=== PATIENT | female | born 2000 | race African-American/Black ===

== ENCOUNTER 2021-02-25 11:58 | Emergency (ER) | payer OTHER, SELFPAY ==
[2021-02-25 12:04] VITALS: BP 150/73; PULSE 81; RESP 18; TEMP 36.6; O2SAT 100
[2021-02-25 12:39] LABS: Basophils Percent Auto 0.3 % (0.2-1.2); Hematocrit 41.2 % (37.0-47.0); Hemoglobin 12.6 g/dL (12.0-15.0); Immature Granulocyte Absolute 0.01 K/mm3 (0.00-0.031); Immature Granulocyte Percent A 0.1 % (0-0.5); Lymphocytes Absolute Auto 3.13 K/mm3 (0.9-3.2); Lymphocytes Percent Auto 39.8 % (18.3-44.2); Mean Corpuscular HGB Conc 30.6 g/dl (32-36); Mean Corpuscular Hemoglobin 27.5 pg (26-34); Mean Platelet Volume 11.6 fl (7.4-10.4); Monocytes Absolute Auto 0.5 K/mm3 (0.1-0.6); Monocytes Percent Auto 5.7 % (2.6-8.5); Neutrophils Absolute Auto 4.3 K/mm3 (1.3-6.7); Neutrophils Percent Auto 54.1 % (45.5-73.1); Platelet Count Result 291 k/mm3 (150-375); Red Blood Count 4.58 M/mm3 (4.2-5.4); White Blood Count 7.9 K/mm3 (4.5-10.0)
[2021-02-25 12:57] LABS: Alanine Aminotransferase 29 U/L (4-35); Alkaline Phosphatase 74 U/L (38-126); Anion Gap 7 mmol/L (8-16); Aspartate Amino Transferase 26 U/L (14-36); Bilirubin,Total 0.5 mg/dL (0.2-1.3); Blood Urea Nitrogen 10 mg/dL (7-17); Calcium 10.1 mg/dL (8.4-10.2); Carbon Dioxide 23 mmol/L (22-30); Chloride 107 mmol/L (98-107); Estimated CRCL calculation 136 ml/min; Estimated Glomerular Filt Rate > 60; Glucose 93 mg/dL (65-110); Lipase 56 U/L (23-300); Potassium 3.9 mmol/L (3.4-5.0); Sodium 137 mmol/L (137-145)
[2021-02-25 13:13] LABS: Add Urine Microscopic? YES; Appearance Urine Clear (Clear); Bacteria Urine Trace /hpf; Bilirubin Urine Negative (Negative); Blood Urine 1+ (Negative); Color Urine Yellow (Yellow); Glucose Urine UA Negative (Negative); Ketones Urine 1+ mg/dL (Negative); Leukocyte Esterase Ur Negative LEU/UL (Negative); Mucus Urine Rare /lpf; Nitrate Urine Negative (Negative); Protein Urine 1+ mg/dL (Negative); RBC Urine 0-2 /hpf (0-2); Urobilinogen Urine Negative mg/dL (<2.0); WBC Urine 0-3 /hpf
[2021-02-25 13:14] LABS: Specific Grav Ur 1.032 (1.001-1.035)
--- NOTE | 2021-02-25 14:56 | ED.GENADULT ---
HPI - General Adult General Chief complaint: Abdominal Pain Stated complaint: abd pain Time Seen by Provider: 02/25/21 14:23 Source: patient and RN notes reviewed Mode of arrival: ambulatory Limitations: no limitations History of Present Illness HPI narrative: Patient is 20 years old -[place] female presents to the ED with vaginal spotting for the last 1-1/2 weeks, diarrhea for the last 3 weeks, nausea since last night. Patient denies any fever, chills, or urinary symptoms. Patient denies exposure to anybody with COVID-19. Patient is not vaccinated. Patient reports diarrhea up to 2 times a day, and the. Started 1 and half weeks ago but been spotting the last few days. Patient denies any possibility of . Patient reports a lot of stress lately. Related Data Allergies Allergy/AdvReac Type Severity Reaction Status Date / Time acetaminophen Allergy Unknown Itching Verified 02/25/21 15:16 shellfish derived Allergy Unknown Itching Verified 02/25/21 15:16 Grass Allergy Unknown Rash Uncoded 02/25/21 12:07 Review of Systems Review of Systems: CONSTITUTIONAL: Denies fever, chills, or sweats. EYES: Denies visual changes, redness, or discharge. ENT: Denies rhinorrhea, congestion, sore throat, or otalgia. CARDIOVASCULAR: Denies chest pain, palpitations, or edema. RESPIRATORY: Denies cough or dyspnea. GASTROINTESTINAL: Denies abdominal pain, nausea, vomiting, or diarrhea. GENITOURINARY: Denies dysuria or hematuria. SKIN: Denies rash or itching. MUSCULOSKELETAL: Denies back pain, joint pain, or myalgia. NEUROLOGIC: Denies headache, numbness, or weakness. PSYCHIATRIC: Denies anxiety or depression. Exam Narrative: General appearance: Well-developed, well-nourished Skin: Normal color Head: Normocephalic, nontraumatic Eyes: Clear conjunctiva ENT: Oropharynx normal, ears normal, nose normal Neck: Supple, nontender Chest and respiratory: Airway patent, no respiratory distress, no accessory muscle use Heart: Regular rate/rhythm Abdomen: Soft, nontender, no organomegaly, quiet bowel sounds Vascular: Normal peripheral pulses, normal capillary refill. 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, no gross motor deficit Course Course Emergency Course: Stable Vital Signs Vital signs: Vital Signs Temperature 36.6 C 02/25/21 12:04 Pulse Rate 81 02/25/21 12:04 Respiratory Rate 18 02/25/21 12:04 Blood Pressure 150/73 H 02/25/21 12:04 Pulse Oximetry 100 02/25/21 12:04 Temperature 36.6 C 02/25/21 12:04 Pulse Rate 81 02/25/21 12:04 Respiratory Rate 18 02/25/21 12:04 Blood Pressure 150/73 H 02/25/21 12:04 Pulse Oximetry 100 02/25/21 12:04 Medical Decision Making MDM Narrative Medical decision making narrative: Patient came because of diarrhea for the last 3 weeks, also her menstrual cycle longer than usual. Differential diagnosis as below. Labs, IV fluid, IV Zofran, Reglan and Benadryl started. Further plan to follow Work-up showed no significant findings to explain patient condition. Stress-like symptoms could be the underlying cause. Patient will be discharged on Zofran. Differential Diagnosis Differential Diagnosis: , viral gastroenteritis, stress related symptoms Vital Signs Vital Signs: Vital Signs Temperature 36.6 C 02/25/21 12:04 Pulse Rate 81 02/25/21 12:04 Respiratory Rate 18 02/25/21 12:04 Blood Pressure 150/73 H 02/25/21 12:04 Pulse Oximetry 100 02/25/21 12:04 Temperature 36.6 C 02/25/21 12:04 Pulse Rate 81 02/25/21 12:04 Respiratory Rate 18 02/25/21 12:04 Blood Pressure 150/73 H 02/25/21 12:0
[2021-02-25] MEDS: diphenhydrAMINE HCl INJ 50 MG/ML VIAL 25 MG IV PUSH (15:16)
[2021-02-25] MEDS: ONDANSETRON INJ 4 MG/2 ML VIAL IV PUSH (15:16)
[2021-02-25] MEDS: METOCLOPRAMIDE HCL INJ 10 MG/2 ML VIAL IV PUSH (15:16)
[2021-02-25] MEDS: SODIUM CHLORIDE 0.9% IV 1,000 ML 999 ML IV CONT (15:17)
== END 2021-02-25 17:16 | disposition home or self-care (01) ==
PROVIDERS: Emergency Provider Emergency Medicine
DX: N93.8 Other specified abnormal uterine and vaginal bleeding (principal); K52.9 Noninfective gastroenteritis and colitis, unspecified
CPT/HCPCS: 36415; 80053; 81001; 81025; 83690; 85025; 96361; 96374; 96375; 99284; J1200; J2405; J2765; J7030

== ENCOUNTER 2021-05-28 14:43 | Emergency (ER) | payer OTHER, SELFPAY ==
[2021-05-28 14:47] VITALS: BP 150/97; PULSE 89; RESP 18; TEMP 36.2; O2SAT 99
[2021-05-28 15:46] LABS: Add Urine Microscopic? YES; Appearance Urine Cloudy (Clear); Bacteria Urine Trace /hpf; Bilirubin Urine Negative (Negative); Blood Urine Negative (Negative); Color Urine Yellow (Yellow); Glucose Urine UA Negative (Negative); Ketones Urine Negative (Negative); Leukocyte Esterase Ur 3+ LEU/UL (Negative); Mucus Urine Rare /lpf; Nitrate Urine Negative (Negative); Protein Urine 1+ mg/dL (Negative); RBC Urine 21-50 /hpf (0-2); Specific Grav Ur 1.017 (1.001-1.035); Squamous Epithelial Cell Urine Many /hpf (Few); Urobilinogen Urine Negative mg/dL (<2.0); WBC Urine >75 /hpf
[2021-05-28 15:52] LABS: Basophils Percent Auto 0.3 % (0.2-1.2); Eosinophils Absolute Auto 0.1 K/mm3 (0-0.3); Eosinophils Percent Auto 1.1 % (0-4.4); Hemoglobin 12.4 g/dL (12.0-15.0); Immature Granulocyte Absolute 0.02 K/mm3 (0.00-0.031); Immature Granulocyte Percent A 0.2 % (0-0.5); Lymphocytes Absolute Auto 3.38 K/mm3 (0.9-3.2); Lymphocytes Percent Auto 34.1 % (18.3-44.2); Mean Corpuscular HGB Conc 32.6 g/dl (32-36); Mean Platelet Volume 11.5 fl (7.4-10.4); Monocytes Absolute Auto 0.6 K/mm3 (0.1-0.6); Monocytes Percent Auto 6.1 % (2.6-8.5); Neutrophils Absolute Auto 5.8 K/mm3 (1.3-6.7); Neutrophils Percent Auto 58.2 % (45.5-73.1); Platelet Count Result 280 k/mm3 (150-375); Red Blood Count 4.27 M/mm3 (4.2-5.4); Red Cell Distribution Width 13.1 % (11.5-14.5); White Blood Count 9.9 K/mm3 (4.5-10.0)
[2021-05-28 16:04] LABS: Alanine Aminotransferase 33 U/L (4-35); Albumin Level 4.7 g/dL (3.5-5.1); Alkaline Phosphatase 82 U/L (38-126); Anion Gap 8 mmol/L (8-16); Aspartate Amino Transferase 26 U/L (14-36); Bilirubin,Total 0.4 mg/dL (0.2-1.3); Blood Urea Nitrogen 9 mg/dL (7-17); Carbon Dioxide 26 mmol/L (22-30); Chloride 107 mmol/L (98-107); Estimated CRCL calculation 180 ml/min; Estimated Glomerular Filt Rate > 60; Glucose 89 mg/dL (65-110); Lipase 61 U/L (23-300); Potassium 3.9 mmol/L (3.4-5.0); Sodium 141 mmol/L (137-145)
--- NOTE | 2021-05-28 17:39 | PC.NURSE ---
Pt to the intake desk and states im in too much pain to wait, im going to go home
== END 2021-05-29 04:33 | disposition left against medical advice (07) ==
LOC: ANHED 17:48
PROVIDERS: Emergency Provider Emergency Medicine
DX: R10.9 Unspecified abdominal pain (principal)
CPT/HCPCS: 36415; 80053; 81001; 81025; 83690; 85025; 87086; 87088; 99199

== ENCOUNTER 2021-06-01 21:18 | Emergency (ER) | payer OTHER, SELFPAY ==
--- NOTE | ~2021-06-01 | XR_ITS ---
EXAMINATION: XR chest 2V DATE: 06/01/2021 22:07 INDICATION: Chest pain TECHNIQUE: frontal and lateral views of the chest were obtained. COMPARISON: None FINDINGS: Small lung volumes. Underpenetration related to body habitus which decreases sensitivity beyond the l ateral projection. No airspace opacities, pulmonary edema, pleural effusion or pneumothorax. The card iomediastinal silhouette is normal. IMPRESSION: 1. Small lung volumes. No acute cardiopulmonary disease. Reviewed, dictated and finalized at location A. 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
[2021-06-01 21:33] VITALS: BP 132/82; PULSE 98; RESP 24; TEMP 36.6; O2SAT 98
--- NOTE | 2021-06-01 21:53 | ECG_ITS ---
Measurements Intervals [place] Rate: 91 P: 49 NH: 148 QRS: 31 QRSD: 92 T: -2 QT: 343 QTc: 422 Interpretive Statements SINUS RHYTHM BORDERLINE ST-T WAVE ABNORMALITY- ANT/INF LEADS BASELINE ARTIFACT- I, III, AVL BORDERLINE ECG Electronically Signed On 06-02-2021 7:59:31 ENVELOPE ADJUSTER by Luis Alfredo Mcgraw D.O.
[2021-06-01 21:58] VITALS: BP 132/82; PULSE 98; RESP 20; TEMP 36.6; O2SAT 98
[2021-06-01 22:00] LABS: Basophils Percent Auto 0.3 % (0.2-1.2); Eosinophils Absolute Auto 0.1 K/mm3 (0-0.3); Eosinophils Percent Auto 1.3 % (0-4.4); Hematocrit 36.1 % (37.0-47.0); Hemoglobin 11.9 g/dL (12.0-15.0); Immature Granulocyte Absolute 0.03 K/mm3 (0.00-0.031); Immature Granulocyte Percent A 0.3 % (0-0.5); Lymphocytes Absolute Auto 3.93 K/mm3 (0.9-3.2); Lymphocytes Percent Auto 36.1 % (18.3-44.2); Mean Platelet Volume 11.3 fl (7.4-10.4); Monocytes Absolute Auto 0.8 K/mm3 (0.1-0.6); Monocytes Percent Auto 7.4 % (2.6-8.5); Neutrophils Percent Auto 54.6 % (45.5-73.1); Platelet Count Result 275 k/mm3 (150-375); Red Cell Distribution Width 12.9 % (11.5-14.5); White Blood Count 10.9 K/mm3 (4.5-10.0)
--- NOTE | 2021-06-01 22:05 | ED.ABDPAIN ---
HPI - Abdominal Pain General Chief Complaint: Abdominal Pain Stated Complaint: shoulder pain, abd pain, chest pain Time Seen by Provider: 06/01/21 21:50 Source: patient Mode of arrival: ambulatory Limitations: no limitations History of Present Illness HPI narrative: Patient is a 20-year-old female complaining of right upper quadrant pain, 8 out of 10, sharp, radiating to back started approximately 3 weeks ago. Patient states that she was seen here 4 days ago for the same complaint but left AMA because the wait was too long. Labs were done while she was at the waiting room 4 days ago and were all within normal limits. Patient denies any chest pain, shortness of breath, nausea, vomiting, diarrhea, urinary symptoms, fever or chills. Related Data Allergies Allergy/AdvReac Type Severity Reaction Status Date / Time acetaminophen Allergy Unknown Itching Verified 02/25/21 15:16 shellfish derived Allergy Unknown Itching Verified 02/25/21 15:16 Grass Allergy Unknown Rash Uncoded 02/25/21 12:07 Review of Systems Review of Systems: All systems reviewed & are unremarkable except as noted in HPI and below Constitutional: Constitutional: Denies body ache(s), Denies chills, Denies excessive sweating, Denies fatigue, Denies fever(s), Denies headache(s), Denies lethargy, Denies malaise, Denies weakness and Denies weight loss Eyes: Eyes: Denies blurry vision, Denies change in vision and Denies loss of vision ENT: Denies dizziness, Denies ear discharge, Denies headache(s), Denies lip swelling, Denies epistaxis, Denies nasal congestion, Denies neck pain, Denies throat swelling and Denies tongue swelling Cardiovascular: Cardiovascular: Denies chest pain, Denies chest pain at rest, Denies chest pain with activity, Denies diaphoresis, Denies rapid heart rate, Denies edema, Denies irregular heart rhythm, Denies lightheadedness, Denies palpitations, Denies dyspnea and Denies dyspnea on exertion Respiratory: Respiratory: Denies chest congestion, Denies cough, Denies hemoptysis, Denies dyspnea and Denies dyspnea on exertion Gastrointestinal: Gastrointestinal: Denies melena, Denies hematochezia, Denies diarrhea, Denies nausea, Denies vomiting and Denies hematemesis Musculoskeletal: Musculoskeletal: Denies abnormal gait, Denies deformity, Denies joint swelling, Denies limited range of motion, Denies neck pain and Denies numbness Neurologic: Denies Abnormal speech present, Denies abnormal gait, Denies confusion, Denies dizziness, Denies headache(s), Denies focal weakness, Denies loss of vision, Denies numbness, Denies Other visual disturbances, Denies Sensory deficit (Neuro) and Denies weakness Psychiatric: Psychiatric: Denies confusion, Denies depression, Denies auditory hallucinations, Denies homicidal ideation and Denies suicidal ideation Endocrine: Endocrine: Denies cold intolerance, Denies excessive sweating, Denies fatigue, Denies heat intolerance and Denies palpitations Hematologic/Lymphatic: Hematologic/Lymphatic: Denies easy bleeding and Denies easy bruising Allergic/Immunologic: Allergic/Immunologic: Denies lip swelling, Denies throat swelling and Denies tongue swelling PMFSH Comments Past medical history: None Family history: Noncontributory Social history: Non-smoker no EtOH or drug use Exam Const: General: cooperative, healthy appearing, comfortable, no acute distress, well developed, alert and awake; No confusion Orientation/consciousness: oriented to person, oriented to place, oriented to time, patient oriented x3 and No confusion Limitations: no limitations HENMT: Head: normal to inspection, normocephalic and atraumatic Ears: hearing grossly normal bilaterally, TM normal on the right and TM normal on the left General nose exam: Normal external nose present, Normal nares present and No nasal discharge present Face and sinus: normal facial exam Mouth: Yes Normal oral and palatal mucosa present, Yes lip normal, Yes tongue normal and Yes oropharyn
[2021-06-01 22:11] LABS: Alanine Aminotransferase 23 U/L (4-35); Albumin Level 4.4 g/dL (3.5-5.1); Alkaline Phosphatase 85 U/L (38-126); Anion Gap 10 mmol/L (8-16); Aspartate Amino Transferase 25 U/L (14-36); Bilirubin,Total 0.4 mg/dL (0.2-1.3); Blood Urea Nitrogen 8 mg/dL (7-17); Calcium 9.1 mg/dL (8.4-10.2); Carbon Dioxide 25 mmol/L (22-30); Chloride 104 mmol/L (98-107); Estimated CRCL calculation 180 ml/min; Estimated Glomerular Filt Rate > 60; Glucose 99 mg/dL (65-110); Lipase 46 U/L (23-300); Sodium 139 mmol/L (137-145)
--- NOTE | 2021-06-01 23:21 | PC.NURSE ---
Assuming care of pt. Pt has been unable to give urine sample pt wanting to be straight cath'd at this time.
[2021-06-01] MEDS: PROMETHAZINE HCL 25 MG/ML AMPUL 12.5 MG IV PUSH (23:33)
[2021-06-01] MEDS: SODIUM CHLORIDE 0.9% IV 1,000 ML 999 ML IV CONT (23:33)
[2021-06-01] MEDS: KETOROLAC 30 MG/ML VIAL (*BKC) IV PUSH (23:34)
[2021-06-02 00:03] VITALS: BP 125/65; PULSE 85; RESP 16; O2SAT 100
[2021-06-02 00:41] VITALS: BP 133/78; PULSE 93; RESP 16; O2SAT 98
== END 2021-06-02 00:46 | disposition home or self-care (01) ==
PROVIDERS: Emergency Provider Emergency Medicine
DX: K80.50 Calculus of bile duct without cholangitis or cholecystitis without obstruction (principal); R94.31 Abnormal electrocardiogram [ECG] [EKG]
CPT/HCPCS: 36415; 71046; 80053; 83690; 85025; 93005; 96361; 96374; 96375; 99284; J1885; J2550; J7030

== ENCOUNTER 2021-10-21 01:11 | Emergency (ER) | payer OTHER, SELFPAY ==
--- NOTE | ~2021-10-21 | XR_ITS ---
EXAMINATION: XR abdomen obstructive series EXAM DATE: 10/21/2021 02:31 INDICATION: Abdominal pain. TECHNIQUE: Frontal upright projection of the upper abdomen, frontal projection of the lower abdomen f or interpretation. There is no prior study for comparison. FINDINGS: There is expected amount of colonic stool and gas. No small bowel dilation, nonobstructiv e bowel gas pattern. There are no suspicious calcifications identified. There is no organomegaly suspected. The bones are unremarkable. There is no free intraperitoneal air. The lung bases are clear. IMPRESSION: Unremarkable abdomen x-ray exam. Reviewed, dictated and finalized at location A.
[2021-10-21 01:14] VITALS: BP 124/75; PULSE 88; RESP 17; TEMP 36.6; O2SAT 100
[2021-10-21 01:35] LABS: Add Urine Microscopic? YES; Appearance Urine Cloudy (Clear); Bacteria Urine Trace /hpf; Bilirubin Urine Negative (Negative); Blood Urine 3+ (Negative); Color Urine Yellow (Yellow); Glucose Urine UA Negative (Negative); Ketones Urine 1+ mg/dL (Negative); Leukocyte Esterase Ur Negative LEU/UL (Negative); Mucus Urine Rare /lpf; Nitrate Urine Negative (Negative); Protein Urine Negative (Negative); Specific Grav Ur 1.013 (1.001-1.035); Squamous Epithelial Cell Urine Moderate /hpf (Few); WBC Urine 0-3 /hpf
--- NOTE | 2021-10-21 02:44 | ED.ABDPAIN ---
HPI - Abdominal Pain General Chief Complaint: Abdominal Pain Stated Complaint: Abd pain, on period for 2 months Source: patient and family History of Present Illness HPI narrative: 20-year-old female presenting to the emergency department for evaluation of 2 months of intermittent abdominal pain with associated nausea. Patient states that she does not marijuana daily to help with the nausea. Patient states over the last 2 months she has increased her marijuana intake. This does correlate with when her symptoms began to worsen. Related Data Allergies Allergy/AdvReac Type Severity Reaction Status Date / Time acetaminophen Allergy Unknown Itching Verified 10/21/21 01:16 shellfish derived Allergy Unknown Itching Verified 10/21/21 01:16 Grass Allergy Unknown Rash Uncoded 07/02/21 13:38 Review of Systems Review of Systems: CONSTITUTIONAL: Denies fever, chills, or sweats. EYES: Denies visual changes, redness, or discharge. ENT: Denies rhinorrhea, congestion, sore throat, or otalgia. CARDIOVASCULAR: Denies chest pain, palpitations, or edema. RESPIRATORY: Denies cough or dyspnea. GASTROINTESTINAL: see HPI GENITOURINARY: Denies dysuria or hematuria. SKIN: Denies rash or itching. MUSCULOSKELETAL: Denies back pain, joint pain, or myalgia. NEUROLOGIC: Denies headache, numbness, or weakness. [facility] Past Medical History Medical History (Updated 10/27/21 @ 20:11 by Sascha Bermudez MD) RUQ abdominal pain Social History Social History Smoking status: Never smoker Exam Narrative: APPEARANCE: Well appearing, no pain, no distress, well-nourished. HEAD: normocephalic, atraumatic. EYES: PERRLA/EOMI, conjunctivae clear. NOSE: Normal no drainage THROAT: Pharynx clear, no exudate. NECK: Supple. No adenopathy, no masses. RESPIRATORY: Airway patent, respirations nonlabored. Clear to auscultation bilaterally, no rales, rhonchi, wheezing. CARDIOVASCULAR: Regular rate and rhythm without murmurs rubs or gallops. ABDOMINAL: Soft, nontender, nondistended, normal bowel sounds, diffuse abdominal pain without rebound or guarding. MUSCULOSKELETAL: Moves all extremities. Strength/ROM intact, No edema, No calf tenderness. NEURO: Alert. Cranial nerves II through XII intact. Grossly intact. SKIN: Warm, dry. Normal Color Course Course Emergency Course: Patient did feel improved with treatment emergency room. Patient's work-up was reviewed with the patient. Patient was educated on reasons to return to the emergency department and on the importance of close follow-up with her primary care physician. Patient was also encouraged to cease her marijuana intake. Vital Signs Vital signs: Vital Signs Temperature 97.9 F 10/21/21 01:14 Pulse Rate 88 10/21/21 01:14 Respiratory Rate 17 10/21/21 01:14 Blood Pressure 124/75 10/21/21 01:14 Pulse Oximetry 100 10/21/21 01:14 Temperature 97.9 F 10/21/21 01:14 Pulse Rate 88 10/21/21 01:14 Respiratory Rate 17 10/21/21 01:14 Blood Pressure 124/75 10/21/21 01:14 Pulse Oximetry 100 10/21/21 01:14 MDM - Abdominal Pain Lab Data Attestation: I reviewed the patient's lab results. Result diagrams: 10/21/21 03:17 10/21/21 03:17 Labs: Lab Results 10/21/21 10/21/21 10/21/21 Range/Units 01:26 03:17 03:17 WBC 9.7 (4.5-10.0) K/mm3 RBC 3.95 L (4.2-5.4) M/mm3 Hgb 10.8 L (12.0-15.0) g/dL Hct 34.2 L (37.0-47.0) % MCV 86.6 (80-100) fl MCH 27.3 (26-34) pg MCHC 31.6 L (32-36) g/dl RDW 13.8 (11.5-14.5) % Plt Count 321 (150-375) k/mm3 MPV 11.7 H (7.4-10.4) fl Immature Gran % (Auto) 0.3 (0-0.5) % Neut % (Auto) 52.8 (45.5-73.1) % Lymph % (Auto) 39.2 (18.3-44.2) % [place] % (Auto) 7.2 (2.6-8.5) % Eos % (Auto) 0.2 (0-4.4) % Baso % (Auto) 0.3 (0.2-1.2) % Lymph # (Auto) 3.79 H (0.9-3.2) K/mm3 [place] # (Auto) 0.7 H (0.1-0.6) K
[2021-10-21] MEDS: SODIUM CHLORIDE 0.9% IV 1,000 ML 999 ML IV CONT (03:09)
[2021-10-21] MEDS: METOCLOPRAMIDE HCL INJ 10 MG/2 ML VIAL IV PUSH (03:10)
[2021-10-21] MEDS: diphenhydrAMINE HCl INJ 50 MG/ML VIAL 25 MG IV PUSH (03:10)
[2021-10-21] MEDS: KETOROLAC 15 MG/ML VIAL (*BKC) IV PUSH (03:10)
[2021-10-21 03:24] LABS: Basophils Percent Auto 0.3 % (0.2-1.2); Eosinophils Percent Auto 0.2 % (0-4.4); Hematocrit 34.2 % (37.0-47.0); Hemoglobin 10.8 g/dL (12.0-15.0); Immature Granulocyte Absolute 0.03 K/mm3 (0.00-0.031); Immature Granulocyte Percent A 0.3 % (0-0.5); Lymphocytes Absolute Auto 3.79 K/mm3 (0.9-3.2); Lymphocytes Percent Auto 39.2 % (18.3-44.2); Mean Corpuscular HGB Conc 31.6 g/dl (32-36); Mean Corpuscular Hemoglobin 27.3 pg (26-34); Mean Corpuscular Volume 86.6 fl (80-100); Mean Platelet Volume 11.7 fl (7.4-10.4); Monocytes Absolute Auto 0.7 K/mm3 (0.1-0.6); Monocytes Percent Auto 7.2 % (2.6-8.5); Neutrophils Absolute Auto 5.1 K/mm3 (1.3-6.7); Neutrophils Percent Auto 52.8 % (45.5-73.1); Platelet Count Result 321 k/mm3 (150-375); Red Blood Count 3.95 M/mm3 (4.2-5.4); Red Cell Distribution Width 13.8 % (11.5-14.5); White Blood Count 9.7 K/mm3 (4.5-10.0)
--- NOTE | 2021-10-21 03:41 | PC.NURSE ---
Patient concerned that the was not addressing her having a very long period. ARGENIS Damico aware and states, I am not concerned if her blood work looks fine
[2021-10-21 03:51] LABS: Alanine Aminotransferase 17 U/L (4-35); Albumin Level 4.9 g/dL (3.5-5.1); Alkaline Phosphatase 85 U/L (38-126); Anion Gap 11 mmol/L (8-16); Aspartate Amino Transferase 23 U/L (14-36); Bilirubin,Total 0.4 mg/dL (0.2-1.3); Blood Urea Nitrogen 8 mg/dL (7-17); Calcium 9.3 mg/dL (8.4-10.2); Carbon Dioxide 19 mmol/L (22-30); Chloride 108 mmol/L (98-107); Estimated Glomerular Filt Rate > 60; Glucose 109 mg/dL (65-110); Lipase 63 U/L (23-300); Potassium 3.7 mmol/L (3.4-5.0); Sodium 138 mmol/L (137-145)
[2021-10-21] MEDS: ONDANSETRON INJ 4 MG/2 ML VIAL IV PUSH (04:44)
== END 2021-10-21 05:21 | disposition home or self-care (01) ==
PROVIDERS: Emergency Provider Emergency Medicine
DX: R11.2 Nausea with vomiting, unspecified (principal)
CPT/HCPCS: 36415; 74019; 80053; 81001; 81025; 83690; 85025; 96361; 96374; 96375; 99284; J1200; J1885; J2405; J2765; J7030

== ENCOUNTER 2021-11-26 15:42 | Outpatient (CLI) | payer OTHER, SELFPAY ==
[2021-11-26 16:05] LABS: Hematocrit 32.5 % (37.0-47.0); Hemoglobin 9.7 g/dL (12.0-15.0); Mean Corpuscular HGB Conc 29.8 g/dl (32-36); Mean Corpuscular Hemoglobin 25.9 pg (26-34); Mean Corpuscular Volume 86.7 fl (80-100); Mean Platelet Volume 11.2 fl (7.4-10.4); Platelet Count Result 379 k/mm3 (150-375); Red Blood Count 3.75 M/mm3 (4.2-5.4); Red Cell Distribution Width 14.8 % (11.5-14.5); White Blood Count 7.1 K/mm3 (4.5-10.0)
[2021-11-26 16:15] LABS: Alanine Aminotransferase 15 U/L (6-35); Albumin Level 4.1 g/dL (3.5-5.1); Alkaline Phosphatase 69 U/L (38-126); Amylase 79 U/L (30-110); Anion Gap 3 mmol/L (8-16); Aspartate Amino Transferase 24 U/L (14-36); Bilirubin,Total < 0.1 mg/dL (0.2-1.3); Blood Urea Nitrogen 5 mg/dL (7-17); Calcium 8.9 mg/dL (8.4-10.2); Carbon Dioxide 28 mmol/L (22-30); Chloride 110 mmol/L (98-107); Estimated Glomerular Filt Rate > 60; Glucose 98 mg/dL (65-110); Lipase 70 U/L (23-300); Sodium 141 mmol/L (137-145)
== END 2021-11-26 15:43 | disposition home or self-care (01) ==
LOC: ANHLAB 15:43
PROVIDERS: Visit Provider Obstetrics & Gynecology
DX: Z11.3 Encounter for screening for infections with a predominantly sexual mode of transmission (principal); R11.2 Nausea with vomiting, unspecified; R30.0 Dysuria
CPT/HCPCS: 36415; 80053; 82150; 83690; 85027; 87086; 87491; 87591; 87661; 87808

== ENCOUNTER 2023-03-17 12:19 | Emergency (ER) | payer BC, SELFPAY ==
[2023-03-17 12:30] VITALS: BP 153/81; PULSE 50; RESP 18; TEMP 36.6; O2SAT 100
--- NOTE | 2023-03-17 12:39 | ED.WOUNDLAC ---
HPI - Wound/Laceration General Chief Complaint: Wound/Laceration Stated Complaint: Laceration to Left Foot/Heel Time Seen by Provider: 03/17/23 12:40 Source: patient Mode of arrival: ambulatory Limitations: no limitations History of Present Illness HPI narrative: 22-year-old female presents with laceration to left heel. Patient reports that her shower curtain broke and she cut herself while trying to step over it. Thinks that the shower curtain chantel was made of metal. Bleeding controlled. Tetanus up-to-date. All systems reviewed and negative except as noted above. Related Data Home Medications Medication Instructions Recorded Confirmed No Home Medications 03/17/23 03/17/23 Allergies Allergy/AdvReac Type Severity Reaction Status Date / Time acetaminophen Allergy Unknown Itching Verified 03/17/23 12:47 shellfish derived Allergy Unknown Itching Verified 03/17/23 12:47 Grass Allergy Unknown Rash Uncoded 01/09/22 09:22 Review of Systems Review of Systems: CONSTITUTIONAL: Denies fever, chills, or sweats. EYES: Denies visual changes, redness, or discharge. ENT: Denies rhinorrhea, congestion, sore throat, or otalgia. CARDIOVASCULAR: Denies chest pain, palpitations, or edema. RESPIRATORY: Denies cough or dyspnea. GASTROINTESTINAL: Denies abdominal pain, nausea, vomiting, or diarrhea. GENITOURINARY: Denies dysuria or hematuria. SKIN: Denies rash or itching. Reports laceration to left heel. MUSCULOSKELETAL: Denies back pain, joint pain, or myalgia. NEUROLOGIC: Denies headache, numbness, or weakness. PSYCHIATRIC: Denies anxiety or depression. All other systems reviewed are negative, except as documented in HPI. [facility] Past Medical History Medical History (Updated 03/17/23 @ 13:00 by Margarita Mccray NP) Anxiety and depression Asthma Chlamydia Dysuria Encounter for screening examination for sexually transmitted disease RUQ abdominal pain Family History Family History (Updated 11/26/21 @ 14:35 by NAVNEET Romero) Grandparent Diabetes mellitus maternal grandmother Hypertension Heart disease Other Breast cancer maternal grandmothers sister Social History Social History (Updated 11/26/21 @ 14:36 by NAVNEET Romero) Smoking status: Never smoker Tobacco type: e-cigarettes/vaping Alcohol intake: never Substance use: current Substance use type: marijuana Other substance usage details: daily for pain Living arrangements: with roommate(s) Additional living arrangements comments: single Occupation/Education: unemployed Gender identity (if verbalized by the patient): Female Sexual Orientation (if Verbalized by the Patient): Straight or Heterosexual Comments At time of signature, agree with nursing past medical, surgical, social and family history. There is no relevant family history pertinent to the presenting complaint. Exam Narrative: GENERAL: This is a well-nourished, well-developed patient, in no apparent distress. HEAD: normocephalic, atraumatic. EYES: PERRL. Sclera clear/white. Vision is grossly intact. EARS: External ears normal NOSE: External nose normal NECK: Neck supple, non-tender without lymphadenopathy, masses or thyromegaly. CARDIOVASCULAR: Regular rate and rhythm without murmurs, gallops, or rubs. RESPIRATORY: Clear to auscultation. Breath sounds equal bilaterally. No wheezes, rales, or rhonchi. SKIN: warm, Dry, with no suspicious lesions or rash, good texture and turgor. Superficial laceration to posterior left heel. Bleeding controlled. Non gaping. NEURO: awake, alert, and oriented to person, place and time. There were no obvious focal neurologic abnormalities. EXTREMITIES: No joint tenderness, effusion, or edema noted. Course Course Level of Care: Express Care Visit Vital Signs Vital signs: Vital Signs Temperature 36.6 C 03/17/23 12:30 Pulse Rate 50 L 03/17/23 12:30 Respiratory Rate 18 03/17/23 12:30 Blood
== END 2023-03-17 13:10 | disposition home or self-care (01) ==
PROVIDERS: Emergency Provider Nurse Practitioner Family
DX: S91.312A Laceration without foreign body, left foot, initial encounter (principal); W45.8XXA Other foreign body or object entering through skin, initial encounter; F17.290 Nicotine dependence, other tobacco product, uncomplicated; J45.909 Unspecified asthma, uncomplicated
CPT/HCPCS: 99212; G0463

== ENCOUNTER 2024-06-07 09:58 | Emergency (ER) | payer SELFPAY ==
[2024-06-07 10:09] VITALS: BP 149/94; PULSE 69; RESP 16; TEMP 36.2; O2SAT 100
--- NOTE | 2024-06-07 13:04 | ED.DENTAL ---
HPI - Dental/Oral General Chief complaint: Headache Stated complaint: migraine Time Seen by Provider: 06/07/24 11:59 History of Present Illness HPI Narrative: 23-year-old female presenting with dental pain. States that she has a cracked tooth 1 of her upper left molars and it has been causing a lot of pain for the last week that radiates into the left side of her head. States that she has tried to get a dentist appointment but they can not get her in for a year. Has been using [id number] headache medications with some relief. No swelling or drainage. No difficulty breathing. Related Data Allergies Allergy/AdvReac Type Severity Reaction Status Date / Time acetaminophen Allergy Unknown Itching Verified 06/07/24 10:11 shellfish derived Allergy Unknown Itching Verified 06/07/24 10:11 Grass Allergy Unknown Rash Uncoded 01/09/22 09:22 Review of Systems Review of Systems: All systems reviewed & are unremarkable except as noted in HPI and below PMFSH Past Medical History Medical History Anxiety and depression Asthma Chlamydia Dysuria Encounter for screening examination for sexually transmitted disease RUQ abdominal pain Family History Family History Grandparent Diabetes mellitus maternal grandmother Hypertension Heart disease Other Breast cancer maternal grandmothers sister Social History Social History Smoking status: Never smoker Tobacco type: e-cigarettes/vaping Alcohol intake: never Substance use: current Substance use type: marijuana Other substance usage details: daily for pain Living arrangements: with roommate(s) Additional living arrangements comments: single Occupation/Education: unemployed Gender identity (if verbalized by the patient): Female Sexual Orientation (if Verbalized by the Patient): Straight or Heterosexual Exam Narrative: GENERAL: Well-appearing, well-nourished, and in no acute distress. HEAD: Normocephalic, atraumatic. EYES: PERRLA and EOMI. ENT: Multiple dental caries with a cracked upper left molar, tender with palpation, no abscesses or drainage NECK: Supple. CHEST: No respiratory distress. HEART: Regular rate and rhythm EXTREMITIES: Normal range of motion. SKIN: Warm, dry, no rash. NEURO: Alert and oriented x3. PSYCH: Normal mood and affect. Course Vital Signs Vital signs: Vital Signs Temperature 97.2 F L 06/07/24 10:09 Pulse Rate 69 06/07/24 10:09 Respiratory Rate 16 06/07/24 10:09 Blood Pressure 149/94 H 06/07/24 10:09 Pulse Oximetry 100 06/07/24 10:09 Temperature 97.2 F L 06/07/24 10:09 Pulse Rate 69 06/07/24 10:09 Respiratory Rate 16 06/07/24 10:09 Blood Pressure 149/94 H 06/07/24 10:09 Pulse Oximetry 100 06/07/24 10:09 MDM - Dental/Oral MDM Narrative Medical decision making narrative: 23-year-old female presenting with dental pain. Vitals stable. Exam remarkable for the above. She has been trying to get in with the dentist but is unable to in a timely manner. Start her on Augmentin and b.i.d. naproxen for pain control. Advise she continue trying to get a dental appointment. Appropriate return precautions given. She is agreeable this plan. Discharged in stable condition. Critical Care Time Critical Care Time Critical Care Time: No Discharge Plan Discharge Clinical Impression: Pain, dental Patient Disposition: Home, Self-Care Condition: Stable Instructions: Antibiotic Form, Toothache (ED) Additional Instructions: We have started you on antibiotics for your dental pain. Please take the pain medicine as prescribed as well. Please follow-up closely with Dentistry and primary care. If your symptoms worsen or other concerning symptoms arise, please return to the ER. Prescriptions: New amoxicillin-pot clavulanate 875-125 mg tablet 1 tablet PO Q12H Qty: 14 0RF naproxen 500 mg tablet 500 mg PO BID PRN (Reason: pain) Qty: 30 0RF Follow-up/Referrals: Maco Baez MD [Physician] -
[2024-06-07] MEDS: KETOROLAC 30 MG/ML VIAL (*BKC) IM (13:13)
[2024-06-07 13:27] VITALS: BP 131/72; PULSE 72; RESP 16; TEMP 36.7; O2SAT 99
== END 2024-06-07 13:29 | disposition home or self-care (01) ==
PROVIDERS: Emergency Provider Emergency Medicine
DX: K08.89 Other specified disorders of teeth and supporting structures (principal); F41.9 Anxiety disorder, unspecified; F32.A Depression, unspecified; J45.909 Unspecified asthma, uncomplicated
CPT/HCPCS: 96372; 99283; J1885

== ENCOUNTER → 2024-07-04 08:06 | Emergency (ER) | payer SELFPAY ==
[2024-07-04 08:29] VITALS: BP 152/89; PULSE 82; RESP 17; TEMP 36.6; O2SAT 100
--- NOTE | 2024-07-04 09:16 | PC.NURSE ---
pt approached intake desk and states she cannot wait any longer to get back to a room. pt ambulated out of ED w/ steady gait.
--- OUTSIDE RECORDS SUMMARY | 2024-07-11 06:26 | XMS_ITS | Encounter Summary ---
Author Organization [facility] Healthcare Address [address] [place] [address] Care Team Providers Care Communications Executive Name Role Phone Referring, Unknown MD Unavailable Unavailabl e Referring, Unknown MD Primary Care Provider Unav ailable Reason for Visit * Reason Comments Pelvic Pain Encounter Details Date Type Department Care Team (Late st Contact Info) Description 02/02/2020 2:14 AM CDT - 02/02/2020 6:18 AM CDT Emergency [facility] Emergency Department [address] [place] [address] Varun Guzman MD [address] [place] [address] Pelvic pain (Primary Dx) Discharge Disposition: Discharge to home or self care Social History Tobacco Use Types Packs/Day Years Used Date Smoking Tobacco: Some Days Comments:vape Alcohol Use Standard Drinks/Week Comments Never 0 (1 standard drink = 0.6 oz pur e alcohol) AUDIT-C Answer Date Recorded Q1: How often do you have a drink containing alc ohol? Never 02/01/2020 Average Number of Drinks Not on file 020 Frequency of Binge Drinking Not on file 01/12 Comments Unknown Sex and Gender Information Value Date Recorded Sex Assigned at Not on file Legal Sex Female 5:18 AM RN ORTHO Gender Identity Not on file Sexual Orientation Not on file documented as of this encounter Last Filed Vital Signs Vital Sign Reading Time Taken Comments Blood Pressure 129/74 02/02/2020 6:00 AM CDT Pulse 71 02/02/2020 6:00 AM CDT Temperature 36.6 ??C (97.9 ??F) 02/01/2020 11:01 PM C DT Respiratory Rate 20 02/01/2020 11:01 PM CDT Oxygen Saturation 99% 02/02/2020 6:00 AM CDT Inhaled Oxygen Concentration - - Weight 117.9 kg (260 lb) 02/01/2020 11:01 PM CDT Height 170.2 cm (5' 7 ) 02/01/2020 11:01 PM CDT Body Mass Index 40.72 02/01/2020 11:01 PM CDT documented in this encounter Discharge Diagnoses Diagnosis Pelvic and perineal pain - PELVIC AND PERINEAL PAIN Hyperlipidemia, unspecified - HYPERLIPIDEMIA, UNSPECIFIED Unspecified asthma, uncomplicated - UNSPECIFIED ASTHMA, UNCOMPLICATED Nicotine dependence, other tobacco product, uncomplicated - NICOTINE DEPENDENCE, OTHER TOBACCO PRODUCT, UNCOMPLICATED documented in this encounter Discharge Instructions * Discharge Instructions* Marcio Finney MD PhD - 02/02/2020 5:06 AM CDT Someone from [facility] will call you to schedule a follow-up appointment. For concerns or questions, please call: - Friday - Friday, 8:30 am - 4:00 pm: [phone] - After Hours/Weekends: [phone] [facility] Outpatient [facility] - [facility] [address] [place] [address], [address], [place] [address] Friday - Friday, 8:30a.m.-4:30 p.m. * Attachments The following attachments cannot be sent through Care Everywhere. * Ovarian Cyst (AfterCare(R) Instructions(ER/ED)) (Vincentian) documented in this encounter Discharge Disposition Disposition Code Departure Means Destination Discharge to home or self care documented in this encounter Consult Notes * Luna Rousseau MD - 02/02/2020 4:39 AM CDTAssociated Order(s): IP CONSULT TO [facility] Images from the original note were not included. [facility] ED2/ED2 Call back number: [phone] Pelvic bed: Yes CC: pelvic pain HPI: 19 y.o. G0 with history of ovarian cysts who presents with 1 day of pelvic pain. She reports asudden, sharp cramp that occurred yesterday morning and then spontaneously resolved. It then happened again around 2100 and made her double over in pain. She reports that she had some nausea, but denies any emesis. States the pain was worse with movement, but denies other alleviating/exacerbating factors. She reports an episode of pain 1 year ago where she went to [place] and was told she had bilateralovarian cysts that had ruptured. She was discharged with some pain medication and told to follow-upoutpatient. She does not have a primary [facility]. Past Medical History: Diagnosis Date ??? Asthma ??? Bilateral ovarian cysts ??? Hyperlipidemia History reviewed. No pertinent surgical history. OB History 0 Para 0 Term 0 0 AB 0 Living 0 SAB 0 TAB 0 Ectopic 0 Multiple 0 Live Births 0 [facility] History: Patient's last menstrual period was 01/06/2020. Menses: regular, every 30 days, lasting 3-4 days, not painful; pad q4 hours on heaviest day of bleeding Pap History: patient has never had a pap test. STD History: none Contraception: Condoms HRT: pre-menopausal HOME MEDICATIONS : Not on File Allergies as of 02/01/2020 - Reviewed 02/01/2020 Allergen Reaction Noted ??? Shellfish containing products Itching 02/01/2020 ? ? Tylenol [acetaminophen] Cough and Nausea & Vomiting 02/01/2020 Family History: reports aunt with blood clots at age 77; maternal great aunt with breast cancer Social History Tobacco Use ??? Smoking status: Current Some Day Smoker ??? Tobacco comment: vape Substance Use Topics ??? Alcohol use: Never Frequency: Never Safe at home: Yes Physical Exam: Temp: [97.9 ??F] 97.9 ??F Pulse: [64-82] 64 Resp: [20] 20 BP: (118-140)/(72-88) 118/72 General: comfortable, NAD, appropriate mood Pulmonary: non-labored Cardiovascular: Regular rate and rhythm Abdomen: obese, soft, non-distended; tender to deep palpation of the suprapubic area; no rebound tenderness or guarding Extremities: Warm and well perfused GENITAL EXAM: External:normal appearing and no lesions Vagina: no lesions and no discharge Cervix: nulliparous, no lesions Uterus: not enlarged, non-tender and exam limited due to body habitus Adnexa: non-tender and no palpable masses Recent Labs Lab Units 02/02/20 0144 WBC K/cumm 8.7 HEMOGLOBIN g/dL 12.4 HEMATOCRIT % 38.3 PLATELETS K/cumm 267 Lab Results Component Value Date HCGU Negative 02/02/2020 Imaging: UT: 8.30cm x 4.30cm x 4.89cm. Left adnexa: Ovary visualized: 3.43cm x 2.35cm x 2.91cm. likely hemorrhagic cyst/corpus luteum Right adnexa: Ovary visualized: 3.29cm x 2.64cm x 2.39cm. no masses seen Fluid in Cul-de-sac: trace PLAN: Elodia Hicks is a very pleasant 19 year old G0 female who presents with pelvic pain #Pelvic Pain - no evidence of torsion at this time; given symmetry of ovaries in normal anatomic positions, havelow concern for intermittent torsion - possible hemorrhagic cyst on left ovary; no evidence of cyst rupture based on trace fluid in CDS - multiple follicles visualized on right ovary in possible [id number] configuration, but patient reports regular monthly cycles and has no evidence of hirsutism on exam - discussed medical management with combined oral contraception; patient would like to consider further; she has no history of migraines; reported being a non- smoker to this provider (though chart documents current someday smoker ); has no history of hypertension - tasked for follow-up in [facility] Phone number for follow up: [phone] Go overnight. Luna Rousseau MD Cosigned by Malini Go DO at 02/02/2020 7:08 AM CDT Associated attestation - Malini Go DO - 02/02/2020 7:08 AM CDT The resident/fellow saw and examined the patient, we discussed their findings, and I am in agreement with the plan based on the discussion with the resident/fellow. I did not personally examine the patient. 19 year old G0 who presented to with an episode of pelvic pain. Abdominal and bimanual exam benign with no signs of acute abdomen or torsion. BSUS with bilateral doppler flow to ovaries. Vital signs stable. Recommended outpatient follow up to establish care with [facility]. Malini Go DO, MA Family Planning Fellow 02/02/2020 7:08 AM documented in this encounter ED Notes * Marcio Finney MD PhD - 02/02/2020 2:21 AM CDT HPI Chief Complaint Patient presents with ??? Pelvic Pain HPI 19 yo F w/ PMH asthma, HLD, bilateral ovarian cysts w/ hx rupture presents with intermittent pelvicpain x1 day. Has experienced crampy dull low abdominal pain that started yesterday morning, abated in the afternoon, but returned ~9pm significant enough to present to ED. Has known bilateral ovarian cysts w/ rupture ~1yr ago and concerned for similar process. Endorses mild nausae, no vomitng. No diarrhea/constiaption (normal BM the day before, did not look for color/blood.) Denies dysuria, vabinal pain or discharge. Hx uncomplicated UTI 05/2019. No hx STIs. Deneis fever/chills. Reports several syncopal episodes due to low pain tolerance , slumps or becomes minimally responsive, no shaking, no falls/trauma. Not observed here in ED. CBC wnl, BMP wnl. Trop negative UA, bHCG pending Patient History Patient Active Problem List Diagnosis Date Noted ??? Pelvic pain 02/02/2020 Past Medical History: Diagnosis Date ??? Asthma ??? Bilateral ovarian cysts ??? Hyperlipidemia History reviewed. No pertinent surgical history. History reviewed. No pertinent family history. Social History Tobacco Use ??? Smoking status: Current Some Day Smoker ??? Tobacco comment: vape Substance Use Topics ??? Alcohol use: Never Frequency: Never ??? Drug use: Never Sexually active one male partner, contraception is intermittent condom use Social History Social History Narrative ??? Not on file Works at a [employer]. Review of Systems Review of Systems Constitutional: Negative for appetite change, chills, diaphoresis and fever. HENT: Negative for sore throat. Respiratory: Negative for cough and shortness of breath. Cardiovascular: Negative for chest pain and palpitations. Gastrointestinal: Positive for abdominal pain. Negative for abdominal distention, constipation, diarrhea, nausea and vomiting. Genitourinary: Negative for urgency, vaginal discharge and vaginal pain. Musculoskeletal: Negative for joint swelling and myalgias. Neurological: Positive for syncope. Negative for seizures, facial asymmetry, weakness, light-headedness and headaches. Psychiatric/Behavioral: Negative for agitation and confusion. Physical Exam ED Triage Vitals [02/01/20 2301] Temp Pulse Resp BP SpO2 36.6 ??C (97.9 ??F) 82 20 140/88 98 % Temp src Heart Rate Source Patient Position BP Location FiO2 (%) Oral -- -- -- -- Physical Exam Constitutional: General: She is not in acute distress. Appearance: She is not ill-appearing. HENT: Head: Normocephalic and atraumatic. Mouth/Throat: Mouth: Mucous membranes are moist. Eyes: General: No scleral icterus. Extraocular Movements: Extraocular movements intact. Conjunctiva/sclera: Conjunctivae normal. Cardiovascular: Rate and Rhythm: Normal rate and regular rhythm. Pulses: Normal pulses. Heart sounds: Normal heart sounds. No murmur. Pulmonary: Effort: Pulmonary effort is normal. Breath sounds: Normal breath sounds. Abdominal: General: Abdomen is flat. Bowel sounds are normal. There is no distension. Palpations: Abdomen is soft. There is no mass. Tenderness: There is abdominal tenderness. There is no guarding or rebound. Comments: Suprapubic, midabdominal, mild, no rebound or gurading. Musculoskeletal: General: No swelling or tenderness. Skin: General: Skin is warm and dry. Coloration: Skin is not jaundiced. Findings: No rash. Neurological: General: No focal deficit present. Mental Status: She is alert and oriented to person, place, and time. Psychiatric: Mood and Affect: Mood normal. MDM 19F w/ hx asthma, bilateral ovarian cysts w/ hx rupture p/w 1 day intermittent crampy abdominal pain. Made her double over and syncopize w/o trauama (though low pain tolerance ) No infectious s/sx. Afebrile, VSS, HDS, CBC, CMP wnl, trop negative. bHCG negative, UA trace bacteria no whites no LE no nitrite low c/f UTI. Multiple IVs attempted for IVF (given vasovagal syncope), patient evental Ddx included intermittent torsion, OBGYN consulted, pelvic US with hemorrhagic cyst c/w current menstrual cycle. Pelvic exam benign. Recommended OCPs but patient defers at this time. Stable for discharge and patient amenable. Will follow up with [facility] outpatient. MDM Attending Summary of Care ED Course as of Feb 01 530 Time: 02/01 333 Comment: 19 yo F h/o asthma, bilat ovarian cyst/ruputre past c/o 1d pelvic pain/suprapubic cramping, intermittent/recurred 9p worse w sitting/better lying down, some nausea w/o f/c/s/vomiting/diarrhea. By: Varun Guzman MD Pelvic pain Marcio Finney MD PhD Resident 02/02/20529 Cosigned by Varun Guzman MD at 02/02/2020 7:00 AM CDT Associated attestation - Varun Guzman MD - 02/02/2020 7:00 AM CDT I have seen and examined the patient on 02/02/2020. I reviewed the resident's note and agree with the findings and plan of care as documented in the resident's note with modifications as documented inmy note. * Cassy Gutierrez RN - 02/02/2020 2:14 AM CDT Bed: [id number] Expected date: Expected time: Means of arrival: Car Comments: Cassy Gutierrez RN 02/02/20213 * Jada Garcia RN - 02/01/2020 11:02 PM CDT Pt arrives with report of pelvic pain since yesterday. Pt states pain present last night and improved on its own. States pain back tonight x2-3 hours. Pt states history of ovarian cysts with previousrupture. Pt states has been having syncopal episodes per pt's significant other, approximately 7 times this evening. documented in this encounter Miscellaneous Notes * ED Procedure Note - Varun Guzman MD - 02/02/2020 3:53 AM CDT Associated Order(s): ECG 12 lead Procedure ECG 12 lead Date/Time: 02/02/2020 3:53 AM Performed by: Varun Guzman MD Authorized by: Varun Guzman MD Rate: ECG rate: 69 ECG rate assessment: normal Rhythm: Rhythm: sinus rhythm Ectopy: Ectopy: none QRS: QRS axis: Normal QRS intervals: Normal Conduction: Conduction: normal ST segments: ST segments: Normal T waves: T waves: inverted Inverted: III Previous ECG: Previous ECG: Unavailable Interpretation: Interpretation: non-specific Recommended Follow-up: Recommended follow up: further workup in the ED Varun Guzman MD 02/02/20 0354 documented in this encounter Plan of Treatment Not on file documented as of this encounter Procedures Procedure Name Priority Date/Time Associated Diagnosis Comments ECG 12-LEAD STAT 02/02/2020 3:53 AM CDT POCT HCG, URINE Routine 02/02/2020 3:40 AM CDT URINALYSIS AND REFLEX TO MICROSCOPIC AND CULTURE STAT 02/02/2020 3:33 AM CDT URINALYSIS, MICROSCOPIC ONLY STAT 02/02/2020 3:33 AM CDT DIFFERENTIAL AUTO STAT 02/02/2020 1:4 4 AM CDT CBC WITH AUTO DIFFERENTIAL STAT 02/02/2020 1:44 AM CDT TROPONIN I STAT 02/02/2020 1:44 AM CDT BASIC METABOLIC PANEL STAT 02/02/2020 1:44 AM CDT documented in this encounter Results * ECG 12-LEAD (02/02/2020 3:53 AM CDT) Narrative [facility] - 02/02/2020 3:53 AM CDT Varun Guzman MD ? 02/02/2020 ??3:54 AM ECG 12 lead Date/Time: 02/02/2020 3:53 AM Performed by: Varun Guzman MD Authorized by: Varun Guzman MD Rate: ??ECG rate: ??69 ??ECG rate assessment: normal ?? Rhythm: ??Rhythm: sinus rhythm ?? Ectopy: ??Ectopy: none ?? QRS: ??QRS axis: ??Normal ??QRS intervals: ??Normal Conduction: ??Conduction: normal ?? ST segments: ??ST segments: ??Normal T waves: ??T waves: inverted ?Inverted: ??III Previous ECG: ??Previous ECG: ??Unavailable Interpretation: ??Interpretation: non-specific ?? Recommended Follow-up: ??Recommended follow up: further workup in the ED ?? Procedure Note Varun Guzman MD - 02/02/2020 3:53 AM CDT Procedure ECG 12 lead Date/Time: 02/02/2020 3:53 AM Performed by: Varun Guzman MD Authorized by: Varun Guzman MD Rate: ECG rate: 69 ECG rate assessment: normal Rhythm: Rhythm: sinus rhythm Ectopy: Ectopy: none QRS: QRS axis: Normal QRS intervals: Normal Conduction: Conduction: normal ST segments: ST segments: Normal T waves: T waves: inverted Inverted: III Previous ECG: Previous ECG: Unavailable Interpretation: Interpretation: non-specific Recommended Follow-up: Recommended follow up: further workup in the ED Varun Guzman MD 02/02/20 0354 Varun Guzman MD ECG ORDERABLES Final Result [facility] * POCT hCG, urine (02/02/2020 3:40 AM CDT) HCG, ur, POC Negative Lot Number [id number] QC Backgroud Clear Acceptable QC Control Line Acceptable Urine 02/02/2020 3:40 AM CDT Varun Guzman MD POINT OF CARE TE ST ORDERABLES Final Result * (ABNORMAL) Urinalysis, microscopic only (02/02/2020 3:33 AM CDT) WBC, ur 0-5 0 - 5 /HPF [facility] RBC, ur 0-2 0 - 2 /HPF [facility] Epithelial cells, squamous, ur 1-5 0 - 5 /HPF [facility] Bacteria, ur Trace(A) [facility] Mucous, ur Present(A) [facility] Culture Reflex Comment Reflex conditions for urine culture (WBC >10) not met. [facility] Urine 02/02/2020 3:33 AM CDT 02/02/2020 3:42 AM CDT Varun Guzman MD LAB URINE ORDERA BLES Final Result [facility] [place] [address] * (ABNORMAL) Urinalysis reflex to microscopic and culture Urine (02/02/2020 3:33 AM CDT) Color, ur Yellow Yellow [facility] Clarity, ur Cloudy(A) Clear [facility] Specific gravity, ur 1.023 1.010 - 1.025 [facility] pH, urine 6 [facility] Protein, ur ql 1+(A) Negative [facility] Glucose, ur ql Negative Negative [facility] Ketones, ur Negative Negative [facility] Bilirubin, ur Negative Negative [facility] Blood, ur Negative Negative [facility] Urobilinogen, ur 2.0(A) <2.0 mg/dL [facility] Nitrite, ur Negative Negative [facility] Leukocyte esterase, ur Negative Negative [facility] UA reflex comment Reflex to microscopic UA will be performed. [facility] Urine 02/02/2020 3:33 AM CDT 02/02/2020 3:42 AM CDT Narrative [facility] - 02/02/2020 3:51 AM CDT THE [facility] COLLECTION LOCATION IS [facility] ED2-22 Urine pH is affected by diet, medications, systemic acid-base disturbances, and renal tubular function. ??pH may affect urinary stone formation. ??For example, urine pH below 6.0 may help reduce the tendency for calcium phosphate stones and pH greater than 6.0 may reduce the tendency for uric acid stone formation. Source: [employer]. Last revised 07-24-2017 us Varun Guzman MD LAB MICROBIOLOGY - GENERAL ORDERABLES Final Result [facility] [place] [address] * Troponin I (02/02/2020 1:44 AM CDT) Troponin I <0.03 0.00 - 0.03 ng/mL [facility] Comment: Interpretive Data: Normal plasma Troponin I concentrations can reach 1 ng/mL in the first two weeks of life and slowly decrease to adult levels (<0.03 ng/mL) by the age of 3 months. > 3 months ??<0.03 ng/mL > or = 18 years Serial determinations are recommended for the diagnosis of myocardial infarction. ??Temporal rise and fall are consistent with myocardial infarction when at least one value is above the 99th percentile upper reference limit for Troponin assay. References: 1. Clin Chem 2013;59:1307-2280 2. Journal of the [place] [employer] 2012;60:1581-98 Current Interpretive Data Last Revised Date: 2018. Blood specimen (specimen) 02/02/2020 1:44 AM CDT 02/02/2020 2:01 AM CDT us Notinfile Unknown LAB BLOOD ORDERABLES Final Res ult [facility] [place] [address] * (ABNORMAL) Differential, auto (02/02/2020 1:44 AM CDT) Neutrophil abs 3.1 1.7 - 6.5 K/cumm [facility] Imm gran abs 0.0 0.0 - 0.1 K/cumm [facility] Lymphocyte abs 4.8(H) 0.8 - 3.3 K/cumm [facility] Monocyte abs 0.7 0.2 - 0.8 K/cumm [facility] Eosinophil abs 0.1 0.0 - 0.5 K/cumm [facility] Basophil abs 0.0 0.0 - 0.1 K/cumm [facility] Neutrophil pct 35.1 % [facility] Comment: Interpretive Data Percent cell count reference ranges are not reported, since discordance with absolute values may lead to misinterpretation of CBC data. Current Interpretive Data was last revised on 2017. Imm gran pct 0.1 % [facility] Comment: Interpretive Data Percent cell count reference ranges are not reported, since discordance with absolute values may lead to misinterpretation of CBC data. Current Interpretive Data was last revised on 2017. Lymphocyte pct 55.0 % [facility] Comment: Interpretive Data Percent cell count reference ranges are not reported, since discordance with absolute values may lead to misinterpretation of CBC data. Current Interpretive Data was last revised on 2017. Monocyte pct 8.4 % [facility] Comment: Interpretive Data Percent cell count reference ranges are not reported, since discordance with absolute values may lead to misinterpretation of CBC data. Current Interpretive Data was last revised on 2017. Eosinophil pct 1.1 % [facility] Comment: Interpretive Data Percent cell count reference ranges are not reported, since discordance with absolute values may lead to misinterpretation of CBC data. Current Interpretive Data was last revised on 2017. Basophil pct 0.3 % [facility] Comment: Interpretive Data Percent cell count reference ranges are not reported, since discordance with absolute values may lead to misinterpretation of CBC data. Current Interpretive Data was last revised on 2017. Blood specimen (specimen) 02/02/2020 1:44 AM CDT 02/02/2020 2:01 AM CDT Sanjuana ZAVALA LAB BLOOD ORDERABLES Final Result [facility] [place] [address] * Basic metabolic panel (02/02/2020 1:44 AM CDT) Sodium 141 135 - 145 mmol/L [facility] Potassium, pl 4.0 3.3 - 4.9 mmol/L [facility] Chloride 106 97 - 110 mmol/L [facility] CO2 25 22 - 32 mmol/L [facility] Anion gap 10 2 - 15 mmol/L [facility] BUN 9 8 - 25 mg/dL [facility] Creatinine 1.01 0.60 - 1.10 mg/dL [facility] Glucose 95 70 - 199 mg/dL [facility] Comment: Interpretive Data Fasting glucose >/= 126 mg/dl is diagnostic for diabetes. ?? Fasting is defined as no caloric intake for at least 8 hours. Fasting glucose between 100 mg/dl to 125 mg/dl is diagnostic of prediabetes. In a patient with classic symptoms of hyperglycemia or hyperglycemic crisis, a random glucose >/= 200 mg/dl is diagnostic for diabetes. In the absence of unequivocal hyperglycemia, results should be confirmed by repeat testing. The classification and Diagnosis of Diabetes Diabetes Care 2017;40 (Suppl. 1):S11. Current interpretive data was last revised 2017. Calcium 9.9 8.5 - 10.3 mg/dL [facility] Blood specimen (specimen) 02/02/2020 1:44 AM CDT 02/02/2020 2:01 AM CDT Narrative [facility] - 02/02/2020 2:26 AM CDT THE COLLECTION LOCATION IS Sanju[facility]AL[facility] LAB BLOOD ORDERABLES Final Result Performing Organization Address City/[facility] Co de Phone Number [facility] [place] [place] [address] * CBC with auto differential (02/02/2020 1:44 AM CDT) WBC 8.7 3.8 - 9.9 K/cumm [facility] Hgb 12.4 11.9 - 15.5 g/dL [facility] Hct 38.3 35.6 - 45.5 % [facility] Plt 267 150 - 400 K/cumm [facility] MPV 11.9 9.1 - 12.3 fL [facility] RBC 4.49 3.90 - 5.20 M/cumm [facility] MCV 85.3 81.3 - 96.4 fL [facility] MCH 27.6 27.1 - 33.3 pg [facility] MCHC 32.4 32.3 - 35.7 g/dL [facility] RDW CV 13.4 11.1 - 14.9 % [facility] RDW SD 41.7 35.7 - 48.1 fL [facility] NRBC abs 0.00 0.00 - 0.01 K/cumm [facility] Blood specimen (specimen) 02/02/2020 1:44 AM CDT 02/02/2020 2:01 AM CDT Narrative [facility] - 02/02/2020 2:06 AM CDT THE COLLECTION LOCATION IS Sanjuana ZAVALA LAB BLOOD ORDERABLES Final Result [facility] [place] [address] documented in this encounter Visit Diagnoses Diagnosis Pelvic pain- Primary Pelvic pain documented in this encounter Administered Medications Inactive Administered Medications - up to 3 most recent administrations Medication Order MAR Action Action Date Dose Rate Site ibuprofen (ADVIL,MOTRIN) tablet 800 mg 800 mg, oral, Once, On Fri02/01/20 at 2305, For 1 dose, Indications: PainIndications:Pain Given 02/01/2020 11:09 PM CDT 800 mg documented in this encounter Active and Recently Administered Medications Times are shown in CDT. Scheduled Medication Order 01/31/2020 02/01/2020 02/02/2020 ibuprofen (ADVIL,MOTRIN) tablet 800 mg (COMPLETED) 800 mg, oral, Once, On Fri02/01/20 at 2305, For 1 dose, Indications: Pain 2309 (Given - Provider: Jada Garcia, NEDA) Lactated Ringer's (LR) bolus 1,000 mL 1,000 mL, intravenous, at 1,000 mL/hr, Administer over 1 Hours, Once, On Fri02/02/20 at 0354, For 1 dose 0445 (Not Given - Provider: Liz Mortensen RN - Reason: Patient/family refused) documented in this encounter Orders Medications Ordered That Brenton ht Not Have Been Administered Count Last Ordered Date First Ordered Date Lactated Ringer's (LR) bolus 1,000 mL 1 ibuprofen (ADVIL,MOTRIN) tablet 800 mg 1 Lab Orders Without Results Count Last Ordered D ate First Ordered Date TROPONIN I 1 02/02/2020 Nursing Count Last Ordered Date First Orde red Date PROVIDE EQUIPMENT / SUPPLIES AT BEDSIDE 1 0 02/02/2020 NURSING COMMUNICATION 1 02/01/2020 Consult Count Last Ordered Date First Orde red Date IP CONSULT TO FRONT END SOFTWARE ENGINEER 1 02/02/2020 documented in this encounter Care Teams Communications Executive Relationship Specialty Start Date End Date Referring, Unknown, PCP - General 02/01/20 02/04/22 Referring, Unknown, Pediatrics 10/01/18 documented as of this encounter
--- OUTSIDE RECORDS SUMMARY | 2024-07-11 06:26 | XMS_ITS | Encounter Summary ---
Author Organization [facility] Address [address] [place] [address] Care Team Providers Care Manager Legal Name Role Phone Unavailable Primary Care Provider Unavailabl e Encounter Details Date Type Department Care Team (Late st Contact Info) Description 04/05/2013 5:05 PM CDT - 04/05/2013 6:30 PM CDT Hospital Encounter [facility] Pediculosis Social History Tobacco Use Types Packs/Day Years Used Date Smoking Tobacco: Never Assessed Comments Unknown Sex and Gender Information Value Date Recorded Sex Assigned at Not on file Legal Sex Female 5:18 AM BIT AND SHANK DEPARTMENT SUPERVISOR Gender Identity Not on file Sexual Orientation Not on file documented as of this encounter Last Filed Vital Signs Vital Sign Reading Time Taken Comments Blood Pressure 145/82 04/05/2013 5:17 PM CDT Pulse 86 04/05/2013 5:17 PM CDT Temperature 36.8 ??C (98.3 ??F) 04/05/2013 5:17 PM CD T Respiratory Rate - - Oxygen Saturation 99% 04/05/2013 5:17 PM CDT Inhaled Oxygen Concentration - - Weight 73.7 kg (162 lb 7.7 oz) 04/05/2013 5:17 P M CDT Height 160 cm (5' 3 ) 04/05/2013 5:17 PM CDT Body Mass Index 28.78 04/05/2013 5:17 PM CDT Body Mass Index Percentile 97.30% 04/05/2013 5:1 7 PM CDT Growth Chart: CDC (Girls, 2- 20 Years) documented in this encounter Plan of Treatment Not on file documented as of this encounter Visit Diagnoses Diagnosis Pediculosis Unspecified pediculosis documented in this encounter
--- OUTSIDE RECORDS SUMMARY | 2024-07-11 06:26 | XMS_ITS | Encounter Summary ---
Author Organization [facility] Care Team Providers Care Electrical Engineering Drafting Officer Name Role Phone Unavailable Primary Care Provider Unavailabl e Encounter Details Date Type Department Care Team (Late st Contact Info) Description 05/16/2014 7:09 PM DUPLICATOR PUNCH SET UP OPERATOR - 05/16/2014 9:19 PM DUPLICATOR PUNCH SET UP OPERATOR Hospital Encounter [facility] [place] [address] [place] [address] Tietze's disease; Cough; Asthma Social History Tobacco Use Types Packs/Day Years Used Date Smoking Tobacco: Never Assessed Comments Unknown Sex and Gender Information Value Date Recorded Sex Assigned at Not on file Legal Sex Female 5:18 AM DUPLICATOR PUNCH SET UP OPERATOR Gender Identity Not on file Sexual Orientation Not on file documented as of this encounter Plan of Treatment Not on file documented as of this encounter 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
--- OUTSIDE RECORDS SUMMARY | 2024-07-11 06:26 | XMS_ITS | Encounter Summary ---
Author Organization [facility] Healthcare Address [address] [place] [address] Care Team Providers Care Nuclear Design Engineer Name Role Phone Unavailable Primary Care Provider Unavailabl e Encounter Details Date Type Department Care Team (Late st Contact Info) Description 07/18/2018 8:30 PM SOUND EFFECTS MANAGER - 07/19/2018 2:34 AM SOUND EFFECTS MANAGER Hospital Encounter [facility] Amber Cortés MD [facility] [address] [place], [place] [id number] Cyst of right ovary Social History Tobacco Use Types Packs/Day Years Used Date Smoking Tobacco: Never Assessed Comments Unknown Sex and Gender Information Value Date Recorded Sex Assigned at Not on file Legal Sex Female 5:18 AM SOUND EFFECTS MANAGER Gender Identity Not on file Sexual Orientation Not on file documented as of this encounter Last Filed Vital Signs Vital Sign Reading Time Taken Comments Blood Pressure 125/64 07/18/2018 8:37 PM SOUND EFFECTS MANAGER Pulse 87 07/18/2018 8:37 PM SOUND EFFECTS MANAGER Temperature 36.6 ??C (97.9 ??F) 07/18/2018 8:37 PM CS T Respiratory Rate - - Oxygen Saturation 99% 07/18/2018 8:37 PM SOUND EFFECTS MANAGER Inhaled Oxygen Concentration - - Weight 106.6 kg (235 lb) 07/18/2018 8:37 PM SOUND EFFECTS MANAGER Height 167.6 cm (5' 6 ) 07/18/2018 8:37 PM SOUND EFFECTS MANAGER Body Mass Index 37.93 07/18/2018 8:37 PM SOUND EFFECTS MANAGER Body Mass Index Percentile 98.69% 07/18/2018 8:3 7 PM SOUND EFFECTS MANAGER Growth Chart: CDC (Girls, 2- 20 Years) documented in this encounter Plan of Treatment Not on file documented as of this encounter Procedures Procedure Name Priority Date/Time Associated Diagnosis Comments VAGINAL PATHOGEN SCREEN Routine 07/19/2018 2:20 AM SOUND EFFECTS MANAGER CT ABDOMEN PELVIS W CONTRAST Routine 07/19/2018 12:01 AM SOUND EFFECTS MANAGER URINALYSIS AND REFLEX TO MICROSCOPIC AND CULTURE Routine 07/18/2018 10:35 PM SOUND EFFECTS MANAGER N. GONORRHOEAE DNA PROBE GENITAL OR URINE Routine 07/18/2018 10:35 PM SOUND EFFECTS MANAGER CBC WITH AUTO DIFFERENTIAL Routine 07/18/2018 9:51 PM SOUND EFFECTS MANAGER LIPASE Routine 07/18/2018 9:51 PM SOUND EFFECTS MANAGER COMPREHENSIVE METABOLIC PANEL Routine 07/18/2018 9:51 PM SOUND EFFECTS MANAGER documented in this encounter Results * VAGINAL PATHOGEN SCREEN (07/19/2018 2:20 AM SOUND EFFECTS MANAGER) Pathologist [facility] Trichomonas vaginalis NEGATIVE NEGATIVE 07/19/2018 3:45 AM SOUND EFFECTS MANAGER [facility] [employer] [email or web address] HISTORICAL RESULTS GARDNERELLA SCREEN POSITIVE NEGATIVE 2018 3:45 AM SOUND EFFECTS MANAGER [facility] HISTORICAL RESULTS Jessica species DNA NEGATIVE NEGATIVE 07/19/2018 3:45 AM SOUND EFFECTS MANAGER [facility] HISTORICAL RESULTS Comment: A positive result for Jessica, Gardnerella and/or Trichomonas means nucleic acid for Jessica species (C.albicans,C.glabrata,Ckefyr,C.krusei,C.parapsilosis, C.tropicalis),G.vaginalis and/or T.vaginalis,respectively, is present in the sample and indicates the patient has candidiasis, bacterial vaginosis, and/or trichomoniasis when consistent with clinical signs and symptoms. Simultaneous infections by more than one organism are common. Negative results, for Jessica, Gardnerella,or Trichomonas test suggest the patient does not have candidiasis,bacterial vaginosis and/or trichomoniasis, respectively, when consistent with clinical signs and symptoms. 07/19/2018 2:20 AM SOUND EFFECTS MANAGER 07/19/2018 2:39 AM SOUND EFFECTS MANAGER Narrative [facility] HISTORICAL RESULTS - 07/19/2018 3:45 AM SOUND EFFECTS MANAGER Collected By cd us Cori L. Moo MD LAB BLOOD ORDERABLES Final Resu lt [facility] HISTORICAL RESULTS * CT Abdomen Pelvis W Contrast (07/19/2018 12:01 AM SOUND EFFECTS MANAGER) Anatomical Region Laterality Modality Body N/A Computed Tomogra phy 07/19/2018 12:0 1 AM SOUND EFFECTS MANAGER Impressions 07/19/2018 2:10 AM SOUND EFFECTS MANAGER ??The appendix is difficult to identify but is thought to be normal, described above. ??No obvious inflammatory changes at the right lower quadrant of the abdomen. Cystic structures at the right adnexal region with free pelvic fluid. ??Given the patient's clinical history, pelvic sonogram could be helpful for further evaluation. THIS IS AN ELECTRONICALLY VERIFIED FINAL REPORT 07/19/2018 2:07 AM - Electronically signed by Eugenia Bhat M.D. JS D: ??07/19/2018 2:07 AM T: Report ID: [id number] Reading Location: ??[id number] [EOD] Narrative 07/19/2018 2:10 AM SOUND EFFECTS MANAGER EXAM DESCRIPTION: ??CT Abd/Pelvis W IV Contrast REASON FOR STUDY: ??Evaluate for appendicitis, ovarian cyst Right lower quadrant and umbilical abdominal pain with nausea for 4 days TECHNIQUE: ??CT scan of the abdomen and pelvis performed with intravenous and without oral contrast using helical scanning technique with dynamic intravenous contrast injection. Reconstructed coronal and sagittal MPR images reviewed. All images stored on PACS. Automated exposure control was used as a dose optimization technique for this examination. CONTRAST TYPE/DOSE: ??100 mL of Optiray 350 contrast were intravenously injected at the right forearm. COMPARISON: ??None available FINDINGS: LOWER CHEST: No significant pulmonary abnormalities. No effusion. LIVER: Normal size. ??No identified cystic or solid masses. GALLBLADDER: Contracted gallbladder. ??No stones identified. No wall thickening or inflammatory changes. BILE DUCTS: No intrahepatic or extrahepatic ductal dilatation. SPLEEN: Normal size. ??No focal lesions. PANCREAS: No identified cystic or solid masses. No significant calcifications. No adjacent inflammation or peripancreatic fluid collections. Pancreatic duct not dilated. ADRENALS: Normal. KIDNEYS/URINARY TRACT: No identified significant cystic or solid masses; tiny hypodensity at the right renal midpole posteriorly is too small to characterize. ??No visible stones. ??No hydronephrosis or hydroureter. Symmetric enhancement. Urinary bladder is unremarkable. GI: No dilated bowel loops. No obvious wall thickening. ??Normal appendix; what is thought to be the appendix coils posteriorly at the right lower quadrant region at axial image 101. ??No significant diverticular disease. PERITONEUM: No free intraperitoneal gas. ??Small dependent free pelvic fluid. RETROPERITONEUM: No mass or adenopathy. REPRODUCTIVE: Fluid within the endometrial cavity versus endometrial thickening. ??Unremarkable left adnexal region. ??Several hypodense foci at the right adnexal region could be physiologic, nonspecific. ??Given clinical history of pain, sonogram may be helpful. VASCULATURE: No abdominal aortic aneurysm. MUSCULOSKELETAL: No acute fracture. OTHER: No other abnormality. Procedure Note Provider, MD Edwardo - 11/29/2020 EXAM DESCRIPTION: CT Abd/Pelvis W IV Contrast REASON FOR STUDY: Evaluate for appendicitis, ovarian cyst Right lower quadrant and umbilical abdominal pain with nausea for 4 days TECHNIQUE: CT scan of the abdomen and pelvis performed with intravenousand without oral contrast using helical scanning technique with dynamic intravenous contrast injection. Reconstructed coronal and sagittal MPRimages reviewed. All images stored on PACS. Automated exposure control was used as a dose optimization technique forthis examination. CONTRAST TYPE/DOSE: 100 mL of Optiray 350 contrast were intravenously injected at the right forearm. COMPARISON: None available FINDINGS: LOWER CHEST: No significant pulmonary abnormalities. No effusion. LIVER: Normal size. No identified cystic or solid masses. GALLBLADDER: Contracted gallbladder. No stones identified. No wallthickening or inflammatory changes. BILE DUCTS: No intrahepatic or extrahepatic ductal dilatation. SPLEEN: Normal size. No focal lesions. PANCREAS: No identified cystic or solid masses. No significantcalcifications. No adjacent inflammation or peripancreatic fluid collections. Pancreaticduct not dilated. ADRENALS: Normal. KIDNEYS/URINARY TRACT: No identified significant cystic or solid masses;tiny hypodensity at the right renal midpole posteriorly is too small to characterize. No visible stones. No hydronephrosis or hydroureter.Symmetric enhancement. Urinary bladder is unremarkable. GI: No dilated bowel loops. No obvious wall thickening. Normal appendix;what is thought to be the appendix coils posteriorly at the right lowerquadrant region at axial image 101. No significant diverticular disease. PERITONEUM: No free intraperitoneal gas. Small dependent free pelvicfluid. RETROPERITONEUM: No mass or adenopathy. REPRODUCTIVE: Fluid within the endometrial cavity versus endometrial thickening. Unremarkable left adnexal region. Several hypodense foci atthe right adnexal region could be physiologic, nonspecific. Given clinical history of pain, sonogram may be helpful. VASCULATURE: No abdominal aortic aneurysm. MUSCULOSKELETAL: No acute fracture. OTHER: No other abnormality. IMPRESSION: The appendix is difficult to identify but is thought to be normal, described above. No obvious inflammatory changes at the rightlower quadrant of the abdomen. Cystic structures at the right adnexal region with free pelvic fluid.Given the patient's clinical history, pelvic sonogram could be helpful forfurther evaluation. THIS IS AN ELECTRONICALLY VERIFIED FINAL REPORT 07/19/2018 2:07 AM - Electronically signed by Eugenia Bhat M.D. JS T: Report ID: [id number] Reading Location: [place] [address] [EOD] us Amber Cortés MD IMG CT PROCEDURES Final Result * (ABNORMAL) Urinalysis reflex to microscopic and culture (07/18/2018 10:35 PM SOUND EFFECTS MANAGER) Ur Collection Type CLEAN CATCH Ur Culture Indicated? C&S NOT INDICATED 07/18/2018 11:11 PM [facility] HISTOR[facility] RESULTS Urine Color YELLOW YELLOW Urine Clarity CLEAR CLEAR Urine Glucose (UA) NORMAL NORMAL mg/dL 07/18/2018 11:11 PM [facility] HISTORICAL RESULTS Urine Bilirubin NEGATIVE NEGATIVE mg/dl Urine Ketones NEGATIVE NEGATIVE mg/dL Ur Specific [place] 1.020 1.005 - 1.025 Urine Blood NEGATIVE NEGATIVE mg/dl Urine pH 6.0 5.0 - 8.0 Urine Protein NEGATIVE NEGATIVE mg/dL Urine Urobilinogen 2(H) NORMAL mg/dL Urine Nitrite NEGATIVE NEGATIVE Ur Leukocyte Esterase NEGATIVE NEGATIVE Donna/ul Ur Microscopic Review Indicated or Ordered Urine RBC 1 0 - 2 /HPF Urine WBC <1 0 - 2 /HPF Urine Mucus RARE /LPF Ur Squamous Epith Cells Rare /HPF 07/18/2018 10:3 5 PM SOUND EFFECTS MANAGER 07/18/2018 10:44 PM SOUND EFFECTS MANAGER Narrative [facility] HISTORICAL RESULTS - 07/18/2018 11:11 PM SOUND EFFECTS MANAGER Indication(s) for ordering ? Pain-pelv/flank/suprapubc Amber Cortés MD LAB MICROBIOLOGY - GENERAL SHERRI GIL Final Result [facility] HISTORICAL RESULTS * N. gonorrhoeae DNA probe, genital or urine (07/18/2018 10:35 PM SOUND EFFECTS MANAGER) C. trachomatis RNA CT NOT DETECTED Comment:Chlamydia trachomati s is not detected. C. trachomatis RNA NG NOT DETECTED Comment:Neisseria gonorrhoea e is not detected. Chlamydia/GC Source URINE Comment: Xpert CT/NG Assay performance has not been evaluated in female patients <14 years of age and male patients <17 years of age. Xpert CT/NG Assay performance has not been evaluated in patients with a history of hysterectomy. For patients <=14 years old The GeneXpert Chlamydia trachomatis/Neisseria gonorrhoeae Amplified DNA Assay should not be used for the evaluation of suspected sexual abuse or for other medico-legal indications. Additional testing is recommended in any circumstance when false positive or false negative results could lead to adverse medical, social or psychological consequences. 07/18/2018 10:3 5 PM SOUND EFFECTS MANAGER 07/19/2018 2:31 AM SOUND EFFECTS MANAGER Narrative [facility] HISTORICAL RESULTS - 07/19/2018 2:33 AM SOUND EFFECTS MANAGER Urine collection method First catch lessthan 50ml ?? Collected By mb ?? Amber Cortés MD LAB MICROBIOLOGY - GENERAL ORDE [facility]A [facility] Final Result [facility] HISTORICAL RESULTS * Lipase (07/18/2018 9:51 PM SOUND EFFECTS MANAGER) Lipase 36 13 - 60 U/L 07/18/2018 9:51 PM SOUND EFFECTS MANAGER 07/18/2018 9:54 PM SOUND EFFECTS MANAGER Amber Cortés MD LAB BLOOD ORDERABLES Final Resu lt [facility] HISTORICAL RESULTS * (ABNORMAL) Comprehensive metabolic panel (07/18/2018 9:51 PM SOUND EFFECTS MANAGER) Sodium 138 135 - 145 mmol/L Potassium 4.0 3.3 - 5.1 mmol/L 07/18/2018 10:24 PM SOUND EFFECTS MANAGER [facility] HISTORICAL RESULTS Chloride 105 96 - 108 mmol/L Carbon Dioxide 22 22 - 32 mmol/L Anion Gap 11 7 - 16 Glucose 115(H) 70 - 100 mg/dL BUN 11 5 - 18 mg/dL Creatinine 0.8 0.5 - 1.1 mg/dL Comment: NOTE: Estimated GFR (Cockroft-Gault) will NOT be calculated unless patient Height and Weight were entered. Also, Kidney Disease Stage (GFR) and Estimated GFR (Cockroft-Gault) will NOT be calculated if Creatinine result is <0.2. Kidney Disease Stage TNP mL/MIN Est GFR (Cockcroft-G) TNP ml/MIN Calcium 9.7 8.4 - 10.2 mg/dL Total Protein 7.7 6.4 - 8.3 g/dL Albumin 4.4 3.2 - 4.5 g/dL Globulin 3.3 2.3 - 3.5 gm/dL Albumin/Globulin Ratio 1.3 1.1 - 1.8 Total Bilirubin < 0.2 0.0 - 1.2 mg/dL AST 19 0 - 32 U/L ALT 19 0 - 33 U/L Alkaline Phosphatase 63 45 - 87 U/L 07/18/2018 9:51 PM SOUND EFFECTS MANAGER 07/18/2018 9:54 PM SOUND EFFECTS MANAGER us Amber Cortés MD LAB BLOOD ORDERABLES Final Resu lt [facility] HISTORICAL RESULTS * (ABNORMAL) CBC with auto differential (07/18/2018 9:51 PM SOUND EFFECTS MANAGER) WBC 8.7 3.8 - 9.9 X10 3/ul RBC 4.18 3.90 - 5.20 x10 6/ul Hemoglobin 11.9 11.9 - 15.5 g/dL Hct 36.1 35.6 - 45.5 % MCV 86.4 81.3 - 96.4 fl MCH 28.5 27.1 - 33.3 pg MCHC 33.0 32.3 - 35.7 g/dl RDW 12.8 11.1 - 14.9 % Plt Count 259 150 - 400 x10 3/ul MPV 11.4 9.1 - 12.3 fl Neut % 47.4 % Immature Gran % 0.3 % 9 10:01 PM [facility] HISTORICAL RESULTS Lymph % 43.3 % [place] % 7.6 % Eos % 1.1 % Baso % 0.3 % Absolute Neuts (auto) 4.1 1.7 - 6.5 x10 3/ul Immature Gran # 0.0 0.0 - 0.1 x10 3/ul Absolute Lymphs (auto) 3.8(H) 0.8 - 3.3 x10 3/ul Absolute Monos (auto) 0.7 0.2 - 0.8 x10 3/ul Absolute Eos (auto) 0.1 0.0 - 0.5 x10 3/ul Absolute Basos (auto) 0.0 0.0 - 0.1 x10 3/ul Nucleat RBC Rel Count 0.0 #/100WBC Absolute Nucleated RBC 0.00 0.00 - 0.01 x10 3/ul Absolute Neutrophils 4100 200 - 8000 /ul 07/18/2018 9:51 PM SOUND EFFECTS MANAGER 07/18/2018 9:54 PM SOUND EFFECTS MANAGER us Amber Cortés MD LAB BLOOD ORDERABLES Final Resu lt [facility] HISTORICAL RESULTS documented in this encounter Visit Diagnoses Diagnosis Cyst of right ovary Other and unspecified ovarian cyst documented in this encounter
--- OUTSIDE RECORDS SUMMARY | 2024-07-11 06:26 | XMS_ITS | Encounter Summary ---
Author Organization [facility] Address [address] [place] [address] Phone Care Team Providers Care Circular Sawyer Helper Name Role Phone Unavailable Primary Care Provider Unavailabl e Reason for Visit * Reason Comments Runny Nose Sore Throat Encounter Details Date Type Department Care Team ([facility] Contact Info) Description 04/13/2024 10:25 AM CDT - 04/13/2024 11:51 AM CDT Emergency [facility] Emergency [address] [place] [address] Discharge Disposition: LWBS Social History Tobacco Use Types Packs/Day Years Used Date Smoking Tobacco: Never Assessed Comments Unknown Sex and Gender Information Value Date Recorded Sex Assigned at Not on file Legal Sex Female 11:42 AM SUPERVISOR POLISHING Gender Identity Not on file Sexual Orientation Not on file documented as of this encounter Last Filed Vital Signs Vital Sign Reading Time Taken Comments Blood Pressure 127/92 04/13/2024 10:47 AM CDT Pulse 73 04/13/2024 10:45 AM CDT Temperature 36.6 ??C (97.8 ??F) 04/13/2024 10:45 AM C DT Respiratory Rate 16 04/13/2024 10:45 AM CDT Oxygen Saturation 100% 04/13/2024 10:45 AM CDT Inhaled Oxygen Concentration - - Weight 108.9 kg (240 lb) 04/13/2024 10:45 AM CDT Height 170.2 cm (5' 7 ) 04/13/2024 10:45 AM CDT Body Mass Index 37.59 04/13/2024 10:45 AM CDT documented in this encounter ED Notes * Heather Talbot RN - 04/13/2024 11:51 AM CDT Public Relations Account Executive called stating that pt has left. LWBS. * Yeni Cartwright RN - 04/13/2024 10:48 AM CDT Patient ambulatory to ED with c/o runny nose, sore throat, and feeling like she is breathing through a pin hole. Patient states hx of asthmas as a child, but not adult. Patient VSS. Swabs obtained intriage. documented in this encounter Plan of Treatment Not on file documented as of this encounter Procedures Procedure Name Priority Date/Time Associated Diagnosis Comments GROUP A STREP BY PCR STAT 04/13/2024 10:50 AM CDT RSV,SARS-COV-2,INFL UENZA A&B BY PCR STAT 04/13/2024 10:50 AM CDT documented in this encounter Results * GROUP A STREP BY PCR (04/13/2024 10:50 AM CDT) [facility] GROUP A STREP BY PCR NOT DETECTED NOT DETECTED 04/13/2024 11:50 AM CDT [facility] Swab SPECIMEN FROM THROAT / Unknown Non-Phlebotomy Collection / Unknown 04/13/2024 10:50 AM CDT 04/13/2024 11:17 AM CDT Ulysses García [facility] MICROBIOLOGY - GENERA L ORDERABLES Final Result [facility] [address] [place] [address] * RSV,SARS-COV-2,INFLUENZA A&B BY PCR (04/13/2024 10:50 AM CDT) Pathologist [facility] FLU A Negative Negative, Error 04/13/2024 12:02 PM CDT [facility] FLU B Negative Negative 04/13/2024 12:02 PM CDT [facility] RESP SYNC VIRUS Negative Negative 12:02 PM CDT [facility] SARSCOV2 NOT DETECTED (Reference Range for this test is Not Detected) 04/13/2024 12:02 PM CDT [facility] Comment:This test was perfor med by a Reverse Lifeguard PCR Method. Swab NASOPHARYNGEAL SWAB / Unknown Non-Phlebotomy Collection / Unknown 04/13/2024 10:50 AM CDT 04/13/2024 11:17 AM CDT Narrative [facility] - 04/13/2024 12:02 PM CDT This test has not been FDA cleared or approved; the test has been authorized by FDA under an Emergency Use Authorization (EUA) for use by laboratories certified under the CLIA that meet the requirements to perform moderate, high or waived complexity tests. Authorized Fact Sheets about this test for providers and patients are available at: https://www.fda.gov/medical-devices/cvwzmvbye-zntrmdkjto-quzshaz-devices/emergen -us e-authorizations Ulysses García [facility] MICROBIOLOGY - GENERA L ORDERABLES Final Result [facility] [address] [place] [address] documented in this encounter Visit Diagnoses Not on filedocumented in this encounter Additional Health Concerns Infection Onset Date Last Indicated Resolved Time COVID - 19 04/13/2024 04/13/2024 04/13/2024 12:0 2 PM CDT documented as of this encounter
--- OUTSIDE RECORDS SUMMARY | 2024-07-11 06:26 | XMS_ITS | Encounter Summary ---
Author Organization [facility] Address [address] [place] [id number] Care Team Providers Care Forestry Technical Officer Name Role Phone Unavailable Primary Care Provider Unavailabl e Encounter Details Date Type Department Care Team (Late st Contact Info) Description 07/23/2021 Lab Requisition [facility] Community Testing [facility] [address] [place] [address] Rudi Diaz MD [address] [place] [address] [place] [address] Social History Tobacco Use Types Packs/Day Years Used Date Smoking Tobacco: Never Assessed Comments Unknown Sex and Gender Information Value Date Recorded Sex Assigned at Not on file Legal Sex Female 11:42 AM TECHNICAL PUBLICATIONS WRITER Gender Identity Not on file Sexual Orientation Not on file documented as of this encounter Plan of Treatment Not on file documented as of this encounter Procedures Procedure Name Priority Date/Time Associated Diagnosis Comments SARS-COV-2 PCR [facility] ONLY Routine 07/23/2021 2:03 PM TECHNICAL PUBLICATIONS WRITER documented in this encounter Visit Diagnoses Not on filedocumented in this encounter
--- OUTSIDE RECORDS SUMMARY | 2024-07-11 06:26 | XMS_ITS | Encounter Summary ---
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
--- OUTSIDE RECORDS SUMMARY | 2024-07-11 06:26 | XMS_ITS | Clinical Summary ---
Author Organization [facility] Care Team Providers Care Compliance Project Manager Name Role Phone Unavailable Primary Care Provider Unavailabl e Allergies Active Allergy Reactions Criticality Noted Date Comments Acetaminophen Itching 04/13/2024 Medications No known medications Encounters Date Type Department Care Team Description 04/13/2024 10:25 AM CDT - 04/13/2024 11:51 AM CDT Emergency [facility] [address] [place] [address] Discharge Disposition: LWBS 04/13/2024 Travel from Last 3 Months Social History Tobacco Use Types Packs/Day Years Used Date Smoking Tobacco: Never Assessed Comments Unknown Sex and Gender Information Value Date Recorded Sex Assigned at Not on file 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 Gender Identity Not on file Sexual Orientation Not on file Last Filed Vital Signs Vital Sign Reading [...] Mass Index 37.59 04/13/2024 10:45 AM CDT Plan of Treatment Health Maintenance Due Date Last Done Comments Hepatitis C Virus (HCV) Screening 2000 Meningococcal B Immunization (1 of 2 - Standard) 2016 Pap Smear 2021 Influenza Immunization (#1) 2024 12/0 10/2012, 03/30/2012, 06/12/2004 SARS-COV-2 Immunization ( season) 2024 Respiratory Syncytial Virus (RSV) Immunization (Adult) (1 - 1-dose 75+ series) 12/04/2075 Hepatitis B Immunization Completed 001, 02/04/2001, 2000 Pneumococcal Immunization Combined Aged Out 01/13/2002, 06/11/2001, 04/09/2001, Additional history exists No longer eligible based on patient's age to complete this topic DTaP/Tdap/Td Immunization Discontinued 2010, 12/11/2004, 04/13/2002, Additional history exists TdaP Immunization Completed 02/28/2011 Human Papillomavirus (HPV) Immunization Completed 06/16/2013, 03/30/2012, 12/24/2011 Meningococcal Immunization (ACWY) Completed 10/09/2018, 12/24/2011 Rotavirus Immunization Aged Out No lo nger eligible based on patient's age to complete this topic Procedures Procedure Name Priority Date/Time Associated Diagnosis Comments GROUP A STREP BY PCR STAT 04/13/2024 10:50 AM CDT RSV,SARS-COV-2,INFL UENZA A&B BY PCR STAT 04/13/2024 10:50 AM CDT from Last 3 Months Results * GROUP A STREP BY PCR (04/13/2024 10:50 AM CDT) GROUP A STREP BY PCR NOT DETECTED NOT DETECTED 04/13/2024 11:50 AM CDT [facility] Swab SPECIMEN FROM THROAT / Unknown Non-Phlebotomy Collection / Unknown 04/13/2024 10:50 AM CDT 04/13/2024 11:17 AM CDT Ulysses García PAC MICROBIOLOGY - GENERA L ORDERABLES Final Result [facility] [place] [address] * RSV,SARS-COV-2,INFLUENZA A&B BY PCR (04/13/2024 10:50 AM CDT) FLU A Negative Negative, Error 04/13/2024 12:02 PM CDT [facility] FLU B Negative Negative 04/13/2024 12:02 PM CDT [facility] RESP SYNC VIRUS Negative Negative 12:02 PM CDT [facility] SARSCOV2 NOT DETECTED (Reference Range for this test is Not Detected) 04/13/2024 12:02 PM CDT [facility] Comment:This test was perfor med by a Reverse Professor Of Visual Arts PCR Method. Swab NASOPHARYNGEAL SWAB / Unknown Non-Phlebotomy Collection / Unknown 04/13/2024 10:50 AM CDT 04/13/2024 11:17 AM CDT Narrative [facility] - 04/13/2024 12:02 PM CDT This test has not been FDA cleared or approved; the test has been authorized by FDA under an Emergency Use Authorization (EUA) for use by laboratories certified under the CLIA that meet the requirements to perform moderate, high or waived complexity tests. Authorized Fact Sheets about this test for providers and patients are available at: https://www.fda.gov/medical-devices/jwidagxlm-qguayjmggg-vdsyipo-devices/emergen -us e-authorizations Ulysses García PAC MICROBIOLOGY - GENERA L ORDERABLES Final Result [facility] [place] [address] from Last 3 Months
--- OUTSIDE RECORDS SUMMARY | 2024-07-11 06:26 | XMS_ITS | Encounter Summary ---
Author Organization [facility] Healthcare Address [address] [place] [address] Care Team Providers Care Lien Searcher Name Role Phone Referring, Unknown Stephanie Pimentel MD Primary Care Provider Encounter Details Date Type Department Care Team (Late st Contact Info) Description 02/11/2022 6:30 PM CDT Lab [address] [id number] Indigestion; Nausea and vomiting, unspecified vomiting type; Iron deficiency anemia due to chronic blood loss Social History Tobacco Use Types Packs/Day Years Used Date Smoking Tobacco: Never Smokeless Tobacco: Never Comments:vape Alcohol Use Standard Drinks/Week Comments Never 0 (1 standard drink = 0.6 oz pur e alcohol) AUDIT-C Answer Date Recorded Q1: How often do you have a drink containing alcohol? 4 or more times a week 02/11/2022 Q2: How many drinks containi ng alcohol do you have on a typical day when you are drinking? 1 or 2 Q3: How often do you have si x or more drinks on one occasion? 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 Gender Identity Not on file Sexual Orientation Not on file documented as of this encounter Plan of Treatment Not on file documented as of this encounter Procedures Procedure Name Priority Date/Time Associated Diagnosis Comments EGFR Routine 02/11/2022 11:34 AM CDT Indigestion Nausea and vomiting, unspecified vomiting type DIFFERENTIAL AUTO Routine 02/11/2022 11: 34 AM CDT Indigestion Nausea and vomiting, unspecified vomiting type Iron deficiency anemia due to chronic blood loss THYROID FUNCTION CASCADE Routine 02/11/2022 11:34 AM CDT Indigestion Nausea and vomiting, unspecified vomiting type IRON PROFILE W/ IBC Routine 02/11/2022 1 1:34 AM CDT Indigestion Nausea and vomiting, unspecified vomiting type Iron deficiency anemia due to chronic blood loss CBC WITH AUTO DIFFERENTIAL Routine 02/11/2022 11:34 AM CDT Indigestion Nausea and vomiting, unspecified vomiting type Iron deficiency anemia due to chronic blood loss CRP (ACUTE PHASE) Routine 02/11/2022 11: 34 AM CDT Indigestion Nausea and vomiting, unspecified vomiting type LIPASE Routine 02/11/2022 11:34 AM CDT Indigestion Nausea and vomiting, unspecified vomiting type COMPREHENSIVE METABOLIC PANEL Routine 02/11/2022 11:34 AM CDT Indigestion Nausea and vomiting, unspecified vomiting type documented in this encounter Results * eGFR (02/11/2022 11:34 AM CDT) [facility] eGFR 127 mL/min/1. 73 m2 [facility] Comment: Interpretive Data Reference Interval Normal ?>/= 90 mL/min/1.73m2 Mildly decreased* ? 60 - 89 mL/min/1.73m2 Mildly to moderately decreased ?45 - 59 mL/min/1.73m2 Moderately to severely decreased ??30 - 44 mL/min/1.73m2 Severely decreased ?15 - 29 mL/min/1.73m2 Kidney Failure ?< 15 ??mL/min/1.73m2 *Relative to young adult level Estimated glomerular filtration rate is determined by the 2020 CKD-EPI equation recommended by the National Kidney Foundation (A Unifying Approach to GFR Estimation: Recommendations of the NKF-ASK Task Force on Reassessing the Inclusion of Race in Diagnosing Kidney Disease, JASN 202). The CKD-EPI equation should not be used for patients with unstable renal function and has not been validated in children and those over 70. Current interpretive data was last reviewed 2021. Blood 02/11/2022 11:3 4 AM CDT 02/11/2022 6:50 PM CDT Stephanie Miranda MD LAB BLOOD ORDERABLES F inal Result [facility] [address] Department [place] [address] * Differential, auto (02/11/2022 11:34 AM CDT) Neutrophil abs 3.7 1.7 - 6.5 K[facility] gran abs 0.0 0.0 - 0.1 K/cumm [facility] Lymphocyte abs 3.3 0.8 - 3.3 K/cumm [facility] Monocyte abs 0.7 0.2 - 0.8 K/cumm [facility] Eosinophil abs 0.1 0.0 - 0.5 K/cumm [facility] Basophil abs 0.0 0.0 - 0.1 K/cumm [facility] Neutrophil pct 47.0 % [facility] Comment: Interpretive Data Percent cell count reference ranges are not reported, since discordance with absolute values may lead to misinterpretation of CBC data. Current Interpretive Data was last revised on 2017. Imm gran pct 0.3 % [facility] Comment: Interpretive Data Percent cell count reference ranges are not reported, since discordance with absolute values may lead to misinterpretation of CBC data. Current Interpretive Data was last revised on 2017. Lymphocyte pct 42.2 % [facility] Comment: Interpretive Data Percent cell count reference ranges are not reported, since discordance with absolute values may lead to misinterpretation of CBC data. Current Interpretive Data was last revised on 2017. Monocyte pct 8.8 % [facility] Comment: Interpretive Data Percent cell count reference ranges are not reported, since discordance with absolute values may lead to misinterpretation of CBC data. Current Interpretive Data was last revised on 2017. Eosinophil pct 1.3 % [facility] Comment: Interpretive Data Percent cell count reference ranges are not reported, since discordance with absolute values may lead to misinterpretation of CBC data. Current Interpretive Data was last revised on 2017. Basophil pct 0.4 % [facility] Comment: Interpretive Data Percent cell count reference ranges are not reported, since discordance with absolute values may lead to misinterpretation of CBC data. Current Interpretive Data was last revised on 2017. Blood 02/11/2022 11:3 4 AM CDT 02/11/2022 6:37 PM CDT Stephanie Miranda MD LAB BLOOD ORDERABLES F inal Result [facility] [address] Department [place] [address] * (ABNORMAL) CBC with auto differential (02/11/2022 11:34 AM CDT) WBC 7.8 3.8 - 9.9 K/cumm [facility] Hgb 10.9(L) 11.9 - 15.5 g/dL [facility] Hct 36.9 35.6 - 45.5 % [facility] Plt 316 150 - 400 K/cumm [facility] MPV 12.7(H) 9.1 - 12.3 fL [facility] RBC 4.36 3.90 - 5.20 M/cumm [facility] MCV 84.6 81.3 - 96.4 fL [facility] MCH 25.0(L) 27.1 - 33.3 pg [facility] MCHC 29.5(L) 32.3 - 35.7 g/dL [facility] RDW CV 17.2(H) 11.1 - 14.9 % [facility] RDW SD 53.2(H) 35.7 - 48.1 fL [facility] NRBC abs 0.00 0.00 - 0.01 K/cumm [facility] Blood 02/11/2022 11:3 4 AM CDT 02/11/2022 6:37 PM CDT Stephanie Miranda MD LAB BLOOD ORDER[place] [address] Department [place] [address] * (ABNORMAL) Comprehensive metabolic panel (02/11/2022 11:34 AM CDT) Sodium 139 135 - 145 mmol/L [facility] Potassium, pl 4.5 3.3 - 4.9 mmol/L [facility] Chloride 105 97 - 110 mmol/L [facility] CO2 24 22 - 32 mmol/L [facility] Anion gap 10 2 - 15 mmol/L [facility] BUN 7(L) 8 - 25 mg/dL [facility] Creatinine 0.69 0.60 - 1.10 mg/dL [facility] Glucose 82 70 - 199 mg/dL [facility] Comment: Interpretive Data Fasting glucose >/= 126 [...] interpretive data was last revised 2017. Calcium 9.8 8.5 - 10.3 mg/dL [facility] Bilirubin, total 0.3 0.1 - 1.2 mg/dL [facility] Protein, pl 8.1 6.5 - 8.5 g/dL [facility] Albumin 4.3 3.5 - 5.0 g/dL [facility] Alk phos 77 40 - 130 Units/L [facility] ALT 16 7 - 45 Units/L [facility] AST 23 10 - 45 Units/L [facility] Blood 02/11/2022 11:3 4 AM CDT 02/11/2022 6:37 PM CDT Stephanie Miranda MD LAB BLOOD ORDERABLES F inal Result Performing Organization Address City/[facility]/ZIP Co de Phone Number STEVIE MILLIG[facility] [phone] [place] [address] * TSH reflex to free T4 (02/11/2022 11:34 AM CDT) TSH 1.21 0.30 - 4.20 mcIUnit/mL [facility] Blood 02/11/2022 11:3 4 AM CDT 02/11/2022 6:37 PM CDT Stephanie Miranda MD LAB BLOOD ORDERABLES F inal Result Performing Organization Address [facility] Co de Phone Number STEVIE MILLIGAN [address] [place] [address] * (ABNORMAL) Iron profile w/ IBC (02/11/2022 11:34 AM CDT) Iron 126 35 - 145 mcg/dl [facility] TIBC 451(H) 250 - 400 mcg/dL [facility] Transferrin saturation 28 20 - 50 % [facility] Blood 02/11/2022 11:3 4 AM CDT 02/11/2022 6:37 PM CDT Stephanie Miranda MD LAB BLOOD ORDERABLES F inal Result Performing Organization Address City/[facility] Co de Phone Number STEVIE MILLIGAN [address] [place] [address] * Lipase (02/11/2022 11:34 AM CDT) Lipase 22 10 - 99 Units/L [facility] Blood 02/11/2022 11:3 4 AM CDT 02/11/2022 6:37 PM CDT us Stephanie Miranda MD LAB BLOOD ORDERABLES F inal Result Performing Organization Address [facility] Co de Phone Number STEVIE MILLIGAN [phone] Department [place] [address] * CRP (acute phase) (02/11/2022 11:34 AM CDT) CRP 4.3 <=10.0 mg/L [facility] Blood 02/11/2022 11:3 4 AM CDT 02/11/2022 6:37 PM CDT us Stephanie Miranda MD LAB BLOOD ORDERABLES F inal Result Performing Organization Address [facility] de Phone Number STEVIE MILLIGAN [phone] Department [place] [address] documented in this encounter Visit Diagnoses Diagnosis Indigestion Dyspepsia and other specified disorders of function of stomach Nausea and vomiting, unspecified vomiting type Iron deficiency anemia due to chronic blood loss Iron deficiency anemia secondary to blood loss (chronic) documented in this encounter Care Teams Lien Searcher Relationship Specialty Start Date End Date Stephanie Miranda MD PCP - General Family Practice 02/05/22 Referring, MD [facility] 10/01/18 documented as of this encounter
--- OUTSIDE RECORDS SUMMARY | 2024-07-11 06:26 | XMS_ITS | Clinical Summary ---
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 [facility] RDW CV 13.0 11.1 - 14.9 % [facility] RDW SD 40.4 35.7 - 48.1 fL [facility] NRBC abs 0.00 0.00 - 0.01 K/cumm [facility] Blood (Blood, Venous) 06/12/2024 4:18 PM PAVING SUPERVISOR 06/12/2024 4:35 PM PAVING SUPERVISOR Zachariah Schuler MD LAB BLOOD ORDERABLES Final Re sult Performing Organization Address [facility] de Phone Number [facility] [place] [address] * aPTT (06/12/2024 4:18 PM PAVING SUPERVISOR) aPTT 31 28 - 38 sec Comment: Interpretive Data Heparin therapeutic range: 66.0 - 100.0 seconds. Range based on correlation with therapeutic heparin activity range of 0.3 - 0.7 Units/mL. Current interpretive data was last revised on 2023. Blood 06/12/2024 4:18 PM PAVING SUPERVISOR 06/12/2024 4:30 PM PAVING SUPERVISOR Zachariah Schuler MD LAB BLOOD ORDERABLES Final Re sult Performing Organization Address [facility] Co de Phone Number [facility] [place] [address] * Protime-INR (06/12/2024 4:18 PM PAVING SUPERVISOR) PT 11.8 9.7 - 13.0 sec INR 1.09 0.90 - 1.20 [facility] Comment: Interpretive data Oral anticoagulant therapeutic ranges: Venous thromboembolism prophylaxis or treatment: 2.0-3.0 CARDIOLOGY Standard range: 2.0-3.0 High-intensity range: 2.5-3.5 Refer to indication-specific guidelines for appropriate target ranges for prosthetic heart valve replacement. Current interpretive data was last revised on 2019. Blood 06/12/2024 4:18 PM PAVING SUPERVISOR 06/12/2024 4:30 PM PAVING SUPERVISOR Zachariah Schuler MD LAB BLOOD ORDERABLES Final Re sult Performing Organization Address [facility] de Phone Number [facility] [place] [place] [address] * Blood gas, venous (06/12/2024 4:18 PM PAVING SUPERVISOR) pH, Venous 7.40 7.32 - 7.43 PCO2, Venous 42 40 - 50 mmHg [facility] PO2, Venous 59 mmHg [facility] Comment: Interpretive Data No Reference Range Established Current Interpretive Data was last revised on 2017. HCO3 Venous, Calculated 27 20 - 30 mmol/L [facility] BE, venous 1 mmol/L [facility] Comment: Interpretive Data No Reference Range Established Current Interpretive Data was last revised on 2017. Blood 06/12/2024 4:18 PM PAVING SUPERVISOR 06/12/2024 4:30 PM PAVING SUPERVISOR Zachariah Schuler MD LAB BLOOD ORDERABLES Final Re sult Performing Organization Address [facility] Co de Phone Number [facility] [place] [employer] [place] [address] * Ethanol (06/12/2024 4:18 PM PAVING SUPERVISOR) Ethanol <10 <=10 mg/dL Comment: Interpretive Data Legal limit of intoxication > or = 80 mg/dL Levels > or = 400 mg/dL are potentially TOXIC. Current interpretive data was last revised on 2018. Blood 06/12/2024 4:18 PM PAVING SUPERVISOR 06/12/2024 4:35 PM PAVING SUPERVISOR Zachariah Schuler MD LAB BLOOD ORDERABLES Final Re sult [facility] [place] [address] * (ABNORMAL) Basic metabolic panel (06/12/2024 4:18 PM PAVING SUPERVISOR) Pathologist [facility] Sodium 140 135 - 145 mmol/L Potassium, pl 4.2 3.3 - 4.9 mmol/L [facility] Comment:Hemolyzed; Potassium value may be falsely elevated by as much as 0.3-0.5 mmol/L. Suggest redraw and reanalysis. Chloride 106 97 - 110 mmol/L [facility] CO2 21(L) 22 - 32 mmol/L [facility] Anion gap 13 2 - 15 mmol/L [facility] BUN 9 6 - 25 mg/dL [facility] Creatinine 0.68 0.60 - 1.10 mg/dL [facility] Glucose 88 70 - 199 mg/dL [facility] Comment: Interpretive Data Fasting glucose >/= [...] classification and Diagnosis of Diabetes Diabetes Care 202; 46: S19-S40. Current interpretive data was last revised 2022. Calcium 9.3 8.5 - 10.3 mg/dL [facility] Blood 06/12/2024 4:18 PM PAVING SUPERVISOR 06/12/2024 4:35 PM PAVING SUPERVISOR Zachariah Schuler MD LAB BLOOD ORDERABLES Final Re sult [facility] [place] [address] from Last 3 Months Insurance [facility] Care Teams Organic Lab Worker Relationship Specialty Start Date End Date Stephanie Miranda MD PCP - General Family Practice 02/05/22 ReferringZuly MD Pediatrics 10/01/18
--- OUTSIDE RECORDS SUMMARY | 2024-07-11 06:26 | XMS_ITS | Encounter Summary ---
Author Organization 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
--- OUTSIDE RECORDS SUMMARY | 2024-07-11 06:26 | XMS_ITS | Encounter Summary ---
Author Organization [facility] Healthcare Address [address] [place] [address] Care Team Providers Care Utility Helicopter Repairer Name Role Phone Unavailable Primary Care Provider Unavailabl e Encounter Details Date Type Department Care Team (Latest Contact Info) Description 07/19/2017 9:25 PM WINDOW GLAZIER - 07/20/2017 2:23 AM WINDOW GLAZIER Hospital Encounter [facility] ER Ronal Abbasi MD [address] [facility] [place] [address] Shortness of breath; Uncomplicated asthma Social History Tobacco Use Types Packs/Day Years Used Date Smoking Tobacco: Never Assessed Comments Unknown Sex and Gender Information Value Date Recorded Sex Assigned at Not on file Legal Sex Female 5:18 AM WINDOW GLAZIER Gender Identity Not on file Sexual Orientation Not on file documented as of this encounter Last Filed Vital Signs Vital Sign Reading Time Taken Comments Blood Pressure 159/73 07/19/2017 9:29 PM WINDOW GLAZIER Pulse 96 07/19/2017 9:29 PM WINDOW GLAZIER Temperature 36.8 ??C (98.3 ??F) 07/19/2017 9:29 PM CS T Respiratory Rate - - Oxygen Saturation 98% 07/19/2017 9:29 PM WINDOW GLAZIER Inhaled Oxygen Concentration - - Weight 94.3 kg (208 lb) 07/19/2017 9:29 PM WINDOW GLAZIER Height 167.6 cm (5' 6 ) 07/19/2017 9:29 PM WINDOW GLAZIER Body Mass Index 33.57 07/19/2017 9:29 PM WINDOW GLAZIER Body Mass Index Percentile 97.36% 07/19/2017 9:2 9 PM WINDOW GLAZIER Growth Chart: CDC (Girls, 2- 20 Years) documented in this encounter Plan of Treatment Not on file documented as of this encounter Procedures Procedure Name Priority Date/Time Associated Diagnosis Comments INFLUENZA A/B ANTIGENS, RAPID Routine 07/19/2017 9:57 PM WINDOW GLAZIER XR CHEST PA LATERAL 2 VIEWS Routine 07/19/2017 9:49 PM WINDOW GLAZIER documented in this encounter Results * Influenza A/B antigens, rapid (07/19/2017 9:57 PM WINDOW GLAZIER) Influenza A Ag NEGATIVE NEGATIVE 07/19/2017 11:01 PM WINDOW GLAZIER [facility] HISTORICAL RESULTS Influenza B Ag NEGATIVE NEGATIVE 07/19/2017 11:01 PM WINDOW GLAZIER [facility] HISTORICAL RESULTS Comment: A NEGATIVE RESULT DOES NOT ELIMINATE THE POSSIBILITY OF AN ?? INFLUENZA A OR B INFECTION. ??INADEQUATE SPECIMEN COLLECTION ?? OR IMPROPER SAMPLE HANDLING/TRANSPORT, OR LOW LEVELS OF ?? VIRAL SHEDDING MAY YIELD A FALSE NEGATIVE RESULT. 07/19/2017 9:57 PM WINDOW GLAZIER 07/19/2017 10:36 PM WINDOW GLAZIER Narrative [facility] HISTORICAL RESULTS - 07/19/2017 11:01 PM WINDOW GLAZIER Collected By us Deanna Trevizo [facility] [place] Final Result [facility] HISTORICAL RESULTS * XR Chest Pa Lateral 2 Views (07/19/2017 9:49 PM WINDOW GLAZIER) Anatomical Region Laterality Modality Body, Chest N/A Radiographic Cecilia ging 07/19/2017 9:49 PM WINDOW GLAZIER Impressions 07/19/2017 11:07 PM WINDOW GLAZIER ??Unremarkable chest radiographs. THIS IS AN ELECTRONICALLY VERIFIED REPORT 07/19/2017 11:03 PM: ??Maxwell Henry M.D. ?? Maxwell Henry M.D. AR:digna 11:03 PM 11:03 PM RYN [EOD] Narrative 07/19/2017 11:07 PM WINDOW GLAZIER EXAMINATION: ??Chest PA and lateral HISTORY: ??Sternal chest pain, nausea, throat discomfort, shortness of breath x1 day COMPARISON: ??None TECHNIQUE: ??PA and lateral views of the chest FINDINGS: No focal airspace opacity, pleural effusion, or pneumothorax is identified. Heart size is normal without pulmonary edema. Upper abdomen and visualized osseous structures reveal no acute abnormality. Procedure Note Provider, MD Edwardo - 11/29/2020 EXAMINATION: Chest PA and lateral HISTORY: Sternal chest pain, nausea, throat discomfort, shortness ofbreath x1 day COMPARISON: None TECHNIQUE: PA and lateral views of the chest FINDINGS: No focal airspace opacity, pleural effusion, or pneumothorax is identified. Heart size is normal without pulmonary edema. Upper abdomenand visualized osseous structures reveal no acute abnormality. IMPRESSION: Unremarkable chest radiographs. THIS IS AN ELECTRONICALLY VERIFIED REPORT 07/19/2017 11:03 PM: Maxwell Henry M.D. Maxwell Henry M.D. AR:digna 11:03 PM 11:03 PM RYN [EOD] us Deanna Trevizo NP IMG XR PROCEDURES Final Resu lt documented in this encounter Visit Diagnoses Diagnosis Shortness of breath Uncomplicated asthma documented in this encounter
--- OUTSIDE RECORDS SUMMARY | 2024-07-11 06:26 | XMS_ITS | Encounter Summary ---
Author Organization [facility] Healthcare Address [address] [place] [address] Care Team Providers Care Emergency Crew Supervisor Name Role Phone Unavailable Primary Care Provider Unavailabl e Encounter Details Date Type Department Care Team (Latest Contact Info) Description 06/22/2015 2:05 PM MEDICAID COLLECTION SPECIALIST - 06/22/2015 2:17 PM MEDICAID COLLECTION SPECIALIST Hospital Encounter [facility] Mando Wan II, MD [address] [facility] [place], [place] [id number] Rash and other nonspecific skin eruption; Other specified disorders of teeth and supporting structures Social History Tobacco Use Types Packs/Day Years Used Date Smoking Tobacco: Never Assessed Comments Unknown Sex and Gender Information Value Date Recorded Sex Assigned at Not on file Legal Sex Female 5:18 AM MEDICAID COLLECTION SPECIALIST Gender Identity Not on file Sexual Orientation Not on file documented as of this encounter Last Filed Vital Signs Vital Sign Reading Time Taken Comments Blood Pressure 133/63 06/22/2015 2:07 PM MEDICAID COLLECTION SPECIALIST Pulse 70 06/22/2015 2:07 PM MEDICAID COLLECTION SPECIALIST Temperature 36.8 ??C (98.2 ??F) 06/22/2015 2:07 PM CS T Respiratory Rate - - Oxygen Saturation 96% 06/22/2015 2:07 PM MEDICAID COLLECTION SPECIALIST Inhaled Oxygen Concentration - - Weight - - Height - - Body Mass Index - - documented in this encounter Plan of Treatment Not on file documented as of this encounter Visit Diagnoses Diagnosis Rash and other nonspecific skin eruption Other specified disorders of teeth and supporting structures documented in this encounter
--- OUTSIDE RECORDS SUMMARY | 2024-07-11 06:26 | XMS_ITS | Encounter Summary ---
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 mg, intravenous, Administer over 2 Minutes, Once, On 06/12/24 at 1649, For 1 dose 1648 (Given - Provid er: Sweetie Grover RN) documented in this encounter Orders Lab Orders Without Results Count Last Ordered D ate First Ordered Date POCT LACTATE - DEVICE 1 06/12/2024 POCT [id number]-V-[id number]-[id number]-HCT,WB - ISTAT 1 06/12/20 Nursing Count Last Ordered Date First Orde red Date NURSING COMMUNICATION 1 06/12/2024 documented in this encounter Care Teams Investment Accounting Clerk Relationship Specialty Start Date End Date Stephanie Miranda MD PCP - General Family Practice 02/05/22 Referring, Unknown, Pediatrics 10/01/18 documented as of this encounter
--- OUTSIDE RECORDS SUMMARY | 2024-07-11 06:26 | XMS_ITS | Encounter Summary ---
Author Organization [facility] Address [address] [address] Care Team Providers Care Public Health Inspector Name Role Phone Referring, Unknown Stephanie Pimentel MD Primary Care Provider Encounter Details Date Type Department Care Team (Late st Contact Info) Description 02/13/[address] 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 Miranda. She will follow up in 4wks as planned. * Telephone Encounter - Geneva Puga MA - 02/13/2022 11:57 AM CDT ----- Message from Stephanie Miranda MD sent at 02/12/2022 6:50 PM CDT ----- Iron levels are okay. No signs of iron deficiency. Continue iron supplementation CRP is normal. This makes acute infection or severe inflammatory illness unlikely TSH (thyroid function) is normal CMP - Electrolytes, kidney tests, and liver enzymes look good. Lipase is normal. No signs of pancreatitis CBC - very mild anemia despite the fact iron levels are not low I would have her continue an iron supplement as it could be responding to the supplementation given the iron levels are normalizing on labs some. Cell count was normal ruling out significant infection Let's see how she does with a trial of medication ordered at her appointment plan will be to re-evaluate her in 4 weeks as discussed at time of visit documented in this encounter Plan of Treatment Not on file documented as of this encounter Visit Diagnoses Not on filedocumented in this encounter Care Teams Public Health Inspector Relationship Specialty Start Date End Date Stephanie Miranda MD PCP - General Family Practice 02/05/22 ReferringZuly MD Pediatrics 10/01/18 documented as of this encounter
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
--- OUTSIDE RECORDS SUMMARY | 2024-07-11 06:26 | XMS_ITS | Encounter Summary ---
Author Organization [facility] Address [address] [place] [address] Care Team Providers Care Meat Stuffer Name Role Phone Referring, Unknown Stephanie Pimentel MD Primary Care Provider Encounter Details Date Type Department Care Team (Late st Contact Info) Description 11/12/2023 Telephone [facility] Primary Care at [address] [address] Stephanie Miranda MD [address] [place] [address] [address] [place] [address] Social History Tobacco Use Types [...] 1 02/11/2022 Personal Safety Answer Date Recorded Getting School Help Needed Not on file 08/04 Comments No Sex and Gender Information Value Date Recorded Sex Assigned at Not on file 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
--- OUTSIDE RECORDS SUMMARY | 2024-07-11 06:26 | XMS_ITS | Encounter Summary ---
Author Organization [facility] Address [address] [place] [address] Care Team Providers Care It Consulting Manager Name Role Phone Unavailable Primary Care Provider Unavailabl e Encounter Details Date Type Department Care Team (Late st Contact Info) Description 07/23/2021 12:00 PM ROCK CLIMBING TEAM MEMBER Rapid Evaluation [place] [facility] [address] [address] Social History Tobacco Use Types Packs/Day Years Used Date Smoking Tobacco: Never Assessed Comments Unknown Sex and Gender Information Value Date Recorded Sex Assigned at Not on file Legal Sex Female 11:42 AM ROCK CLIMBING TEAM MEMBER Gender Identity Not on file Sexual Orientation Not on file documented as of this encounter Plan of Treatment Not on file documented as of this encounter Visit Diagnoses Not on filedocumented in this encounter
--- OUTSIDE RECORDS SUMMARY | 2024-07-11 06:26 | XMS_ITS | Encounter Summary ---
Author Organization [facility] Care Team Providers Care Metal Fabricator Name Role Phone Unavailable Primary Care Provider Unavailabl e Encounter Details Date Type Department Care Team (Late st Contact Info) Description 08/31/2014 7:45 PM MACHINE TOOL ELECTRICIAN - 08/31/2014 11:08 PM MACHINE TOOL ELECTRICIAN Hospital Encounter [facility] Paula Martin MD [address] [place] [address] [address] [place] [address] Other and unspecified noninfectious gastroenteritis and colitis Social History Tobacco Use Types Packs/Day Years Used Date Smoking Tobacco: Never Assessed Comments Unknown Sex and Gender Information Value Date Recorded Sex Assigned at Not on file 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
--- OUTSIDE RECORDS SUMMARY | 2024-07-11 06:26 | XMS_ITS | Encounter Summary ---
Author Organization [facility] Address [address] [facility] [address] [place] [address] Care Team Providers Care Hand Alterations Tailor Name Role Phone Referring, Unknown Stephanie Pimentel MD Primary Care Provider Encounter Details Date Type Department Care Team (Late st Contact Info) Description 02/11/2022 11:30 AM CDT Lab [facility] Outpatient Lab at [address] [address] Moderate episode of recurrent major depressive disorder (HCC) Social History Tobacco Use Types Packs/Day Years [...] on file 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
--- OUTSIDE RECORDS SUMMARY | 2024-07-11 06:26 | XMS_ITS | Encounter Summary ---
Author Organization [facility] Address [address] [id number] Care Team Providers Care Senior Sales Assistant Name Role Phone Referring, Unknown Stephanie Pimentel MD Primary Care Provider Reason for Visit * Reason Comments Establish Care Patient is a new to this practice patient and is here to establish care. Patient reports her counselor wants her to get a psych recommendation. Encounter Details Date Type Department Care Team (Late st Contact Info) Description 02/11/2022 10:30 AM CDT Office Visit [facility] Primary Care at [address] [address] Stephanie Norris MD [address] [place] [address] [address] [place] [address] Moderate episode of recurrent major depressive disorder (HCC) (Primary Dx); Mood swing; BABATUNDE (generalized anxiety disorder); Family history of bipolar disorder; Indigestion; Nausea and vomiting, unspecified vomiting type; Mild intermittent asthma without complication; Iron deficiency anemia due to chronic blood loss; Class 2 obesity due to excess calories without serious comorbidity with body mass index (BMI) of 39.0 to 39.9 in adult; Marijuana use Social History Tobacco Use Types Packs/Day Years [...] when you are drinking? 1 or 2 2 Q3: How often do you have si x or more drinks on one occasion? 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 Gender Identity Not on file Sexual Orientation Not on file documented as of this encounter Last Filed Vital Signs Vital Sign Reading Time Taken Comments Blood Pressure 124/67 02/11/2022 10:47 AM CDT Pulse 105 02/11/2022 10:47 AM CDT Temperature - - Respiratory Rate - - Oxygen Saturation - - Inhaled Oxygen Concentration - - Weight 114.3 kg (252 lb) 02/11/2022 10:47 AM CDT Height 170.2 cm (5' 7 ) 02/11/2022 10:47 AM CDT Body Mass Index 39.47 02/11/2022 10:47 AM CDT documented in this encounter Patient Instructions * Patient Instructions* Stephanie Norris MD - 02/11/2022 10:30 AM CDT 1 month trial of omeprazole before breakfast Try to avoid triggers if possible Keep symptoms diary to help identify causes Depression/anxiety Treatment Untreated, depression can last 9 to 12 months or longer. Early treatment can: shorten the length ofan episode, lessen the severity of an episode, and reduce the chance depression will come back.Treatment is often a combination of medicine and psychotherapy or Counseling. Medicines: There are many different types of medicines to treat depression. Some of these work well for some people and not so well for others. Your doctor may need to try more than one medicine to find the best one for you. For some people, a combination of medicines may be helpful. There are a variety of medicines called antidepressants that help depression. Antidepressants work by restoring the chemical balance in the brain. These medicines are not habit-forming, but they are strong. They may take 2 to 6 weeks to work fully. Most people will need to take antidepressant medicine for6 to 12 months or longer. It is important to: Keep all of your appointments with your doctor. Report any side effects or changes in signs to your doctor. Follow all instructions about how much medicine to take and when to take it. Talk to your doctor before you stop taking your medicines. Psychotherapy or Counseling: Psychotherapy or counseling will help you understand yourself better and learn ways to cope. You will learn about your illness and better ways to solve problems and manage stress. Psychotherapy is most often provided by a psychologist, social media executive, clinical nurse specialist in mental health, or a pastoral counselor. Mindfulness Consider Mindfulness (self-guided meditation, self-awareness exercises). Doing 15-30 minutes of mindfulness a few days a week has been shown to significantly improve anxiety and depression scores. [employer] Mindfulness and free you can find several good resources. [facility] [employer] and [employer] haveCleverSetite with links to some good starting resource. Programs like [employer] and [employer] offer resourcesfor a fee. I suggest trying some free resources before considering spending money on these. Ways you can help yourself In addition to getting the treatment needed to relieve depression, there are a number of things youcan do to help yourself: Eat a well-balanced diet. Choose foods from all food groups: milk, meats, breads and cereals, fruits and vegetables. Choose healthier snacks instead of junk food. Remain active, even if you do not feel like it. Avoid being alone. Spend time in the company of others. Do not set difficult goals or take on additional responsibility when depressed. Avoid making major life decisions when possible. Go easy on yourself, and don't expect too much too fast. Treat yourself with respect and kindness. Join a support group. Notify your doctor/counselor or go to the ER right away if you have suicidal thoughts. Set a small goal each day that you can do such as read the newspaper. Share your feelings with others or write your thoughts and feelings in a journal. Be patient and understand your limits. Deep sadness is normal with losses, but it should gradually lessen over time. Recall a particularly joyful event in your life by reviewing wedding videos, photos or audio tapes. Plan pleasurable activities for each day. Monitor your sleep patterns. Be aware of ???sleeping to escape?? . Involve yourself in creative activities such as drawing, painting and poetry. If anti-depressant medicine is needed, be open to its benefits. Consider trying meditation, relaxation, exercising or prayer. Ways your family and friends can help you Help the depressed person choose to do things they enjoy. Encourage your loved one to engage in activities as much as possible. Do not minimize or reject the feelings of the depressed person. Encourage your loved one to reflect on some of his or her strengths, accomplishments or positive traits. Avoid using clich??s such as ???things could be worse.?? If you have signs of depression, it is not your fault. It is not a sign of personal weakness. Learnabout depression and follow your treatment plan. Your family, friends and health care team are hereto support you. [place] Suicide Prevention Lifeline 0-987-801-TALK ( ) or 985 A skilled, trained counselor in your are is available you are 24 hours a day 7 days a week to talk.If you feel in a crisis, whether or not you are thinking of hurting yourself, and need to talk please consider calling the Lifeline. All calls are confidential and FREE Other resources available: National [place] of Mental Health www.nimh.nih.gov [employer] www.psych.org * Attachments The following attachments cannot be sent through Care Everywhere. * Gastroesophageal Reflux Disease (Community Health Representative) ([place]) documented in this encounter Ordered Prescriptions Prescription Sig Dispense Quantity Refills Last Filled Start Date End Date omeprazole (PriLOSEC) 40 mg capsuleIndications :Indigestion Take 1 capsule (40 mg total) by mouth daily before breakfast 30 capsule 02/11/2022 albuterol HFA (PROVENTIL HFA,VENTOLIN HFA,PROAIR HFA) 90 mcg/actuation inhalerIndications :Mild intermittent asthma without complication Inhale 2 puffs every 6 (six) hours as needed for wheezing 3 each 4 02/11/2022 documented in this encounter Progress Notes * Stephanie Norris MD - 02/11/2022 10:30 AM CDT SUBJECTIVE: Elodia Hicks is a 21 y.o. female here to establish care and to discuss the following. Last not seen PCP in about 3 yrs. 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 Notes frequent dyspnea on exertion with activity but minimal wheeze. Able to play soccer. Struggling with mood. Reports needs psych referral. Notes severe depression. Working with counselorsjake llamas. Denies thoughts of self harm or suicide. Denies hallucinations or delusions. Has frequent mood fluctuance. Wants to see psychiatry PHQ Screening Over the last 2 weeks, how often have you been bothered by any of the following problems? Little Interest or Pleasure in Doing Things: Not at all Feeling Down, Depressed, or Hopeless: Several days PHQ-2 Total Score (If total score is 3 or more points, staff should administer the PHQ-9): 1 Over the past 2 weeks, how often have you been bothered by any of the following problems? Little Interest or Pleasure in Doing Things: Not at all Feeling Down, Depressed, or Hopeless: Several days PHQ-2 Total Score (If total score is 3 or more points, staff should administer the PHQ-9): 1 Notes struggles with insomnia last few months. Can wake up at times in middle of night with nausea and vomiting and some diarrhea. No blood in stool or melena. Seen in ER and found to be anemic. Does smoke MJ daily. Denies frequent daytime indigestion or vomiting. Notes skips dinner a lot of nights. Will eat late lunch. Has moderate acid indigestion. Some sensitivities to certain smells. Denies fevers or chills. Has lost 20 lbs in last few months but has leveled off some. She notes that the weight loss was not intentional and was related to the abdominal complaints Does get nauseated a little easier Only stools 1-2 times a day PMH, PSH, and FamHx all updated and reviewed as indicated Current Outpatient Medications Medication Sig Dispense Refill ??? ibuprofen (IBU ORAL) Take by mouth as needed ??? albuterol HFA (PROVENTIL HFA,VENTOLIN HFA,PROAIR HFA) 90 mcg/actuation inhaler Inhale 2 puffs every 6 (six) hours as needed for wheezing 3 each 4 ??? omeprazole (PriLOSEC) 40 mg capsule Take 1 capsule (40 mg total) by mouth daily before breakfast 30 capsule 0 No current facility-administered medications for this visit. Social History Tobacco Use ??? Smoking status: Never Smoker ??? Smokeless tobacco: Never Used ??? Tobacco comment: vape Substance and Sexual Activity ??? Drug use: Yes Frequency: 7.0 times per week Types: Marijuana ??? Sexual activity: Yes control/protection: Condom Male Alcohol Use: Heavy Drinker ??? Frequency of Alcohol Consumption: 4 or more times a week ??? Average Number of Drinks: 1 or 2 ??? Frequency of Binge Drinking: Monthly Allergies Allergen Reactions ??? Shellfish Containing Products Itching ? ? Tylenol [Acetaminophen] Cough and Nausea & Vomiting Patient's last menstrual period was 01/11/2022 (exact date). REVIEW OF SYSTEMS Constitutional: Denies fever, chills Eyes: no discomfort. Ears, nose, mouth, and throat: Denies nasal discharge, sorethroat Respiratory: Denies cough. +dyspnea on exertion Cardiovascular: Denies chest pain, palpitations Gastrointestinal: see hpi Genitourinary: Denies dysuria Skin: Denies recent rashes Hematologic/lymphatic: Denies abnormal bleeding or bruising. Musculoskeletal: Denies myalgias Neurological: Denies numbness, tingling, syncope, dizziness. Denies TIA or stroke-like symptoms Behavioral/Psych: See hpi Endocrine: Some fatigue OBJECTIVE: Vitals: 02/11/22 1047 BP: 124/67 BP Location: Right arm Patient Position: Sitting Pulse: 105 Weight: 114.3 kg (252 lb) Height: 170.2 cm (5' 7 ) Body mass index is 39.47 kg/m??. General: alert, well appearing, and in no acute distress HEENT: Normocephalic atraumatic. PERRLA, EOMI, no conjunctivitis. Bilateral TM's and external ear canals normal. No cervical adenopathy. Thyroid normal without nodules or thyromegaly. CV exam: regular rate and rhythm, normal S1 and S2, no murmurs, rubs, or gallops appreciated. Respiratory: clear to auscultation bilaterally, no wheezes, rales, or rhonchi, Good aeration. no tachypnea, retractions, or cyanosis Abdominal exam: Soft, non-tender abdomen. No rebound or guarding. No masses or hepatosplenomegaly noted. Neuro: Alert and oriented x 3, Cranial nerves II-XII grossly intact. PERRLA. EOMI. Strength and sensation grossly intact in bilateral upper extremities and bilateral lower extremities. 1+ bilateral patellar reflexes. Grossly non-focal Psych: Normal mood and affect today. Skin: Warm, dry, without significant rash Ext: No cyanosis or clubbing. No peripheral edema. ASSESSMENT & PLAN: Diagnosis Plan 1. Moderate episode of recurrent major depressive disorder (HCC) Ambulatory referral to Psychiatry Ambulatory referral to Psychiatry Contracted for safety. Refer to Psychiatry. Some symptoms concerning for potential bipolar disorder 2. Mood swing Ambulatory referral to Psychiatry Ambulatory referral to Psychiatry 3. BABATUNDE (generalized anxiety disorder) Ambulatory referral to Psychiatry Ambulatory referral to Psychiatry 4. Family history of bipolar disorder Ambulatory referral to Psychiatry Ambulatory referral to Psychiatry 5. Indigestion omeprazole (PriLOSEC) 40 mg capsule CBC with auto differential Comprehensive metabolic panel TSH reflex to free T4 Iron profile w/ IBC Lipase CRP (acute phase) Avoid triggers. Trial of PPI. Limit NSAIDs. Monitor 6. Nausea and vomiting, unspecified vomiting type CBC with auto differential Comprehensive metabolic panel TSH reflex to free T4 Iron profile w/ IBC Lipase CRP (acute phase) Suspect related to end for 1 month. We will see her back in 1 month to see how she is doing. Check labs due to assocaited weight loss 7. Mild intermittent asthma without complication albuterol HFA (PROVENTIL HFA,VENTOLIN HFA,PROAIR HFA) 90 mcg/actuation inhaler Of albuterol. If finds needing it regularly other than prior to sports and will need to start her on a controller inhaler 8. Iron deficiency anemia due to chronic blood loss CBC with auto differential Iron profile w/ IBC Patient reported. Encouraged to take daily iron supplements if tolerated. Monitor 9. Class 2 obesity due to excess calories without serious comorbidity with body mass index (BMI) of39.0 to 39.9 in adult Encouraged healthy diet and lifestyle. Intentional weight loss is recommended however we will need to monitor for unintentional weight loss given stomach 10. Marijuana use counseled to cut back/quit. Discussed risks for cyclic vomiting syndrome with chronic marijuana use Healthy Living Tips Low fat, low cholesterol diet rich in lean proteins, whole grains, fruits and vegetables. Limit fast foods and processed foods ACSM activity recs: 150 minutes/week. 30 minutes most days of the week. Advised to call or return if symptoms worsen or fail to improve as expected, or pt develops any other concerning symptoms. An After Visit Summary was printed and given to the patient. F/u in 1 month for stomach issues Stephanie Norris MD documented in this encounter Plan of Treatment Not on file documented as of this encounter Results * CRP (acute phase) (02/11/2022 11:34 AM CDT) CRP 4.3 <=10.0 mg/L [facility] Blood 02/11/2022 11:3 4 AM CDT 02/11/2022 6:37 PM CDT Stephanie Norris MD LAB BLOOD ORDERABLES F inal Result Performing Organization Address [facility]/ZIP Co de Phone Number STEVIE [address] [place] [address] * Lipase (02/11/2022 11:34 AM CDT) Lipase 22 10 - 99 Units/L [facility] Blood 02/11/2022 11:3 4 AM CDT 02/11/2022 6:37 PM CDT Stephanie Norris MD LAB BLOOD ORDERABLES F inal Result Performing Organization Address [facility]/ZIP Co de Phone Number STEVIE [address] [address] Department [place] [address] * (ABNORMAL) Iron profile w/ IBC (02/11/2022 11:34 AM CDT) Iron 126 35 - 145 mcg/dl [facility] TIBC 451(H) 250 - 400 mcg/dL [facility] Transferrin saturation 28 20 - 50 % [facility] Blood 02/11/2022 11:3 4 AM CDT 02/11/2022 6:37 PM CDT Stephanie Norris MD LAB BLOOD ORDERABLES F inal Result Performing Organization Address City/[facility]/ZIP Co de Phone Number STEVIE MILLIGAN [address] [address] [employer] [place], [place] [phone] * TSH reflex to free T4 (02/11/2022 11:34 AM CDT) TSH 1.21 0.30 - 4.20 mcIUnit/mL [facility] Blood 02/11/2022 11:3 4 AM CDT 02/11/2022 6:37 PM CDT Stephanie Norris MD LAB BLOOD ORDERABLES F inal Result Performing Organization Address [facility]/RUST de Phone Number STEVIE MILLIGAN [phone] [address] [place] [address] * (ABNORMAL) Comprehensive metabolic panel (02/11/2022 11:34 AM CDT) Sodium 139 135 - 145 mmol/L [facility] Potassium, pl 4.5 3.3 - 4.9 mmol/L [facility] Chloride 105 97 - 110 mmol/L [facility] CO2 24 22 - 32 mmol/L [facility] Anion gap 10 2 - 15 mmol/L [facility] BUN 7(L) 8 - 25 mg/dL [facility] Creatinine 0.69 0.60 - 1.10 mg/dL CERNER [...] CDT 02/11/2022 6:37 PM CDT us Stephanie Norris MD LAB BLOOD [place]AB[place] [address] [address] Department [place] [address] * (ABNORMAL) CBC with auto differential (02/11/2022 11:34 AM CDT) WBC 7.8 3.8 - 9.9 K/cumm [facility] Hgb 10.9(L) 11.9 - 15.5 g/dL [facility] Hct 36.9 35.6 - 45.5 % [facility] Plt 316 150 - 400 K/cumm [facility] MPV 12.7(H) 9.1 - 12.3 fL [facility] RBC 4.36 3.90 - 5.20 M/cumm [facility] MCV 84.6 81.3 - 96.4 fL [facility] MCH 25.0(L) 27.1 - 33.3 pg [facility] MCHC 29.5(L) 32.3 - 35.7 g/dL [facility] RDW CV 17.2(H) 11.1 - 14.9 % [facility] RDW SD 53.2(H) 35.7 - 48.1 fL [facility] NRBC abs 0.00 0.00 - 0.01 K/cumm [facility] Blood 02/11/2022 11:3 4 AM CDT 02/11/2022 6:37 PM CDT Stephanie Norris MD LAB BLOOD ORDERABLES F inal Result STEVIE [address] [facility] Department [place] [address] documented in this encounter Visit Diagnoses Diagnosis Moderate episode of recurrent major depressive disorder (HCC)- Primary Mood swing Other specified episodic mood disorder BABATUNDE (generalized anxiety disorder) Generalized anxiety disorder Family history of bipolar disorder Family history of psychiatric condition Indigestion Dyspepsia and other specified disorders of function of stomach Nausea and vomiting, unspecified vomiting type Mild intermittent asthma without complication Iron deficiency anemia due to chronic blood loss Iron deficiency anemia secondary to blood loss (chronic) Class 2 obesity due to excess calories without serious comorbidity with body mass index (BMI) of 39.0 to 39.9 in adult Marijuana use documented in this encounter Historical Medications * This list may reflect changes made after this encounter. ibuprofen (IBU ORAL) Take by mouth as needed added in this encounter Care Teams Senior Sales Assistant Relationship Specialty Start Date End Date Stephanie Norris MD PCP - General Family Practice 02/05/22 Referring, MD [facility] 10/01/18 documented as of this encounter
--- OUTSIDE RECORDS SUMMARY | 2024-07-11 06:26 | XMS_ITS | Encounter Summary ---
Author Organization [facility] Address [address] [address] Care Team Providers Care Road Mechanic Name Role Phone Referring, Unknown Stephanie Pimentel MD Primary Care Provider Encounter Details Date Type Department Care Team (Late st Contact Info) Description 02/18/2022 Telephone [facility] Sports Medicine and Primary Care at [address] [place] [address] Stephanie Miranda MD [address] [place] [address] [address] [place] [address] Social History Tobacco Use Types [...] on file Legal Sex Female 5:18 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 It will be addressed at her appt on 03/11/22. * Telephone Encounter - Geneva Puga MA - 02/18/2022 4:20 PM CDT LVM for patient to call back to discuss her referral. documented in this encounter Plan of Treatment Not on file documented as of this encounter Visit Diagnoses Not on filedocumented in this encounter Care Teams Road Mechanic Relationship Specialty Start Date End Date Stephanie Miranda MD PCP - General Family Practice 02/05/22 Referring, MD [facility] 10/01/18 documented as of this encounter
--- OUTSIDE RECORDS SUMMARY | 2024-07-11 06:26 | XMS_ITS | Encounter Summary ---
Author Organization [facility] Address [address] [place] [address] Care Team Providers Care Gas Main Fitter Name Role Phone Unavailable Primary Care Provider Unavailabl e Encounter Details Date Type Department Care Team (Latest Contact Info) Description 05/27/2013 10:26 PM WASHERY ENGINEER - 05/28/2013 12:35 AM WASHERY ENGINEER Hospital Encounter [facility] ER Sprain and strain of shoulder and upper arm; Fall from other slipping, tripping, or stumbling; Chronic sinusitis Social History Tobacco Use Types Packs/Day Years Used Date Smoking Tobacco: Never Assessed Comments Unknown Sex and Gender Information Value Date Recorded Sex Assigned at Not on file Legal Sex Female 5:18 AM WASHERY ENGINEER Gender Identity Not on file Sexual Orientation Not on file documented as of this encounter Last Filed Vital Signs Vital Sign Reading Time Taken Comments Blood Pressure 145/80 05/27/2013 10:38 PM WASHERY ENGINEER Pulse 92 05/27/2013 10:38 PM WASHERY ENGINEER Temperature 36.8 ??C (98.3 ??F) 05/27/2013 1 0:38 PM WASHERY ENGINEER Respiratory Rate - - Oxygen Saturation 100% 05/27/2013 10: 38 PM WASHERY ENGINEER Inhaled Oxygen Concentration - - Weight 76.4 kg (168 lb 6.9 oz) 05/27/20 13 10:38 PM WASHERY ENGINEER Height 123.7 cm (4' 0.72 ) 05/27/2013 1 0:38 PM WASHERY ENGINEER Body Mass Index 49.89 05/27/2013 10:38 PM WASHERY ENGINEER Body Mass Index Percentile 100.00% 05/27 10:38 PM WASHERY ENGINEER Growth Chart: [facility] (Girls, 2- 20 Years) documented in this encounter Plan of Treatment Not on file documented as of this encounter Procedures Procedure Name Priority Date/Time Associated Diagnosis Comments XR HIP LEFT 2 OR 3 VIEWS Routine 05/27/2013 12:00 AM WASHERY ENGINEER documented in this encounter Results * XR Hip Left 2 or 3 Views (05/27/2013 12:00 AM WASHERY ENGINEER) Anatomical Region Laterality Modality Lower Extremities, Hip, Pelvis Left R adiographic Imaging 05/27/2013 Impressions 05/27/2013 11:29 PM WASHERY ENGINEER ??No fracture or dislocation of the left hip. ??No plain film evidence of a large left hip joint effusion. ??No evidence of slipped capital femoral epiphyses. THIS IS AN ELECTRONICALLY VERIFIED REPORT 05/27/2013 11:26 PM: ??Angela Jonas M.D. Angela Jonas M.D. SS: 11:26 PM 11:26 PM [EOD] Narrative 05/27/2013 11:29 PM WASHERY ENGINEER EXAMINATION: ??2 view left hip dated 05/27/2013 at 2311 hours HISTORY: Left hip pain COMPARISON: ??None TECHNIQUE: ??A frontal view and frog-leg lateral view of left hip are submitted. FINDINGS: ??No evidence of fracture or dislocation of the left hip. Procedure Note Provider, MD Edwardo - 11/29/2020 EXAMINATION: 2 view left hip dated 05/27/2013 at 2311 hours HISTORY: Left hip pain COMPARISON: None TECHNIQUE: A frontal view and frog-leg lateral view of left hip aresubmitted. FINDINGS: No evidence of fracture or dislocation of the left hip. IMPRESSION: No fracture or dislocation of the left hip. No plain film evidence of a large left hip joint effusion. No evidence of slippedcapital femoral epiphyses. THIS IS AN ELECTRONICALLY VERIFIED REPORT 05/27/2013 11:26 PM: Angela Jonas M.D. Angela Jonas M.D. SS:ss 11:26 PM 11:26 PM [EOD] Leida Kessler PA IMG XR PROCEDURES Final Resul t documented in this encounter Visit Diagnoses Diagnosis Sprain and strain of shoulder and upper arm Fall from other slipping, tripping, or stumbling Chronic sinusitis Unspecified sinusitis (chronic) documented in this encounter
--- OUTSIDE RECORDS SUMMARY | 2024-07-11 08:10 | XMS_ITS | Clinical Summary ---
Author Organization [facility] Care Team Providers Care Optical Goods Drilling Machine Operator Name Role Phone Unavailable Primary Care Provider Unavailabl e Allergies Active Allergy Reactions Criticality Noted Date Comments Acetaminophen Itching 04/13/2024 Medications No known medications Encounters Date Type Department Care Team Description 04/13/2024 10:25 AM CDT - 04/13/2024 11:51 AM CDT Emergency [facility] Emergency [address] [place] [address] Discharge Disposition: LWBS 04/13/2024 Travel from Last 3 Months Social History Tobacco Use Types Packs/Day Years Used Date Smoking Tobacco: Never Assessed Comments Unknown Sex and Gender Information Value Date Recorded Sex Assigned at Not on file Legal Sex Female 11:42 AM BENZENE WASHER Gender Identity Not on file Sexual Orientation [...] DETECTED NOT DETECTED 04/13/2024 11:50 AM CDT [facility] Swab SPECIMEN FROM THROAT / Unknown Non-Phlebotomy Collection / Unknown 04/13/2024 10:50 AM CDT 04/13/2024 11:17 AM CDT Ulysses García PAC MICROBIOLOGY - GENERA L ORDERABLES Final Result [facility] [address] [place] [address] * RSV,SARS-COV-2,INFLUENZA A&B BY PCR (04/13/2024 10:50 AM CDT) FLU A Negative Negative, Error 04/13/2024 12:02 PM CDT [facility] FLU B Negative Negative 04/13/2024 12:02 PM CDT [facility] RESP SYNC VIRUS Negative Negative 12:02 PM CDT [facility] SARSCOV2 NOT DETECTED (Reference Range for this test is Not Detected) 04/13/2024 12:02 PM CDT [facility] Comment:This test was perfor med by a Reverse Supervisor Rough End PCR Method. Swab NASOPHARYNGEAL SWAB / Unknown Non-Phlebotomy Collection / Unknown 04/13/2024 10:50 AM CDT 04/13/2024 11:17 AM CDT Narrative [facility] - 04/13/2024 12:02 PM CDT This test has not been FDA cleared or approved; the test has been authorized by FDA under an Emergency Use Authorization (EUA) for use by laboratories certified under the CLIA that meet the requirements to perform moderate, high or waived complexity tests. Authorized Fact Sheets about this test for providers and patients are available at: https://www.fda.gov/medical-devices/meqlezqgq-vagzlymwwp-oxehwgw-devices/emergen -us e-authorizations Ulysses García PAC MICROBIOLOGY - GENERA L ORDERABLES Final Result [facility] [address] [place] [address] from Last 3 Months
--- OUTSIDE RECORDS SUMMARY | 2024-07-11 08:10 | XMS_ITS | Encounter Summary ---
Author Organization [facility] Address [address] [place] [address] Care Team Providers Care Traffic Operations Engineer Name Role Phone Unavailable Primary Care Provider Unavailabl e Encounter Details Date Type Department Care Team (Late st Contact Info) Description 07/23/2021 12:00 PM CARD FIXER Rapid Evaluation [place] [facility] Community Testing [address] [address] Social History Tobacco Use Types Packs/Day Years Used Date Smoking Tobacco: Never Assessed Comments Unknown Sex and Gender Information Value Date Recorded Sex Assigned at Not on file Legal Sex Female 11:42 AM CARD FIXER Gender Identity Not on file Sexual Orientation Not on file documented as of this encounter Plan of Treatment Not on file documented as of this encounter Visit Diagnoses Not on filedocumented in this encounter
--- OUTSIDE RECORDS SUMMARY | 2024-07-11 08:10 | XMS_ITS | Encounter Summary ---
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
--- OUTSIDE RECORDS SUMMARY | 2024-07-11 08:10 | XMS_ITS | Clinical Summary ---
Author Organization [place] [id number] [facility] Address [address] [place] [address] Care Team Providers Care Golf Ball Marker Name Role Phone Referring, Unknown Stephanie Pimentel [...] Department Care Team Description 06/12/2024 4:06 PM CATH LAB TECHNOLOGIST - 06/12/2024 6:06 PM CATH LAB TECHNOLOGIST Emergency [facility] Emergency Department [address] [place] [address] Zachariah Schuler MD Right hand [...] on file Legal Sex Female 5:18 AM CATH LAB TECHNOLOGIST Gender Identity Not on file Sexual Orientation Not on file Obstetrics History Para Term AB IAB SAB Ectopic Multiple Livin g Live Births 0 0 0 0 0 0 0 0 0 0 0 Last Filed Vital Signs Vital Sign Reading Time Taken Comments Blood Pressure 140/89 06/12/2024 5:53 PM CATH LAB TECHNOLOGIST Pulse 68 06/12/2024 5:53 PM CATH LAB TECHNOLOGIST Temperature 36.8 ??C (98.3 ??F) 06/12/2024 4:18 PM CS T Respiratory Rate 20 06/12/2024 5:53 PM CATH LAB TECHNOLOGIST Oxygen Saturation 100% 06/12/2024 5:53 PM CATH LAB TECHNOLOGIST Inhaled Oxygen Concentration - - Weight 106.6 kg (235 lb) 06/12/2024 4:23 PM CATH LAB TECHNOLOGIST Height 172.7 cm (5' 8 ) 06/12/2024 4:23 PM CATH LAB TECHNOLOGIST Body Mass Index 35.73 06/12/2024 4:23 PM CATH LAB TECHNOLOGIST Plan of Treatment Health Maintenance Due Date [...] VIEWS ED Urgent/IP Urgent 06/12/2024 5:04 PM CATH LAB TECHNOLOGIST XR HAND RIGHT 3 OR MORE VIEWS ED 06/12/2024 5:04 PM CATH LAB TECHNOLOGIST XR HAND LEFT 3 OR MORE VIEWS ED 06/12/2024 5:04 PM CATH LAB TECHNOLOGIST CT HEAD AND CERVICAL SPINE WO CONTRAST ED 06/12/2024 5:02 PM CATH LAB TECHNOLOGIST POCT LACTATE - DEVICE Routine 06/12/2024 4:34 PM CATH LAB TECHNOLOGIST POC BLOOD GAS AND CHEMISTRIES, ARTERIAL Routine 06/12/2024 4:31 PM CATH LAB TECHNOLOGIST XR CHEST 1 VIEW ED 06/12/2024 4:29 PM CATH LAB TECHNOLOGIST XR PELVIS 1 OR 2 VIEWS ED Urgent/IP Urgent 06/12/2024 4:29 PM CATH LAB TECHNOLOGIST THROMBOELASTOMETRY PANEL - EXTRINSIC STAT 06/12/2024 4:18 PM CATH LAB TECHNOLOGIST THROMBOELASTOMETRY PANEL - HEPARIN STAT 06/12/2024 4:18 PM CATH LAB TECHNOLOGIST THROMBOELASTOMETRY PANEL - INTRINSIC STAT 06/12/2024 4:18 PM CATH LAB TECHNOLOGIST THROMBOELASTOMETRY PANEL - FIBRINOGEN STAT 06/12/2024 4:18 PM CATH LAB TECHNOLOGIST EGFR STAT 06/12/2024 4:18 PM CATH LAB TECHNOLOGIST DIFFERENTIAL AUTO STAT 06/12/2024 4:1 8 PM CATH LAB TECHNOLOGIST BASIC METABOLIC PANEL STAT 06/12/2024 4:18 PM CATH LAB TECHNOLOGIST THROMBOELASTOMETRY PANEL STAT 024 4:18 PM CATH LAB TECHNOLOGIST PROTIME-INR STAT 06/12/2024 4:18 PM CATH LAB TECHNOLOGIST APTT STAT 06/12/2024 4:18 PM CATH LAB TECHNOLOGIST ETHANOL STAT 06/12/2024 4:18 PM CATH LAB TECHNOLOGIST CBC WITH AUTO DIFFERENTIAL STAT 06/12/2024 4:18 PM CATH LAB TECHNOLOGIST BLOOD GAS, VENOUS STAT 06/12/2024 4:1 8 PM CATH LAB TECHNOLOGIST from Last 3 Months Results * XR Wrist Right 3 or More Views (06/12/2024 5:04 PM CATH LAB TECHNOLOGIST) Anatomical Region Laterality Modality Upper Extremities, Wrist Right Compute d Radiography 06/12/2024 5:11 PM CATH LAB TECHNOLOGIST Impressions 06/12/2024 5:18 PM CATH LAB TECHNOLOGIST 1. ??No acute fracture of the right hand or wrist. 2. ??No acute fracture of the left hand. Dictated by: Olayinka Connor MD The radiology attending physician has personally reviewed this study, and had reviewed and/or edited this written report and agrees with it. Electronically signed by: Billy Apodaca M.D. Narrative 06/12/2024 5:18 PM CATH LAB TECHNOLOGIST EXAMINATION: XR HAND LEFT 3 OR MORE [...] 3 or More Views (06/12/2024 5:04 PM CATH LAB TECHNOLOGIST) Anatomical Region Laterality Modality Upper Extremities, Hand Right Computed Radiography 06/12/2024 5:11 PM CATH LAB TECHNOLOGIST Impressions 06/12/2024 5:18 PM CATH LAB TECHNOLOGIST 1. ??No acute fracture of the right hand or wrist. 2. ??No acute fracture of the left hand. Dictated by: Olayinka Connor MD The radiology attending physician has personally reviewed this study, and had reviewed and/or edited this written report and agrees with it. Electronically signed by: Billy Apodaca M.D. Narrative 06/12/2024 5:18 PM CATH LAB TECHNOLOGIST EXAMINATION: XR HAND LEFT 3 OR MORE [...] 3 or More Views (06/12/2024 5:04 PM CATH LAB TECHNOLOGIST) Anatomical Region Laterality Modality Upper Extremities, Hand Left Computed Radiography 06/12/2024 5:11 PM CATH LAB TECHNOLOGIST Impressions 06/12/2024 5:18 PM CATH LAB TECHNOLOGIST 1. ??No acute fracture of the right hand or wrist. 2. ??No acute fracture of the left hand. Dictated by: Olayinka Connor MD The radiology attending physician has personally reviewed this study, and had reviewed and/or edited this written report and agrees with it. Electronically signed by: Billy Apodaca M.D. Narrative 06/12/2024 5:18 PM CATH LAB TECHNOLOGIST EXAMINATION: XR HAND LEFT 3 OR MORE [...] Cervical Spine WO Contrast (06/12/2024 5:02 PM CATH LAB TECHNOLOGIST) Anatomical Region Laterality Modality Head and Neck N/A Computed Tomogra phy 06/12/2024 5:10 PM CATH LAB TECHNOLOGIST Impressions 06/12/2024 5:13 PM CATH LAB TECHNOLOGIST 1. No acute intracranial process. 2. No evidence of acute fracture in the cervical spine. Dictated by: George Harris MD The radiology attending physician has personally reviewed this study, and had reviewed and/or edited this written report and agrees with it. Electronically signed by: Melissa Sparks MD Narrative 06/12/2024 5:13 PM CATH LAB TECHNOLOGIST EXAMINATION: 1. CT head without contrast 2. [...] * (ABNORMAL) POCT lactate (06/12/2024 4:34 PM CATH LAB TECHNOLOGIST) Lactate POC i-STAT 0.6(L) 0.7 - 2.2 mmol/L Blood 06/12/2024 4:34 PM CATH LAB TECHNOLOGIST 06/12/2024 4:34 PM CATH LAB TECHNOLOGIST Zachariah Schuler MD LAB POCT ORDERABLES - DEVICE Final Result [facility] Department [place] [address] * POC Blood Gas and Chemistries, Arterial - (06/12/2024 4:31 PM CATH LAB TECHNOLOGIST) Hct, POC 37.0 36.3 - 45.3 % Total Hb, POC 12.2 11.9 - 15.5 g/dL [facility] Blood 06/12/2024 4:31 PM CATH LAB TECHNOLOGIST 06/12/2024 4:31 PM CATH LAB TECHNOLOGIST us Zachariah Schuler MD LAB POCT ORDERABLES - DEVICE Final Result Performing Organization Address [facility] Co de Phone Number [facility] Farzana [facility] [place] [address] * XR Chest 1 Vw Portable (06/12/2024 4:29 PM CATH LAB TECHNOLOGIST) Anatomical Region Laterality Modality Body, Chest N/A Computed Radiogr aphy 06/12/2024 5:04 PM CATH LAB TECHNOLOGIST Impressions 06/12/2024 5:07 PM CATH LAB TECHNOLOGIST CHEST: No prior radiographs available for comparison. [...] Billy Apodaca M.D. Narrative 06/12/2024 5:07 PM CATH LAB TECHNOLOGIST EXAMINATION: XR PELVIS 1 OR 2 VIEWS, [...] 1 or 2 Views (06/12/2024 4:29 PM CATH LAB TECHNOLOGIST) Anatomical Region Laterality Modality Body, Pelvis N/A Computed Radiogr aphy 06/12/2024 5:04 PM CATH LAB TECHNOLOGIST Impressions 06/12/2024 5:07 PM CATH LAB TECHNOLOGIST CHEST: No prior radiographs available for comparison. [...] Billy Apodaca M.D. Narrative 06/12/2024 5:07 PM CATH LAB TECHNOLOGIST EXAMINATION: XR PELVIS 1 OR 2 VIEWS, [...] Thromboelastometry Panel - Heparin (06/12/2024 4:18 PM CATH LAB TECHNOLOGIST) [facility] HEPTEM-CT 179 141 - 215 sec HEPTEM-A5 48 33 - 51 mm [facility] HEPTEM-A10 58 44 - 61 mm [facility] HEPTEM-A20 63 52 - 67 mm [facility] HEPTEM-MCF 64 54 - 69 mm [facility] Blood 06/12/2024 4:18 PM CATH LAB TECHNOLOGIST 06/12/2024 4:30 PM CATH LAB TECHNOLOGIST Zachariah Schuler MD LAB BLOOD ORDERABLES Edited [facility] Performing Organization Address [facility] de Phone Number [facility] [place] [address] * Thromboelastometry Panel - Intrinsic (06/12/2024 4:18 PM CATH LAB TECHNOLOGIST) [facility] INTEM-CT 178 139 - 205 sec INTEM-A5 48 36 - 54 mm [facility] INTEM-A10 58 46 - 63 mm [facility] INTEM-A20 63 53 - 68 mm [facility] INTEM-MCF 64 55 - 70 mm [facility] INTEM-LI60 96 93 - 100 % [facility] INTEM-ML 6 0 - 7 % [facility] Blood 06/12/2024 4:18 PM CATH LAB TECHNOLOGIST 06/12/2024 4:30 PM CATH LAB TECHNOLOGIST Zachariah Schuler MD LAB BLOOD ORDERABLES Edited [employer] - Final Performing Organization Address City/[facility] Co de Phone Number [facility] [place] [address] * Thromboelastometry Panel - Fibrinogen (06/12/2024 4:18 PM CATH LAB TECHNOLOGIST) [facility] FIBTEM-A5 12 5 - 16 mm FIBTEM-A10 13 6 - 17 mm [facility] FIBTEM-A20 14 6 - 18 mm [facility] FIBTEM-MCF 14 9 - 19 mm [facility] Blood 06/12/2024 4:18 PM CATH LAB TECHNOLOGIST 06/12/2024 4:30 PM CATH LAB TECHNOLOGIST Zachariah Schuler MD LAB BLOOD ORDERABLES Edited [facility] Performing Organization Address [facility] de Phone Number [facility] [place] [address] * Thromboelastometry Panel - Extrinsic (06/12/2024 4:18 PM CATH LAB TECHNOLOGIST) [facility] EXTEM-CT 55 51 - 73 sec EXTEM-A5 48 33 - 52 mm [facility] EXTEM-A10 58 45 - 62 mm [facility] EXTEM-A20 65 54 - 69 mm [facility] EXTEM-MCF 68 57 - 72 mm [facility] EXTEM-LI60 99 94 - 100 % [facility] EXTEM-ML 2 0 - 6 % [facility] Blood 06/12/2024 4:18 PM CATH LAB TECHNOLOGIST 06/12/2024 4:30 PM CATH LAB TECHNOLOGIST Zachariah Schuler MD LAB BLOOD ORDERABLES Edited [facility] Performing Organization Address [facility] de Phone Number [facility] [place] [address] * eGFR (06/12/2024 4:18 PM CATH LAB TECHNOLOGIST) [facility] eGFR >90 >=60 mL/min/1. 73 m2 [...] last reviewed 2021. Blood 06/12/2024 4:18 PM CATH LAB TECHNOLOGIST 06/12/2024 4:35 PM CATH LAB TECHNOLOGIST us Zachariah Schuler MD LAB BLOOD ORDERABLES Final Re sult [facility] [place] [address] * Differential, auto (06/12/2024 4:18 PM CATH LAB TECHNOLOGIST) Pathologist [facility] Neutrophil abs 3.0 1.5 - 6.5 K/cumm Imm gran abs 0.0 0.0 - 0.1 K/cumm [facility] Lymphocyte abs 2.5 0.8 - 3.3 K/cumm [facility] Monocyte abs 0.5 0.2 - 0.8 K/cumm [facility] Eosinophil abs 0.1 0.0 - 0.5 K/cumm [facility] Basophil abs 0.0 0.0 - 0.1 K/cumm [facility] Neutrophil pct 48.5 % [facility] Comment: Interpretive Data Percent cell count reference ranges are not reported, since discordance with absolute values may lead to misinterpretation of CBC data. Current Interpretive Data was last revised on 2017. Imm gran pct 0.3 % [facility] Comment: Interpretive Data Percent cell count reference ranges are not reported, since discordance with absolute values may lead to misinterpretation of CBC data. Current Interpretive Data was last revised on 2017. Lymphocyte pct 40.9 % [facility] Comment: Interpretive Data Percent cell count reference ranges are not reported, since discordance with absolute values may lead to misinterpretation of CBC data. Current Interpretive Data was last revised on 2017. Monocyte pct 8.2 % [facility] Comment: Interpretive Data Percent cell count reference ranges are not reported, since discordance with absolute values may lead to misinterpretation of CBC data. Current Interpretive Data was last revised on 2017. Eosinophil pct 1.8 % [facility] Comment: Interpretive Data Percent cell count reference ranges are not reported, since discordance with absolute values may lead to misinterpretation of CBC data. Current Interpretive Data was last revised on 2017. Basophil pct 0.3 % [facility] Comment: Interpretive Data Percent cell count reference ranges are not reported, since discordance with absolute values may lead to misinterpretation of CBC data. Current Interpretive Data was last revised on 2017. Blood 06/12/2024 4:18 PM CATH LAB TECHNOLOGIST 06/12/2024 4:35 PM CATH LAB TECHNOLOGIST Zachariah Schuler MD LAB BLOOD ORDERABLES Final Re sult [facility] [place] [address] * (ABNORMAL) CBC with auto differential (06/12/2024 4:18 PM CATH LAB TECHNOLOGIST) WBC 6.1 3.8 - 9.9 K/cumm Hgb 11.8(L) 11.9 - 15.5 g/dL [facility] Hct 36.4 35.6 - 45.5 % [facility] Plt 275 150 - 400 K/cumm [facility] MPV 11.4 9.1 - 12.[address] [facility] RBC 4.25 3.90 - 5.20 M/cumm [facility] MCV 85.6 81.3 - 96.[address] [facility] MCH 27.8 27.1 - 33.[address] [facility] MCHC 32.4 32.3 - 35.7 g/dL [facility] RDW CV 13.0 11.1 - 14.9 % [facility] RDW SD 40.4 35.7 - 48.[address] [facility] NRBC abs 0.00 0.00 - 0.01 K/cumm [facility] Blood (Blood, Venous) 06/12/2024 4:18 PM CATH LAB TECHNOLOGIST 06/12/2024 4:35 PM CATH LAB TECHNOLOGIST Zachariah Schuler MD LAB BLOOD ORDERABLES Final Re sult Performing Organization Address [facility] de Phone Number [facility] [place] [address] * aPTT (06/12/2024 4:18 PM CATH LAB TECHNOLOGIST) aPTT 31 28 - 38 sec Comment: Interpretive Data Heparin therapeutic range: 66.0 - 100.0 seconds. Range based on correlation with therapeutic heparin activity range of 0.3 - 0.7 Units/mL. Current interpretive data was last revised on 2023. Blood 06/12/2024 4:18 PM CATH LAB TECHNOLOGIST 06/12/2024 4:30 PM CATH LAB TECHNOLOGIST Zachariah Schuler MD LAB BLOOD ORDERABLES Final Re sult Performing Organization Address [facility] Co de Phone Number [facility] [place] [address] * Protime-INR (06/12/2024 4:18 PM CATH LAB TECHNOLOGIST) PT 11.8 9.7 - 13.0 sec INR 1.09 0.90 - 1.[address] [facility] Comment: Interpretive data Oral anticoagulant therapeutic ranges: Venous thromboembolism prophylaxis or treatment: 2.0-3.0 CARDIOLOGY Standard range: 2.0-3.0 High-intensity range: 2.5-3.5 Refer to indication-specific guidelines for appropriate target ranges for prosthetic heart valve replacement. Current interpretive data was last revised on 2019. Blood 06/12/2024 4:18 PM CATH LAB TECHNOLOGIST 06/12/2024 4:30 PM CATH LAB TECHNOLOGIST Zachariah Schuler MD LAB BLOOD ORDERABLES Final Re sult Performing Organization Address [facility] de Phone Number [facility] [place] [address] * Blood gas, venous (06/12/2024 4:18 PM CATH LAB TECHNOLOGIST) pH, Venous 7.40 7.32 - 7.43 PCO2, Venous 42 40 - [address] [facility] PO2, Venous [address] [facility] Comment: Interpretive Data No Reference Range Established Current Interpretive Data was last revised on 2017. HCO3 Venous, Calculated 27 20 - 30 mmol/L [facility] BE, venous 1 mmol/L [facility] Comment: Interpretive Data No Reference Range Established Current Interpretive Data was last revised on 2017. Blood 06/12/2024 4:18 PM CATH LAB TECHNOLOGIST 06/12/2024 4:30 PM CATH LAB TECHNOLOGIST Zachariah Schuler MD LAB BLOOD ORDERABLES Final Re sult Performing Organization Address [facility] Co de Phone Number [facility] [place] [address] * Ethanol (06/12/2024 4:18 PM CATH LAB TECHNOLOGIST) Ethanol <10 <=10 mg/dL Comment: Interpretive Data Legal limit of intoxication > or = 80 mg/dL Levels > or = 400 mg/dL are potentially TOXIC. Current interpretive data was last revised on 2018. Blood 06/12/2024 4:18 PM CATH LAB TECHNOLOGIST 06/12/2024 4:35 PM CATH LAB TECHNOLOGIST Zachariah Schuler MD LAB BLOOD ORDERABLES Final Re sult [facility] [place] [address] * (ABNORMAL) Basic metabolic panel (06/12/2024 4:18 PM CATH LAB TECHNOLOGIST) Pathologist [facility] Sodium 140 135 - 145 mmol/L Potassium, pl 4.2 3.3 - 4.9 mmol/L [facility] Comment:Hemolyzed; Potassium value may be falsely elevated by as much as 0.3-0.5 mmol/L. Suggest redraw and reanalysis. Chloride 106 97 - 110 mmol/L [facility] CO2 21(L) 22 - 32 mmol/L [facility] Anion gap 13 2 - 15 mmol/L [facility] BUN 9 6 - 25 mg/dL [facility] Creatinine 0.68 0.60 - 1.10 mg/dL [facility] Glucose 88 70 - 199 mg/dL [facility] Comment: Interpretive Data Fasting glucose [...] 9.3 8.5 - 10.3 mg/dL [facility] Blood 06/12/2024 4:18 PM CATH LAB TECHNOLOGIST 06/12/2024 4:35 PM CATH LAB TECHNOLOGIST Zachariah Schuler MD LAB BLOOD ORDERABLES Final Re sult [facility] [place] [address] from Last 3 Months Insurance [facility] Care Teams Golf Ball Marker Relationship Specialty Start Date End Date Stephanie Miranda MD PCP - General Family Practice 02/05/22 ReferringZuly MD Pediatrics 10/01/18
--- OUTSIDE RECORDS SUMMARY | 2024-07-11 08:10 | XMS_ITS | Encounter Summary ---
Author Organization [facility] Address [address] [place] [id number] Care Team Providers Care Computer Clerk Name Role Phone Unavailable Primary Care Provider Unavailabl e Encounter Details Date Type Department Care Team (Late st Contact Info) Description 07/23/2021 Lab Requisition [facility] Testing [facility] [address] [place] [address] Rudi Diaz MD [address] [place] [address] [place] [address] Social History Tobacco Use Types Packs/Day Years Used Date Smoking Tobacco: Never Assessed Comments Unknown Sex and Gender Information Value Date Recorded Sex Assigned at Not on file Legal Sex Female 11:42 AM CONCAVING MACHINE OPERATOR Gender Identity Not on file Sexual Orientation Not on file documented as of this encounter Plan of Treatment Not on file documented as of this encounter Procedures Procedure Name Priority Date/Time Associated Diagnosis Comments SARS-COV-2 PCR [facility] ONLY Routine 07/23/2021 2:03 PM CONCAVING MACHINE OPERATOR documented in this encounter Visit Diagnoses Not on filedocumented in this encounter
--- OUTSIDE RECORDS SUMMARY | 2024-07-11 08:10 | XMS_ITS | Encounter Summary ---
Author Organization [facility] Address [address] [place] [address] Phone Care Team Providers Care Welt Cutter Name Role Phone Unavailable Primary Care Provider Unavailabl e Reason for Visit * Reason Comments Runny Nose Sore Throat Encounter Details Date Type Department Care Team ([facility] Contact Info) Description 04/13/2024 10:25 AM CDT - 04/13/2024 11:51 AM CDT Emergency [facility] Emergency [address] [place] [address] Discharge Disposition: LWBS Social History Tobacco Use Types Packs/Day Years Used Date Smoking Tobacco: Never Assessed Comments Unknown Sex and Gender Information Value Date Recorded Sex Assigned at Not on file Legal Sex Female 11:42 AM BUSINESS CONTINUITY STRATEGY DIRECTOR Gender Identity Not on file Sexual Orientation [...] Talbot RN - 04/13/2024 11:51 AM CDT Surface Room Shop Optician called stating that pt has left. LWBS. [...] STREP BY PCR (04/13/2024 10:50 AM CDT) [facility] GROUP A STREP BY PCR NOT DETECTED NOT DETECTED 04/13/2024 11:50 AM CDT [facility] Swab SPECIMEN FROM THROAT / Unknown Non-Phlebotomy Collection / Unknown 04/13/2024 10:50 AM CDT 04/13/2024 11:17 AM CDT Ulysses García [facility] MICROBIOLOGY - GENERA L ORDERABLES Final Result [facility] [address] [place] [address] * RSV,SARS-COV-2,INFLUENZA A&B BY PCR (04/13/2024 10:50 AM CDT) Pathologist [facility] FLU A Negative Negative, Error 04/13/2024 12:02 PM CDT [facility] FLU B Negative Negative 04/13/2024 12:02 PM CDT [facility] RESP SYNC VIRUS Negative Negative 12:02 PM CDT [facility] SARSCOV2 NOT DETECTED (Reference Range for this test is Not Detected) 04/13/2024 12:02 PM CDT [facility] Comment:This test was perfor med by a Reverse Cambering Machine Operator PCR Method. Swab NASOPHARYNGEAL SWAB / Unknown Non-Phlebotomy Collection / Unknown 04/13/2024 10:50 AM CDT 04/13/2024 11:17 AM CDT Narrative [facility] - 04/13/2024 12:02 PM CDT This test has not been FDA cleared or approved; the test has been authorized by FDA under an Emergency Use Authorization (EUA) for use by laboratories certified under the CLIA that meet the requirements to perform moderate, high or waived complexity tests. Authorized Fact Sheets about this test for providers and patients are available at: https://www.fda.gov/medical-devices/kqvwivsuw-bdxfknbint-ipfsxks-devices/emergen -us e-authorizations Ulysses García [facility] MICROBIOLOGY - GENERA L ORDERABLES Final Result [facility] [address] [place] [address] documented in this encounter Visit Diagnoses Not on filedocumented in this encounter Additional Health Concerns Infection Onset Date Last Indicated Resolved Time COVID - 19 04/13/2024 04/13/2024 04/13/2024 12:0 2 PM CDT documented as of this encounter
--- OUTSIDE RECORDS SUMMARY | 2024-07-11 08:11 | XMS_ITS | Encounter Summary ---
Author Organization [facility] Healthcare Address [address] [place] [address] Care Team Providers Care Supreme Court Judge Name Role Phone Referring, Unknown MD Unavailable Unavailabl e Referring, Unknown MD Primary Care Provider Unav ailable Reason for Visit * Reason Comments Pelvic Pain Encounter Details Date Type Department Care Team (Late st Contact Info) Description 02/02/2020 2:14 AM CDT - 02/02/2020 6:[address] 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 For concerns or questions, please call: - Friday - Friday, 8:30 am - 4:00 pm: [phone] - After Hours/Weekends: [phone] [facility] Outpatient Health - FITNESS CONSULTANT Clinic [address] [place] [address], [address], [place] [address] Friday - Friday, 8:30a.m.-4:30 p.m. * Attachments The following attachments cannot be sent through Care Everywhere. * Ovarian Cyst (AfterCare(R) Instructions(ER/ED)) (Azerbaijani) documented in this encounter Discharge Disposition Disposition Code Departure Means Destination Discharge to home or self care documented in this encounter Consult Notes * Luna Rousseau MD - 02/02/2020 4:39 AM CDTAssociated Order(s): IP CONSULT TO FITNESS CONSULTANT Images from the original note were not included. [facility] ED2/ED2 Call back number: [phone] Pelvic bed: Yes CC: pelvic pain HPI: [...] 1 year ago where she went to [place] and was told she had bilateralovarian cysts that had ruptured. She was discharged with some pain medication and told to follow-upoutpatient. She does not have a primary OB-TUBE DEPATCHER. Past Medical History: Diagnosis Date ??? Asthma ??? Bilateral ovarian cysts ??? Hyperlipidemia History reviewed. No pertinent surgical history. OB History 0 Para 0 Term 0 0 AB 0 Living 0 SAB 0 TAB 0 Ectopic 0 Multiple 0 Live Births 0 TUBE DEPATCHER History: Patient's last menstrual period was 01/06/2020. [...] follicles visualized on right ovary in possible [id number] configuration, but patient reports regular monthly cycles and has no evidence of hirsutism on exam - discussed medical management with combined oral contraception; patient would like to consider further; she has no history of migraines; reported being a non- smoker to this provider (though chart documents current someday smoker ); has no history of hypertension - tasked for follow-up in [facility] clinic Phone number for follow up: [phone] Go overnight. Luna Rousseau [...] outpatient follow up to establish care with TUBE DEPATCHER. Malini Go DO, MA Family Planning Fellow [...] ??? Not on file Works at a [employer]. Review of Systems Review of Systems Constitutional: [...] and patient amenable. Will follow up with CHAIRMAN & CHIEF EXECUTIVE OFFICER outpatient. MDM Attending Summary of Care ED [...] Varun Guzman MD ECG ORDERABLES Final Result [facility] * POCT hCG, urine (02/02/2020 3:40 AM CDT) HCG, ur, POC Negative Lot Number [id number] QC Backgroud Clear Acceptable QC Control Line Acceptable Urine 02/02/2020 3:40 AM CDT Varun Guzman MD POINT OF CARE TE ST ORDERABLES Final Result * (ABNORMAL) Urinalysis, microscopic only (02/02/2020 3:33 AM CDT) WBC, ur 0-5 0 - 5 /HPF [facility] RBC, ur 0-2 0 - 2 /HPF [facility] Epithelial cells, squamous, ur 1-5 0 - 5 /HPF [facility] Bacteria, ur Trace(A) [facility] Mucous, ur Present(A) [facility] Culture Reflex Comment Reflex conditions for urine culture (WBC >10) not met. [facility] Urine 02/02/2020 3:33 AM CDT 02/02/2020 3:42 AM CDT Varun Guzman MD LAB URINE ORDERA BLES Final Result [facility] Department [place] [address] * (ABNORMAL) Urinalysis reflex to microscopic and culture Urine (02/02/2020 3:33 AM CDT) Color, ur Yellow Yellow [facility] Clarity, ur Cloudy(A) Clear [facility] Specific gravity, ur 1.023 1.010 - 1.025 [facility] pH, urine 6 [facility] Protein, ur ql 1+(A) Negative [facility] Glucose, ur ql Negative Negative [facility] Ketones, ur Negative Negative [facility] Bilirubin, ur Negative Negative [facility] Blood, ur Negative Negative [facility] Urobilinogen, ur 2.0(A) <2.0 mg/dL [facility] Nitrite, ur Negative Negative [facility] Leukocyte esterase, ur Negative Negative [facility] UA reflex comment Reflex to microscopic UA will be performed. [facility] Urine 02/02/2020 3:33 AM CDT 02/02/2020 3:42 AM CDT Narrative [facility] - 02/02/2020 3:51 AM CDT THE [facility] COLLECTION LOCATION IS [facility] ED2-22 Urine pH is affected by diet, medications, systemic acid-base disturbances, and renal tubular function. ??pH may affect urinary stone formation. ??For example, urine pH below 6.0 may help reduce the tendency for calcium phosphate stones and pH greater than 6.0 may reduce the tendency for uric acid stone formation. Source: [employer]. Last revised 07-24-2017 us Varun Guzman MD LAB MICROBIOLOGY - GENERAL ORDERABLES Final Result [facility] Department [place] [address] * Troponin I (02/02/2020 1:44 AM CDT) Troponin I <0.03 0.00 - 0.03 ng/mL [facility] Comment: Interpretive Data: Normal plasma Troponin I [...] for Troponin assay. References: 1. Clin Chem 2013;[id number] 2. Journal of the [place] College of Cardiology 2012;60:[id number] Current Interpretive Data Last Revised Date: 2018. Blood specimen (specimen) 02/02/2020 1:44 AM CDT 02/02/2020 2:01 AM CDT us Notinfile Unknown LAB BLOOD ORDERABLES Final Res ult [facility] Department [place] [address] * (ABNORMAL) Differential, auto (02/02/2020 1:44 AM CDT) Neutrophil abs 3.1 1.7 - 6.5 K/cumm [facility] Imm gran abs 0.0 0.0 - 0.1 K/cumm [facility] Lymphocyte abs 4.8(H) 0.8 - 3.3 K/cumm [facility] Monocyte abs 0.7 0.2 - 0.8 K/cumm [facility] Eosinophil abs 0.1 0.0 - 0.5 K/cumm [facility] Basophil abs 0.0 0.0 - 0.1 K/cumm [facility] Neutrophil pct 35.1 % [facility] Comment: Interpretive Data Percent cell count reference ranges are not reported, since discordance with absolute values may lead to misinterpretation of CBC data. Current Interpretive Data was last revised on 2017. Imm gran pct 0.1 % [facility] Comment: Interpretive Data Percent cell count reference ranges are not reported, since discordance with absolute values may lead to misinterpretation of CBC data. Current Interpretive Data was last revised on 2017. Lymphocyte pct 55.0 % [facility] Comment: Interpretive Data Percent cell count reference ranges are not reported, since discordance with absolute values may lead to misinterpretation of CBC data. Current Interpretive Data was last revised on 2017. Monocyte pct 8.4 % [facility] Comment: Interpretive Data Percent cell count reference ranges are not reported, since discordance with absolute values may lead to misinterpretation of CBC data. Current Interpretive Data was last revised on 2017. Eosinophil pct 1.1 % [facility] Comment: Interpretive Data Percent cell count reference ranges are not reported, since discordance with absolute values may lead to misinterpretation of CBC data. Current Interpretive Data was last revised on 2017. Basophil pct 0.3 % [facility] Comment: Interpretive Data Percent cell count reference ranges are not reported, since discordance with absolute values may lead to misinterpretation of CBC data. Current Interpretive Data was last revised on 2017. Blood specimen (specimen) 02/02/2020 1:44 AM CDT 02/02/2020 2:01 AM CDT Sanjuana ZAVALA LAB BLOOD ORDERABLES Final Result [facility] [place] [address] * Basic metabolic panel (02/02/2020 1:44 AM CDT) Sodium 141 135 - 145 mmol/L [facility] Potassium, pl 4.0 3.3 - 4.9 mmol/L [facility] Chloride 106 97 - 110 mmol/L [facility] CO2 25 22 - 32 mmol/L [facility] Anion gap 10 2 - 15 mmol/L [facility] BUN 9 8 - 25 mg/dL [facility] Creatinine 1.01 0.60 - 1.10 mg/dL [facility] Glucose 95 70 - 199 mg/dL [facility] Comment: Interpretive Data Fasting glucose >/= 126 [...] 2017. Calcium 9.9 8.5 - 10.3 mg/dL [facility] Blood specimen (specimen) 02/02/2020 1:44 AM CDT 02/02/2020 2:01 AM CDT Narrative [facility] - 02/02/2020 2:26 AM CDT THE COLLECTION LOCATION IS Sanjuana ZAVALA LAB BLOOD ORDERABLES Final Result Performing Organization Address City/[facility] Co de Phone Number [facility] [place] [address] * CBC with auto differential (02/02/2020 1:44 AM CDT) WBC 8.7 3.8 - 9.9 K/cumm [facility] Hgb 12.4 11.9 - 15.5 g/dL [facility] Hct 38.3 35.6 - 45.5 % [facility] Plt 267 150 - 400 K/cumm [facility] MPV 11.9 9.1 - 12.3 fL [facility] RBC 4.49 3.90 - 5.20 M/cumm [facility] MCV 85.3 81.3 - 96.4 fL [facility] MCH 27.6 27.1 - 33.3 pg [facility] MCHC 32.4 32.3 - 35.7 g/dL [facility] RDW CV 13.4 11.1 - 14.9 % [facility] RDW SD 41.7 35.7 - 48.1 fL [facility] NRBC abs 0.00 0.00 - 0.01 K/cumm [facility] Blood specimen (specimen) 02/02/2020 1:44 AM CDT 02/02/2020 2:01 AM CDT Narrative [facility] - 02/02/2020 2:06 AM CDT THE COLLECTION LOCATION IS Sanjuana ZAVALA LAB BLOOD ORDERABLES Final Result [facility] [place] [address] documented in this encounter Visit Diagnoses Diagnosis [...] First Orde red Date IP CONSULT TO FITNESS CONSULTANT 1 02/02/2020 documented in this encounter Care Teams Supreme Court Judge Relationship Specialty Start Date End Date Referring, Unknown, PCP - General 02/01/20 02/04/22 Referring, Unknown, Pediatrics 10/01/18 documented as of this encounter
--- OUTSIDE RECORDS SUMMARY | 2024-07-11 08:11 | XMS_ITS | Encounter Summary ---
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
--- OUTSIDE RECORDS SUMMARY | 2024-07-11 08:11 | XMS_ITS | Encounter Summary ---
Author Organization [facility] Address [address] [id number] Care Team Providers Care Cafeteria Server Name Role Phone Referring, Unknown Stephanie Pimentel MD Primary Care Provider Reason for Visit * Reason Comments Establish Care Patient is a new to this practice patient and is here to establish care. Patient reports her counselor wants her to get a psych recommendation. 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 Mindfulness Consider Mindfulness (self-guided meditation, self-awareness exercises). Doing 15-30 minutes of mindfulness a few days a week has been shown to significantly improve anxiety and depression scores. [employer] Mindfulness and free you can find several good resources. [facility] [employer] and [employer] have[employer]ite with links to some good starting resource. Programs like [employer] and [employer] offer resourcesfor a fee. I suggest trying [...] health care team are hereto support you. [place] Suicide Prevention Lifeline 7-056-810-TALK ( ) or 986 A skilled, trained counselor in your are is available you are 24 hours a day 7 days a week to talk.If you feel in a crisis, whether or not you are thinking of hurting yourself, and need to talk please consider calling the Lifeline. All calls are confidential and FREE Other resources available: National [place] of Mental Health www.nimh.nih.gov [place] [employer] www.psych.org * Attachments The following attachments cannot be sent through Care Everywhere. * Gastroesophageal Reflux Disease (Band Director) (Botswanan) documented in this encounter Ordered Prescriptions Prescription [...] seen PCP in about 3 yrs. Has patternmaker helper Asthma - untreated. Notes frequent dyspnea on [...] ORDERABLES F inal Result Performing Organization Address [facility]/ZIP Co de Phone Number STEVIE [address] [email or web address] [address] * Lipase (02/11/2022 11:34 AM CDT) Lipase 22 10 - 99 Units/L [facility] Blood 02/11/2022 11:3 4 AM CDT 02/11/2022 6:37 PM CDT Stephanie Norris MD LAB BLOOD ORDERABLES F inal Result Performing Organization Address [facility]/ZIP Co de Phone Number STEVIE [address] [address] Department [place] [employer] [place] [address] * (ABNORMAL) Iron profile w/ IBC (02/11/2022 11:34 AM CDT) Iron 126 35 - 145 mcg/dl [facility] TIBC 451(H) 250 - 400 mcg/dL [facility] Transferrin saturation 28 20 - 50 % [facility] Blood 02/11/2022 11:3 4 AM CDT 02/11/2022 6:37 PM CDT Stephanie Norris MD LAB BLOOD ORDERABLES F inal Result Performing Organization Address City/[facility]/ZIP Co de Phone Number STEVIE [place]IGAN [address] [address] [employer] [place], [place] [id number] * TSH reflex to free T4 (02/11/2022 11:34 AM CDT) TSH 1.21 0.30 - 4.20 mcIUnit/mL [facility] Blood 02/11/2022 11:3 4 AM CDT 02/11/2022 6:37 PM CDT Stephanie Norris MD LAB BLOOD ORDERABLES F inal Result Performing Organization Address [facility] de Phone Number STEVIE [place]IGAN [address] [address] Department [place] [employer] [place] [address] * (ABNORMAL) Comprehensive metabolic panel (02/11/2022 11:34 [...] BLOOD [place]AB[place] [address] [address] [place] [address] * (ABNORMAL) CBC with auto differential (02/11/2022 [...] LAB BLOOD ORDERABLES F inal Result STEVIE [address] [facility] Department [place] [address] documented in this encounter Visit Diagnoses Diagnosis [...] needed added in this encounter Care Teams Cafeteria Server Relationship Specialty Start Date End Date Stephanie Norris MD PCP - General Family Practice 02/05/22 Referring, MD [facility] 10/01/18 documented as of this encounter
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
--- OUTSIDE RECORDS SUMMARY | 2024-07-11 08:11 | XMS_ITS | Encounter Summary ---
Author Organization [facility] Healthcare Address [address] [place] [address] Care Team Providers Care Multiple Coil Winder Name Role Phone Referring, Unknown Stephanie Pimentel MD Primary Care Provider Encounter Details Date Type Department Care Team (Late st Contact Info) Description 02/11/2022 6:30 PM CDT Lab [address] [phone] Indigestion; Nausea and vomiting, unspecified vomiting type; [...] on file Legal Sex Female 5:18 AM COMPLIANCE SPEC Gender Identity Not on file Sexual Orientation [...] Results * eGFR (02/11/2022 11:34 AM CDT) [facility] eGFR 127 mL/min/1. 73 m2 STEVIE [...] MD LAB BLOOD ORDERABLES F inal Result [facility] [address] Department [place] [address] * Differential, auto (02/11/2022 11:34 AM CDT) Neutrophil abs 3.7 1.7 - 6.5 K/cumm [facility] gran abs 0.0 0.0 - 0.1 K/cumm [facility] Lymphocyte abs 3.3 0.8 - 3.3 K/cumm [facility] Monocyte abs 0.7 0.2 - 0.8 K/cumm [facility] Eosinophil abs 0.1 0.0 - 0.5 K/cumm [facility] Basophil abs 0.0 0.0 - 0.1 K/cumm [facility] Neutrophil pct 47.0 % [facility] Comment: Interpretive Data Percent cell count reference ranges are not reported, since discordance with absolute values may lead to misinterpretation of CBC data. Current Interpretive Data was last revised on 2017. Imm gran pct 0.3 % [facility] Comment: Interpretive Data Percent cell count reference ranges are not reported, since discordance with absolute values may lead to misinterpretation of CBC data. Current Interpretive Data was last revised on 2017. Lymphocyte pct 42.2 % [facility] Comment: Interpretive Data Percent cell count reference ranges are not reported, since discordance with absolute values may lead to misinterpretation of CBC data. Current Interpretive Data was last revised on 2017. Monocyte pct 8.8 % [facility] Comment: Interpretive Data Percent cell count reference ranges are not reported, since discordance with absolute values may lead to misinterpretation of CBC data. Current Interpretive Data was last revised on 2017. Eosinophil pct 1.3 % [facility] Comment: Interpretive Data Percent cell count reference ranges are not reported, since discordance with absolute values may lead to misinterpretation of CBC data. Current Interpretive Data was last revised on 2017. Basophil pct 0.4 % [facility] Comment: Interpretive Data Percent cell count reference ranges are not reported, since discordance with absolute values may lead to misinterpretation of CBC data. Current Interpretive Data was last revised on 2017. Blood 02/11/2022 11:3 4 AM CDT 02/11/2022 6:37 PM CDT Stephanie Miranda MD LAB BLOOD ORDERABLES F inal Result [facility] [address] Department [place] [address] * (ABNORMAL) CBC with auto differential (02/11/2022 11:34 AM CDT) WBC 7.8 3.8 - 9.9 K/cumm [facility] Hgb 10.9(L) 11.9 - 15.5 g/dL [facility] Hct 36.9 35.6 - 45.5 % [facility] Plt 316 150 - 400 K/cumm [facility] MPV 12.7(H) 9.1 - 12.3 fL [facility] RBC 4.36 3.90 - 5.20 M/cumm [facility] MCV 84.6 81.3 - 96.4 fL [facility] MCH 25.0(L) 27.1 - 33.3 pg [facility] MCHC 29.5(L) 32.3 - 35.7 g/dL [facility] RDW CV 17.2(H) 11.1 - 14.9 % [facility] RDW SD 53.2(H) 35.7 - 48.1 fL [facility] NRBC abs 0.00 0.00 - 0.01 K/cumm [facility] Blood 02/11/2022 11:3 4 AM CDT 02/11/2022 6:37 PM CDT Stephanie Miranda MD LAB [place]LOOD [place] [address] Department [place] [address] * (ABNORMAL) Comprehensive metabolic panel (02/11/2022 11:34 [...] ORDERABLES F inal Result Performing Organization Address City/[facility]/ZIP Co de Phone Number STEVIE MILLIGAN [address] [place] [address] * TSH reflex to free T4 (02/11/2022 11:34 AM CDT) TSH 1.21 0.30 - 4.20 mcIUnit/mL [facility] Blood 02/11/2022 11:3 4 AM CDT 02/11/2022 6:37 PM CDT Stephanie Miranda MD LAB BLOOD ORDERABLES F inal Result Performing Organization Address [facility] Co de Phone Number STEVIE MILLIGAN [address] [place] [address] * (ABNORMAL) Iron profile w/ IBC (02/11/2022 11:34 AM CDT) Iron 126 35 - 145 mcg/dl [facility] TIBC 451(H) 250 - 400 mcg/dL [facility] Transferrin saturation 28 20 - 50 % [facility] Blood 02/11/2022 11:3 4 AM CDT 02/11/2022 6:37 PM CDT Stephanie Miranda MD LAB BLOOD ORDERABLES F inal Result Performing Organization Address City/[facility] Co de Phone Number STEVIE MILLIGAN [phone] [place] [address] * Lipase (02/11/2022 11:34 AM CDT) Lipase 22 10 - 99 Units/L [facility] Blood 02/11/2022 11:3 4 AM CDT 02/11/2022 6:37 PM CDT us Stephanie Miranda MD LAB BLOOD ORDERABLES F inal Result Performing Organization Address [facility] Co de Phone Number STEVIE MILLIGAN [address] [place] [address] * CRP (acute phase) (02/11/2022 11:34 AM CDT) CRP 4.3 <=10.0 mg/L [facility] Blood 02/11/2022 11:3 4 AM CDT 02/11/2022 6:37 PM CDT us Stephanie Miranda MD LAB BLOOD ORDERABLES F inal Result Performing Organization Address [facility] de Phone Number STEVIE MILLIGAN [address] [place] [address] documented in this encounter Visit Diagnoses Diagnosis Indigestion Dyspepsia and other specified disorders of function of stomach Nausea and vomiting, unspecified vomiting type Iron deficiency anemia due to chronic blood loss Iron deficiency anemia secondary to blood loss (chronic) documented in this encounter Care Teams Multiple Coil Winder Relationship Specialty Start Date End Date Stephanie Miranda MD PCP - General Family Practice 02/05/22 Referring, MD [facility] 10/01/18 documented as of this encounter
--- OUTSIDE RECORDS SUMMARY | 2024-07-11 08:11 | XMS_ITS | Encounter Summary ---
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
--- OUTSIDE RECORDS SUMMARY | 2024-07-11 08:11 | XMS_ITS | Referral Summary ---
Author Organization [facility] [address] [facility] Address [address] [place] [address] Care Team Providers Care Jacquard Card Lacer Name Role Phone Referring, Unknown Stephanie Pimentel MD Primary Care Provider Encounters Date Type Department Care Team Description 06/12/2024 4:06 PM LAST WAXER - 06/12/2024 6:06 PM LAST WAXER Emergency [facility] Emergency Department [address] [place] [id number] Zachariah Schuler MD Right hand pain (Primary [...] on file Legal Sex Female 5:18 AM LAST WAXER Gender Identity Not on file Sexual Orientation Not on file Last Filed Vital Signs Vital Sign Reading Time Taken Comments Blood Pressure 140/89 06/12/2024 5:53 PM LAST WAXER Pulse 68 06/12/2024 5:53 PM LAST WAXER Temperature 36.8 ??C (98.3 ??F) 06/12/2024 4:18 PM CS T Respiratory Rate 20 06/12/2024 5:53 PM LAST WAXER Oxygen Saturation 100% 06/12/2024 5:53 PM LAST WAXER Inhaled Oxygen Concentration - - Weight 106.6 kg (235 lb) 06/12/2024 4:23 PM LAST WAXER Height 172.7 cm (5' 8 ) 06/12/2024 4:23 PM LAST WAXER Body Mass Index 35.73 06/12/2024 4:23 PM LAST WAXER Plan of Treatment Not on file Procedures Procedure Name Priority Date/Time Associated Diagnosis Comments XR WRIST RIGHT 3 OR MORE VIEWS ED Urgent/IP Urgent 06/12/2024 5:04 PM LAST WAXER XR HAND RIGHT 3 OR MORE VIEWS ED 06/12/2024 5:04 PM LAST WAXER XR HAND LEFT 3 OR MORE VIEWS ED 06/12/2024 5:[address] HEAD AND CERVICAL SPINE WO CONTRAST ED 06/12/2024 5:02 PM LAST WAXER POCT LACTATE - DEVICE Routine 06/12/2024 4:34 PM LAST WAXER POC BLOOD GAS AND CHEMISTRIES, ARTERIAL Routine 06/12/2024 4:31 PM LAST WAXER XR CHEST 1 VIEW ED 06/12/2024 4:29 PM LAST WAXER XR PELVIS 1 OR 2 VIEWS ED Urgent/IP Urgent 06/12/2024 4:29 PM LAST WAXER THROMBOELASTOMETRY PANEL - EXTRINSIC STAT 06/12/2024 4:18 PM LAST WAXER THROMBOELASTOMETRY PANEL - HEPARIN STAT 06/12/2024 4:18 PM LAST WAXER THROMBOELASTOMETRY PANEL - INTRINSIC STAT 06/12/2024 4:18 PM LAST WAXER THROMBOELASTOMETRY PANEL - FIBRINOGEN STAT 06/12/2024 4:18 PM LAST WAXER EGFR STAT 06/12/2024 4:18 PM LAST WAXER DIFFERENTIAL AUTO STAT 06/12/2024 4:1 8 PM LAST WAXER BASIC METABOLIC PANEL STAT 06/12/2024 4:18 PM LAST WAXER THROMBOELASTOMETRY PANEL STAT 024 4:18 PM LAST WAXER PROTIME-INR STAT 06/12/2024 4:18 PM LAST WAXER APTT STAT 06/12/2024 4:18 PM LAST WAXER ETHANOL STAT 06/12/2024 4:18 PM LAST WAXER CBC WITH AUTO DIFFERENTIAL STAT 06/12/2024 4:18 PM LAST WAXER BLOOD GAS, VENOUS STAT 06/12/2024 4:1 8 PM LAST WAXER from Last 3 Months Results * XR Wrist Right 3 or More Views (06/12/2024 5:04 PM LAST WAXER) Anatomical Region Laterality Modality Upper Extremities, Wrist Right Compute d Radiography 06/12/2024 5:11 PM LAST WAXER Impressions 06/12/2024 5:18 PM LAST WAXER 1. ??No acute fracture of the right hand or wrist. 2. ??No acute fracture of the left hand. Dictated by: Olayinka Connor MD The radiology attending physician has personally reviewed this study, and had reviewed and/or edited this written report and agrees with it. Electronically signed by: Billy Apodaca M.D. Narrative 06/12/2024 5:18 PM LAST WAXER EXAMINATION: XR HAND LEFT 3 OR MORE [...] 3 or More Views (06/12/2024 5:04 PM LAST WAXER) Anatomical Region Laterality Modality Upper Extremities, Hand Right Computed Radiography 06/12/2024 5:11 PM LAST WAXER Impressions 06/12/2024 5:18 PM LAST WAXER 1. ??No acute fracture of the right hand or wrist. 2. ??No acute fracture of the left hand. Dictated by: Olayinka Connor MD The radiology attending physician has personally reviewed this study, and had reviewed and/or edited this written report and agrees with it. Electronically signed by: Billy Apodaca M.D. Narrative 06/12/2024 5:18 PM LAST WAXER EXAMINATION: XR HAND LEFT 3 OR MORE [...] 3 or More Views (06/12/2024 5:04 PM LAST WAXER) Anatomical Region Laterality Modality Upper Extremities, Hand Left Computed Radiography 06/12/2024 5:11 PM LAST WAXER Impressions 06/12/2024 5:18 PM LAST WAXER 1. ??No acute fracture of the right hand or wrist. 2. ??No acute fracture of the left hand. Dictated by: Olayinka Connor MD The radiology attending physician has personally reviewed this study, and had reviewed and/or edited this written report and agrees with it. Electronically signed by: Billy Apodaca M.D. Narrative 06/12/2024 5:18 PM LAST WAXER EXAMINATION: XR HAND LEFT 3 OR MORE [...] Cervical Spine WO Contrast (06/12/2024 5:02 PM LAST WAXER) Anatomical Region Laterality Modality Head and Neck N/A Computed Tomogra phy 06/12/2024 5:10 PM LAST WAXER Impressions 06/12/2024 5:13 PM LAST WAXER 1. No acute intracranial process. 2. No evidence of acute fracture in the cervical spine. Dictated by: George Harris MD The radiology attending physician has personally reviewed this study, and had reviewed and/or edited this written report and agrees with it. Electronically signed by: Melissa Sparks MD Narrative 06/12/2024 5:13 PM LAST WAXER EXAMINATION: 1. CT head without contrast 2. [...] * (ABNORMAL) POCT lactate (06/12/2024 4:34 PM LAST WAXER) [facility] Lactate POC i-STAT 0.6(L) 0.7 - 2.2 mmol/L Blood 06/12/2024 4:34 PM LAST WAXER 06/12/2024 4:34 PM LAST WAXER Zachariah Schuler MD LAB POCT ORDERABLES - DEVICE Final Result Performing Organization Address [facility] Co de Phone Number [facility] Department [place] [employer] [address] * POC Blood Gas and Chemistries, Arterial - (06/12/2024 4:31 PM LAST WAXER) [facility] Hct, POC 37.0 36.3 - 45.3 % Total Hb, POC 12.2 11.9 - 15.5 g/dL [facility] Blood 06/12/2024 4:31 PM LAST WAXER 06/12/2024 4:31 PM LAST WAXER Zachariah Schuler MD LAB POCT ORDERABLES - DEVICE Final Result Performing Organization Address [facility] de Phone Number [facility] [place] [address] * XR Chest 1 Vw Portable (06/12/2024 4:29 PM LAST WAXER) Anatomical Region Laterality Modality Body, Chest N/A Computed Radiogr aphy 06/12/2024 5:04 PM LAST WAXER Impressions 06/12/2024 5:07 PM LAST WAXER CHEST: No prior radiographs available for comparison. [...] Billy Apodaca M.D. Narrative 06/12/2024 5:07 PM LAST WAXER EXAMINATION: XR PELVIS 1 OR 2 VIEWS, [...] 1 or 2 Views (06/12/2024 4:29 PM LAST WAXER) Anatomical Region Laterality Modality Body, Pelvis N/A Computed Radiogr aphy 06/12/2024 5:04 PM LAST WAXER Impressions 06/12/2024 5:07 PM LAST WAXER CHEST: No prior radiographs available for comparison. [...] Billy Apodaca M.D. Narrative 06/12/2024 5:07 PM LAST WAXER EXAMINATION: XR PELVIS 1 OR 2 VIEWS, [...] Thromboelastometry Panel - Heparin (06/12/2024 4:18 PM LAST WAXER) HEPTEM-CT 179 141 - 215 sec HEPTEM-A5 48 33 - 51 mm [facility] HEPTEM-A10 58 44 - 61 mm [facility] HEPTEM-A20 63 52 - 67 mm [facility] HEPTEM-MCF 64 54 - 69 mm [facility] Blood 06/12/2024 4:18 PM LAST WAXER 06/12/2024 4:30 PM LAST WAXER Zachariah Schuler MD LAB BLOOD ORDERABLES Edited R esult - Final [facility] Department [place] [address] * Thromboelastometry Panel - Intrinsic (06/12/2024 4:18 PM LAST WAXER) INTEM-CT 178 139 - 205 sec INTEM-A5 48 36 - 54 mm [facility] INTEM-A10 58 46 - 63 mm [facility] INTEM-A20 63 53 - 68 mm [facility] INTEM-MCF 64 55 - 70 mm [facility] INTEM-LI60 96 93 - 100 % [facility] INTEM-ML 6 0 - 7 % [facility] Blood 06/12/2024 4:18 PM LAST WAXER 06/12/2024 4:30 PM LAST WAXER Zachariah Schuler MD LAB BLOOD ORDERABLES Edited R Dobns Agencyult - Final Performing Organization Address [facility] Co de Phone Number [facility] [place] [address] * Thromboelastometry Panel - Fibrinogen (06/12/2024 4:18 PM LAST WAXER) FIBTEM-A5 12 5 - 16 mm FIBTEM-A10 13 6 - 17 mm [facility] FIBTEM-A20 14 6 - 18 mm [facility] FIBTEM-MCF 14 9 - 19 mm [facility] Blood 06/12/2024 4:18 PM LAST WAXER 06/12/2024 4:30 PM LAST WAXER Zachariah Schuler MD LAB BLOOD ORDERABLES Edited R ison furniture Performing Organization Address [facility] de Phone Number [facility] [place] [employer] [address] * Thromboelastometry Panel - Extrinsic (06/12/2024 4:18 PM LAST WAXER) EXTEM-CT 55 51 - 73 sec EXTEM-A5 48 33 - 52 mm [facility] EXTEM-A10 58 45 - 62 mm [facility] EXTEM-A20 65 54 - 69 mm [facility] EXTEM-MCF 68 57 - 72 mm [facility] EXTEM-LI60 99 94 - 100 % [facility] EXTEM-ML 2 0 - 6 % [facility] Blood 06/12/2024 4:18 PM LAST WAXER 06/12/2024 4:30 PM LAST WAXER Zachariah Schuler MD LAB BLOOD ORDERABLES Edited R esult - Final Performing Organization Address [facility] Co de Phone Number [facility] Department [place] [address] * eGFR (06/12/2024 4:18 PM LAST WAXER) eGFR >90 >=60 mL/min/1. 73 m2 Comment: [...] last reviewed 2021. Blood 06/12/2024 4:18 PM LAST WAXER 06/12/2024 4:35 PM LAST WAXER us Zachariah Schuler MD LAB BLOOD ORDERABLES Final Re sult Performing Organization Address [facility] Co de Phone Number [facility] Department [place] [address] * Differential, auto (06/12/2024 4:18 PM LAST WAXER) Neutrophil abs 3.0 1.5 - 6.5 K/cumm Imm gran abs 0.0 0.0 - 0.1 K/cumm [facility] Lymphocyte abs 2.5 0.8 - 3.3 K/cumm [facility] Monocyte abs 0.5 0.2 - 0.8 K/cumm [facility] Eosinophil abs 0.1 0.0 - 0.5 K/cumm [facility] Basophil abs 0.0 0.0 - 0.1 K/cumm [facility] Neutrophil pct 48.5 % [facility] Comment: Interpretive Data Percent cell count reference ranges are not reported, since discordance with absolute values may lead to misinterpretation of CBC data. Current Interpretive Data was last revised on 2017. Imm gran pct 0.3 % [facility] Comment: Interpretive Data Percent cell count reference ranges are not reported, since discordance with absolute values may lead to misinterpretation of CBC data. Current Interpretive Data was last revised on 2017. Lymphocyte pct 40.9 % [facility] Comment: Interpretive Data Percent cell count reference ranges are not reported, since discordance with absolute values may lead to misinterpretation of CBC data. Current Interpretive Data was last revised on 2017. Monocyte pct 8.2 % [facility] Comment: Interpretive Data Percent cell count reference ranges are not reported, since discordance with absolute values may lead to misinterpretation of CBC data. Current Interpretive Data was last revised on 2017. Eosinophil pct 1.8 % [facility] Comment: Interpretive Data Percent cell count reference ranges are not reported, since discordance with absolute values may lead to misinterpretation of CBC data. Current Interpretive Data was last revised on 2017. Basophil pct 0.3 % [facility] Comment: Interpretive Data Percent cell count reference ranges are not reported, since discordance with absolute values may lead to misinterpretation of CBC data. Current Interpretive Data was last revised on 2017. Blood 06/12/2024 4:18 PM LAST WAXER 06/12/2024 4:35 PM LAST WAXER Zachariah Schuler MD LAB BLOOD ORDERABLES Final Re sult Performing Organization Address [facility] Co de Phone Number [facility] Department [place] [address] * (ABNORMAL) CBC with auto differential (06/12/2024 4:18 PM LAST WAXER) [facility] WBC 6.1 3.8 - 9.9 K/cumm Hgb 11.8(L) 11.9 - 15.5 g/dL [facility] Hct 36.4 35.6 - 45.5 % [facility] Plt 275 150 - 400 K/cumm [facility] MPV 11.4 9.1 - 12.3 fL [facility] RBC 4.25 3.90 - 5.20 M/cumm [facility] MCV 85.6 81.3 - 96.4 fL [facility] MCH 27.8 27.1 - 33.3 pg [facility] MCHC 32.4 32.3 - 35.7 g/dL [facility] RDW CV 13.0 11.1 - 14.9 % [facility] RDW SD 40.4 35.7 - 48.1 fL [facility] NRBC abs 0.00 0.00 - 0.01 K/cumm [facility] Blood (Blood, Venous) 06/12/2024 4:18 PM LAST WAXER 06/12/2024 4:35 PM LAST WAXER Zachariah Schuler MD LAB BLOOD ORDERABLES Final Re sult Performing Organization Address [facility] Co de Phone Number [facility] Department [place] [address] * aPTT (06/12/2024 4:18 PM LAST WAXER) [facility] aPTT 31 28 - 38 sec Comment: Interpretive Data Heparin therapeutic range: 66.0 - 100.0 seconds. Range based on correlation with therapeutic heparin activity range of 0.3 - 0.7 Units/mL. Current interpretive data was last revised on 2023. Blood 06/12/2024 4:18 PM LAST WAXER 06/12/2024 4:30 PM LAST WAXER Zachariah Schuler MD LAB BLOOD ORDERABLES Final Re sult Performing Organization Address [facility] de Phone Number [facility] [place] [address] * Protime-INR (06/12/2024 4:18 PM LAST WAXER) PT 11.8 9.7 - 13.0 sec INR 1.09 0.90 - 1.20 [facility] Comment: Interpretive data Oral anticoagulant therapeutic ranges: Venous thromboembolism prophylaxis or treatment: 2.0-3.0 CARDIOLOGY Standard range: 2.0-3.0 High-intensity range: 2.5-3.5 Refer to indication-specific guidelines for appropriate target ranges for prosthetic heart valve replacement. Current interpretive data was last revised on 2019. Blood 06/12/2024 4:18 PM LAST WAXER 06/12/2024 4:30 PM LAST WAXER Result [facility] Zachariah Schuler MD LAB BLOOD ORDERABLES Final Re sult Performing Organization Address [facility] de Phone Number [facility] [place] [address] * Blood gas, venous (06/12/2024 4:18 PM LAST WAXER) pH, Venous 7.40 7.32 - 7.43 PCO2, Venous 42 40 - 50 mmHg [facility] PO2, Venous 59 mmHg [facility] Comment: Interpretive Data No Reference Range Established Current Interpretive Data was last revised on 2017. HCO3 Venous, Calculated 27 20 - 30 mmol/L [facility] BE, venous 1 mmol/L [facility] Comment: Interpretive Data No Reference Range Established Current Interpretive Data was last revised on 2017. Blood 06/12/2024 4:18 PM LAST WAXER 06/12/2024 4:30 PM LAST WAXER us Zachariah Schuler MD LAB BLOOD ORDERABLES Final Re sult Performing Organization Address [facility] Co de Phone Number [facility] [place] [address] * Ethanol (06/12/2024 4:18 PM LAST WAXER) Ethanol <10 <=10 mg/dL Comment: Interpretive Data Legal limit of intoxication > or = 80 mg/dL Levels > or = 400 mg/dL are potentially TOXIC. Current interpretive data was last revised on 2018. Blood 06/12/2024 4:18 PM LAST WAXER 06/12/2024 4:35 PM LAST WAXER Zachariah Schuler MD LAB BLOOD ORDERABLES Final Re sult Performing Organization Address [facility] Co de Phone Number [facility] [place] [address] * (ABNORMAL) Basic metabolic panel (06/12/2024 4:18 PM LAST WAXER) Sodium 140 135 - 145 mmol/L Potassium, pl 4.2 3.3 - 4.9 mmol/L [facility] Comment:Hemolyzed; Potassium value may be falsely elevated by as much as 0.3-0.5 mmol/L. Suggest redraw and reanalysis. Chloride 106 97 - 110 mmol/L [facility] CO2 21(L) 22 - 32 mmol/L [facility] Anion gap 13 2 - 15 mmol/L [facility] BUN 9 6 - 25 mg/dL [facility] Creatinine 0.68 0.60 - 1.10 mg/dL [facility] Glucose 88 70 - 199 mg/dL [facility] Comment: Interpretive Data Fasting glucose [...] Calcium 9.3 8.5 - 10.3 mg/dL [facility] Blood 06/12/2024 4:18 PM LAST WAXER 06/12/2024 4:35 PM LAST WAXER us Zachariah Schuler MD LAB BLOOD ORDERABLES Final Re sult [facility] Department [place] [address] from Last 3 Months Insurance [facility] Care Teams Jacquard Card Lacer Relationship Specialty Start Date End Date Stephanie Miranda MD PCP - General Family Practice 02/05/22 Referring, Unknown, Pediatrics 3/21/19
--- OUTSIDE RECORDS SUMMARY | 2024-07-11 08:11 | XMS_ITS | Encounter Summary ---
Author Organization [facility] Address [address] [facility] [address] [place] [address] Care Team Providers Care Access Liaison Name Role Phone Referring, Unknown Stephanie Pimentel MD Primary Care Provider Encounter Details Date Type Department Care Team (Late st Contact Info) Description 02/11/2022 11:30 AM CDT Lab [facility] Outpatient Lab at [address] [phone] Moderate episode of recurrent major [...] on file Legal Sex Female 5:18 AM PROBATION AND PATROL AGENT Gender Identity Not on file Sexual Orientation Not on file documented as of this encounter Plan of Treatment Not on file documented as of this encounter Visit Diagnoses Diagnosis Moderate episode of recurrent major depressive disorder (HCC) documented in this encounter Care Teams Access Liaison Relationship Specialty Start Date End Date Stephanie Miranda MD PCP - General Family Practice 02/05/22 Referring, Unknown, Pediatrics 10/01/18 documented as of this encounter
--- OUTSIDE RECORDS SUMMARY | 2024-07-11 08:11 | XMS_ITS | Encounter Summary ---
Author Organization [facility] Address [address] [address] Care Team Providers Care Revenue Field Agent Name Role Phone Referring, Unknown Stephanie Pimentel MD Primary Care Provider Encounter Details Date Type Department Care Team (Late st Contact Info) Description 02/13/2022 Telephone [facility] Group Sports Medicine and Primary Care at [address] [place] [address] Stephanie Miranda MD [address] [place] [address] [address] [place] [address] Social History Tobacco Use Types [...] on file Legal Sex Female 5:18 AM LEAD 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
--- OUTSIDE RECORDS SUMMARY | 2024-07-11 08:12 | XMS_ITS | Encounter Summary ---
Author Organization [facility] Address [address] [place] [address] Care Team Providers Care Manager Pathology Name Role Phone Unavailable Primary Care Provider Unavailabl e Encounter Details Date Type Department Care Team (Latest Contact Info) Description 07/19/2017 9:25 PM CABANA ATTENDANT - 07/20/2017 2:23 AM CABANA ATTENDANT Hospital Encounter [facility] Ronal Abbasi MD [address] [facility] [place] [address] Shortness of breath; Uncomplicated asthma Social History Tobacco Use Types Packs/Day Years Used Date Smoking Tobacco: Never Assessed Comments Unknown Sex and Gender Information Value Date Recorded Sex Assigned at Not on file Legal Sex Female 5:18 AM CABANA ATTENDANT Gender Identity Not on file Sexual Orientation Not on file documented as of this encounter Last Filed Vital Signs Vital Sign Reading Time Taken Comments Blood Pressure 159/73 07/19/2017 9:29 PM CABANA ATTENDANT Pulse 96 07/19/2017 9:29 PM CABANA ATTENDANT Temperature 36.8 ??C (98.3 ??F) 07/19/2017 9:29 PM CS T Respiratory Rate - - Oxygen Saturation 98% 07/19/2017 9:29 PM CABANA ATTENDANT Inhaled Oxygen Concentration - - Weight 94.3 kg (208 lb) 07/19/2017 9:29 PM CABANA ATTENDANT Height 167.6 cm (5' 6 ) 07/19/2017 9:29 PM CABANA ATTENDANT Body Mass Index 33.57 07/19/2017 9:29 PM CABANA ATTENDANT Body Mass Index Percentile 97.36% 07/19/2017 9:2 9 PM CABANA ATTENDANT Growth Chart: CDC (Girls, 2- 20 Years) documented in this encounter Plan of Treatment Not on file documented as of this encounter Procedures Procedure Name Priority Date/Time Associated Diagnosis Comments INFLUENZA A/B ANTIGENS, RAPID Routine 07/19/2017 9:57 PM CABANA ATTENDANT XR CHEST PA LATERAL 2 VIEWS Routine 07/19/2017 9:49 PM CABANA ATTENDANT documented in this encounter Results * Influenza A/B antigens, rapid (07/19/2017 9:57 PM CABANA ATTENDANT) Influenza A Ag NEGATIVE NEGATIVE Influenza B Ag NEGATIVE NEGATIVE Comment: A NEGATIVE RESULT DOES NOT ELIMINATE THE POSSIBILITY OF AN ?? INFLUENZA A OR B INFECTION. ??INADEQUATE SPECIMEN COLLECTION ?? OR IMPROPER SAMPLE HANDLING/TRANSPORT, OR LOW LEVELS OF ?? VIRAL SHEDDING MAY YIELD A FALSE NEGATIVE RESULT. 07/19/2017 9:57 PM CABANA ATTENDANT 07/19/2017 10:36 PM CABANA ATTENDANT Narrative [facility] HISTORICAL RESULTS - 07/19/2017 11:01 PM CABANA ATTENDANT Collected By us Deanna Trevizo VIDEO GAME PROGRAMMER LAB MICROBIOLOGY - GENERAL O [place] Final Result [facility] HISTORICAL RESULTS * XR Chest Pa Lateral 2 Views (07/19/2017 9:49 PM CABANA ATTENDANT) Anatomical Region Laterality Modality Body, Chest N/A Radiographic Cecilia ging 07/19/2017 9:49 PM CABANA ATTENDANT Impressions 07/19/2017 11:07 PM CABANA ATTENDANT ??Unremarkable chest radiographs. THIS IS AN ELECTRONICALLY VERIFIED REPORT 07/19/2017 11:03 PM: ??Maxwell Henry M.D. ?? Maxwell Henry M.D. AR:digna 11:03 PM 11:03 PM RYN [EOD] Narrative 07/19/2017 11:07 PM CABANA ATTENDANT EXAMINATION: ??Chest PA and lateral HISTORY: ??Sternal [...]
--- OUTSIDE RECORDS SUMMARY | 2024-07-11 08:12 | XMS_ITS | Encounter Summary ---
Author Organization [facility] Care Team Providers Care Director Index Name Role Phone Unavailable Primary Care Provider Unavailabl e Encounter Details Date Type Department Care Team (Late st Contact Info) Description 05/16/2014 7:09 PM PHONE COUNSELOR - 05/16/2014 9:19 PM PHONE COUNSELOR Hospital Encounter [facility] [place] [address] [place] [address] Tietze's disease; Cough; Asthma Social History Tobacco Use Types Packs/Day Years Used Date Smoking Tobacco: Never Assessed Comments Unknown Sex and Gender Information Value Date Recorded Sex Assigned at Not on file Legal Sex Female 5:18 AM PHONE COUNSELOR Gender Identity Not on file Sexual Orientation Not on file documented as of this encounter Plan of Treatment Not on file documented as of this encounter 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
--- OUTSIDE RECORDS SUMMARY | 2024-07-11 08:12 | XMS_ITS | Encounter Summary ---
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
--- OUTSIDE RECORDS SUMMARY | 2024-07-11 08:12 | XMS_ITS | Encounter Summary ---
Author Organization [facility] Care Team Providers Care Dry Cans Operator Name Role Phone Unavailable Primary Care Provider Unavailabl e Encounter Details Date Type Department Care Team (Late st Contact Info) Description 08/31/2014 7:45 PM PERFECT BINDER FEEDER OFFBEARER - 08/31/2014 11:08 PM PERFECT BINDER FEEDER OFFBEARER Hospital Encounter [facility] Paula Martin MD [address] [place] [address] [address] [place] [address] Other and unspecified noninfectious gastroenteritis and colitis Social History Tobacco Use Types Packs/Day Years Used Date Smoking Tobacco: Never Assessed Comments Unknown Sex and Gender Information Value Date Recorded Sex Assigned at Not on file Legal Sex Female 5:18 AM PERFECT BINDER FEEDER OFFBEARER Gender Identity Not on file Sexual Orientation Not on file documented as of this encounter Plan of Treatment Not on file documented as of this encounter Visit Diagnoses Diagnosis Other and unspecified noninfectious gastroenteritis and colitis documented in this encounter
--- OUTSIDE RECORDS SUMMARY | 2024-07-11 08:12 | XMS_ITS | Encounter Summary ---
Author Organization [facility] Healthcare Address [address] [place] [address] Care Team Providers Care Clinical Research Scientist Name Role Phone Unavailable Primary Care Provider Unavailabl e Encounter Details Date Type Department Care Team (Late st Contact Info) Description 07/18/2018 8:30 PM SHADOWGRAPH OPERATOR - 07/19/2018 2:34 AM SHADOWGRAPH OPERATOR Hospital Encounter [facility] ER Amber Cortés MD [address] [facility] [address] [place], [place] [id number] Cyst of right ovary Social History Tobacco Use Types Packs/Day Years Used Date Smoking Tobacco: Never Assessed Comments Unknown Sex and Gender Information Value Date Recorded Sex Assigned at Not on file Legal Sex Female 5:18 AM SHADOWGRAPH OPERATOR Gender Identity Not on file Sexual Orientation Not on file documented as of this encounter Last Filed Vital Signs Vital Sign Reading Time Taken Comments Blood Pressure 125/64 07/18/2018 8:37 PM SHADOWGRAPH OPERATOR Pulse 87 07/18/2018 8:37 PM SHADOWGRAPH OPERATOR Temperature 36.6 ??C (97.9 ??F) 07/18/2018 8:37 PM CS T Respiratory Rate - - Oxygen Saturation 99% 07/18/2018 8:37 PM SHADOWGRAPH OPERATOR Inhaled Oxygen Concentration - - Weight 106.6 kg (235 lb) 07/18/2018 8:37 PM SHADOWGRAPH OPERATOR Height 167.6 cm (5' 6 ) 07/18/2018 8:37 PM SHADOWGRAPH OPERATOR Body Mass Index 37.93 07/18/2018 8:37 PM SHADOWGRAPH OPERATOR Body Mass Index Percentile 98.69% 07/18/2018 8:3 7 PM SHADOWGRAPH OPERATOR Growth Chart: CDC (Girls, 2- 20 Years) documented in this encounter Plan of Treatment Not on file documented as of this encounter Procedures Procedure Name Priority Date/Time Associated Diagnosis Comments VAGINAL PATHOGEN SCREEN Routine 07/19/2018 2:[address] ABDOMEN PELVIS W CONTRAST Routine 07/19/2018 12:01 AM SHADOWGRAPH OPERATOR URINALYSIS AND REFLEX TO MICROSCOPIC AND CULTURE Routine 07/18/2018 10:35 PM SHADOWGRAPH OPERATOR N. GONORRHOEAE DNA PROBE GENITAL OR URINE Routine 07/18/2018 10:35 PM SHADOWGRAPH OPERATOR CBC WITH AUTO DIFFERENTIAL Routine 07/18/2018 9:51 PM SHADOWGRAPH OPERATOR LIPASE Routine 07/18/2018 9:51 PM SHADOWGRAPH OPERATOR COMPREHENSIVE METABOLIC PANEL Routine 07/18/2018 9:51 PM SHADOWGRAPH OPERATOR documented in this encounter Results * VAGINAL PATHOGEN SCREEN (07/19/2018 2:20 AM SHADOWGRAPH OPERATOR) Pathologist [facility] Trichomonas vaginalis NEGATIVE NEGATIVE 07/19/2018 3:45 AM SHADOWGRAPH OPERATOR [facility] [employer] [facility] HISTORICAL RESULTS GARDNERELLA SCREEN POSITIVE NEGATIVE 2018 3:45 AM SHADOWGRAPH OPERATOR [facility] HISTORICAL RESULTS Jessica species DNA NEGATIVE NEGATIVE 07/19/2018 3:45 AM SHADOWGRAPH OPERATOR [facility] HISTORICAL RESULTS Comment: A positive result for Jessica, Gardnerella and/or Trichomonas means nucleic acid for Jessiac species (C.albicans,C.glabrata,Ckefyr,C.krusei,C.parapsilosis, C.tropicalis),G.vaginalis and/or T.vaginalis,respectively, is present [...] clinical signs and symptoms. 07/19/2018 2:20 AM SHADOWGRAPH OPERATOR 07/19/2018 2:39 AM SHADOWGRAPH OPERATOR Narrative [facility] HISTORICAL RESULTS - 07/19/2018 3:45 AM SHADOWGRAPH OPERATOR Collected By cd us Cori L. Moo MD LAB BLOOD ORDERABLES Final Resu lt [facility] HISTORICAL RESULTS * CT Abdomen Pelvis W Contrast (07/19/2018 12:01 AM SHADOWGRAPH OPERATOR) Anatomical Region Laterality Modality Body N/A Computed Tomogra phy 07/19/2018 12:0 1 AM SHADOWGRAPH OPERATOR Impressions 07/19/2018 2:10 AM SHADOWGRAPH OPERATOR ??The appendix is difficult to identify but [...] D: ??07/19/2018 2:07 AM T: Report ID: [id number] Reading Location: ??[id number] [EOD] Narrative 07/19/2018 2:10 AM SHADOWGRAPH OPERATOR EXAM DESCRIPTION: ??CT Abd/Pelvis W IV Contrast [...] Eugenia Bhat M.D. JS T: Report ID: [id number] Reading Location: [place] [id number] [EOD] us Amber Cortés MD IMG CT PROCEDURES Final Result * (ABNORMAL) Urinalysis reflex to microscopic and culture (07/18/2018 10:35 PM SHADOWGRAPH OPERATOR) Ur Collection Type CLEAN CATCH Ur Culture Indicated? C&S NOT INDICATED 07/18/2018 11:11 PM [facility] HISTORICAL RESULTS Urine Color YELLOW YELLOW Urine Clarity CLEAR CLEAR Urine Glucose (UA) NORMAL NORMAL mg/dL 07/18/2018 11:11 PM [facility] HISTORICAL RESULTS Urine Bilirubin NEGATIVE NEGATIVE mg/dl Urine Ketones NEGATIVE NEGATIVE mg/dL Ur Specific Farner 1.020 1.005 - 1.025 Urine Blood NEGATIVE [...] Cells Rare /HPF 07/18/2018 10:3 5 PM SHADOWGRAPH OPERATOR 07/18/2018 10:44 PM SHADOWGRAPH OPERATOR Narrative [facility] HISTORICAL RESULTS - 07/18/2018 11:11 PM SHADOWGRAPH OPERATOR Indication(s) for ordering ? Pain-pelv/flank/suprapubc Amber Cortés MD LAB MICROBIOLOGY - GENERAL SHERRI GIL Final Result [facility] HISTORICAL RESULTS * N. gonorrhoeae DNA probe, genital or urine (07/18/2018 10:35 PM SHADOWGRAPH OPERATOR) C. trachomatis RNA CT NOT DETECTED Comment:Chlamydia [...] or psychological consequences. 07/18/2018 10:3 5 PM SHADOWGRAPH OPERATOR 07/19/2018 2:31 AM SHADOWGRAPH OPERATOR Narrative [facility] HISTORICAL RESULTS - 07/19/2018 2:33 AM SHADOWGRAPH OPERATOR Urine collection method First catch lessthan 50ml ?? Collected By mb ?? Amber Cortés MD LAB MICROBIOLOGY - GENERAL [facility] Final Result [facility] HISTORICAL RESULTS * Lipase (07/18/2018 9:51 PM SHADOWGRAPH OPERATOR) Lipase 36 13 - 60 U/L 07/18/2018 9:51 PM SHADOWGRAPH OPERATOR 07/18/2018 9:54 PM SHADOWGRAPH OPERATOR Amber Cortés MD LAB BLOOD ORDERABLES Final Resu lt [facility] HISTORICAL RESULTS * (ABNORMAL) Comprehensive metabolic panel (07/18/2018 9:51 PM SHADOWGRAPH OPERATOR) Sodium 138 135 - 145 mmol/L Potassium 4.0 3.3 - 5.1 mmol/L 07/18/2018 10:24 PM SHADOWGRAPH OPERATOR [facility] HISTORICAL RESULTS Chloride 105 96 - 108 [...] 45 - 87 U/L 07/18/2018 9:51 PM SHADOWGRAPH OPERATOR 07/18/2018 9:54 PM SHADOWGRAPH OPERATOR us Amber Cortés MD LAB BLOOD ORDERABLES Final Resu lt [facility] HISTORICAL RESULTS * (ABNORMAL) CBC with auto differential (07/18/2018 9:51 PM SHADOWGRAPH OPERATOR) WBC 8.7 3.8 - 9.9 X10 3/ul [...] Gran % 0.3 % 9 10:01 PM [facility] HISTORICAL RESULTS Lymph % 43.3 % Gibson % 7.6 % Eos % 1.1 % [...] 200 - 8000 /ul 07/18/2018 9:51 PM SHADOWGRAPH OPERATOR 07/18/2018 9:54 PM SHADOWGRAPH OPERATOR us Amber Cortés MD LAB BLOOD ORDERABLES Final Resu lt [facility] HISTORICAL RESULTS documented in this encounter Visit Diagnoses Diagnosis Cyst of right ovary Other and unspecified ovarian cyst documented in this encounter
--- OUTSIDE RECORDS SUMMARY | 2024-07-11 08:12 | XMS_ITS | Encounter Summary ---
Author Organization [facility] Healthcare Address [address] [place] [address] Care Team Providers Care Head Bander And Liner Operator Name Role Phone Unavailable Primary Care Provider Unavailabl e Encounter Details Date Type Department Care Team (Latest Contact Info) Description 06/22/2015 2:05 PM WET PROCESS OPERATOR - 06/22/2015 2:17 PM WET PROCESS OPERATOR Hospital Encounter [facility] Mando Wan II, MD [address] [facility] [place], [place] [id number] Rash and other nonspecific skin eruption; Other specified disorders of teeth and supporting structures Social History Tobacco Use Types Packs/Day Years Used Date Smoking Tobacco: Never Assessed Comments Unknown Sex and Gender Information Value Date Recorded Sex Assigned at Not on file Legal Sex Female 5:18 AM WET PROCESS OPERATOR Gender Identity Not on file Sexual Orientation Not on file documented as of this encounter Last Filed Vital Signs Vital Sign Reading Time Taken Comments Blood Pressure 133/63 06/22/2015 2:07 PM WET PROCESS OPERATOR Pulse 70 06/22/2015 2:07 PM WET PROCESS OPERATOR Temperature 36.8 ??C (98.2 ??F) 06/22/2015 2:07 PM CS T Respiratory Rate - - Oxygen Saturation 96% 06/22/2015 2:07 PM WET PROCESS OPERATOR Inhaled Oxygen Concentration - - Weight - - Height - - Body Mass Index - - documented in this encounter Plan of Treatment Not on file documented as of this encounter Visit Diagnoses Diagnosis Rash and other nonspecific skin eruption Other specified disorders of teeth and supporting structures documented in this encounter
--- OUTSIDE RECORDS SUMMARY | 2024-07-11 08:13 | XMS_ITS | Encounter Summary ---
Author Organization [facility] Healthcare Address [address] [place] [address] Care Team Providers Care Inventory Control Analyst Name Role Phone Unavailable Primary Care Provider Unavailabl e Encounter Details Date Type Department Care Team (Late st Contact Info) Description 04/05/2013 5:05 PM CDT - 04/05/2013 6:30 PM CDT Hospital Encounter [facility] Pediculosis Social History Tobacco Use Types Packs/Day Years Used Date Smoking Tobacco: Never Assessed Comments Unknown Sex and Gender Information Value Date Recorded Sex Assigned at Not on file Legal Sex Female 5:18 AM 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
== END | disposition left against medical advice (07) ==
LOC: ANHED 09:23
DX: K08.89 Other specified disorders of teeth and supporting structures (principal)
CPT/HCPCS: 99199